=== PATIENT | female | born 1955 | race Caucasian/White ===

== ENCOUNTER → 2016-09-26 | Outpatient (CLI) | payer OTHER ==
[2016-09-26 13:11] LABS: BASO ABS # 0.04 K/uL (0-0.2); COMPLETE YES; EOS % 2.9 %; HEMATOCRIT 39.1 % (37-47); LYMPH ABS # 1.53 K/uL (1.2-3.4); MEAN CELL VOLUME 94.4 fL (80-100); MEAN CORPUSCULAR HEMOGLOBIN 31.2 pg (25-34); MEAN PLATELET VOLUME 10.1 fL (7.4-10.4); MONO % 9.4 %; NEUT % 49.7 %; PLATELET COUNT 278 K/uL (130-400); RED BLOOD COUNT 4.14 M/uL (4.2-5.4); WHITE BLOOD COUNT 4.13 K/uL (4.8-10.8)
[2016-09-26 13:35] LABS: ALT/SGPT 29 U/L (12-78); AST/SGOT 25 U/L (15-37); BLOOD UREA NITROGEN 19 mg/dl (7-18); BUN/CREATININE RATIO 22.7 (10-20); CALCIUM 8.7 mg/dl (8.5-10.1); CARBON DIOXIDE 28 mmol/L (21-32); CHLORIDE 106 mmol/L (98-107); CREATININE 0.85 mg/dl (0.60-1.20); GLUCOSE 82 mg/dl (70-99); POTASSIUM 4.1 mmol/L (3.5-5.1); SODIUM 139 mmol/L (136-145)
[2016-09-26 13:38] LABS: ALB/GLOB RATIO 1.1 (0.9-2); ALKALINE PHOSPHATASE 59 U/L (45-117); CHOLESTEROL 220 mg/dl (0-200); CHOLESTEROL/HDL RATIO 2.4; HDL CHOLESTEROL 90 mg/dl; LDL CHOLESTEROL CALCULATED 112 mg/dl; TRIGLYCERIDES 88 mg/dl (0-150); VERY LOW DENSITY LIPOPROT CALC 18 mg/dl
[2016-09-26 14:04] LABS: LYME DISEASE AB IGG NEG (NEG); LYME DISEASE AB IGM NEG (NEG)
== END | disposition home or self-care (01) ==
LOC: C.LABPBG 07:52
PROVIDERS: ATTEND Physician Assistant
DX: Z00.00 Encounter for general adult medical examination without abnormal findings (principal); R59.1 Generalized enlarged lymph nodes

== ENCOUNTER → 2017-09-05 | Outpatient (CLI) | payer OTHER ==
[2017-09-05 16:46] LABS: BASO % 0.6 %; BASO ABS # 0.03 K/uL (0-0.2); EOS % 3.3 %; EOS ABS # 0.18 K/uL (0-0.5); HEMATOCRIT 38.8 % (37-47); HEMOGLOBIN 13.1 g/dL (12.0-16.0); LYMPH % 35.8 %; LYMPH ABS # 1.94 K/uL (1.2-3.4); MEAN CELL VOLUME 92.2 fL (80-100); MEAN CORPUSCULAR HEMOGLOBIN 31.1 pg (25-34); MEAN CORPUSCULAR HGB CONC 33.8 g/dl (32-36); MEAN PLATELET VOLUME 10.6 fL (7.4-10.4); MONO % 8.3 %; MONO ABS # 0.45 K/uL (0.11-0.59); NEUT ABS # 2.82 K/uL (1.4-6.5); PLATELET COUNT 278 K/uL (130-400); RED CELL DISTRIBUTION WIDTH CV 12.7 % (11.5-14.5); WHITE BLOOD COUNT 5.42 K/uL (4.8-10.8)
[2017-09-05 17:17] LABS: ALBUMIN 4.1 gm/dl (3.4-5.0); ALKALINE PHOSPHATASE 60 U/L (45-117); ALT/SGPT 29 U/L (12-78); AST/SGOT 23 U/L (15-37); BLOOD UREA NITROGEN 21 mg/dl (7-18); CALCIUM 9.1 mg/dl (8.5-10.1); CARBON DIOXIDE 28 mmol/L (21-32); GLUCOSE 92 mg/dl (70-99); POTASSIUM 4.1 mmol/L (3.5-5.1); SODIUM 137 mmol/L (136-145); TOTAL PROTEIN 7.3 gm/dl (6.4-8.2)
== END | disposition home or self-care (01) ==
LOC: C.LABPBG 11:38
PROVIDERS: ATTEND Family Medicine
DX: R53.83 Other fatigue (principal); M25.50 Pain in unspecified joint; W57.XXXA Bitten or stung by nonvenomous insect and other nonvenomous arthropods, initial encounter

== ENCOUNTER 2024-01-17 08:47 | Observation (INO) ==
--- NOTE | 2024-01-17 09:03 | Emergency Department Note ---
Impression & Plan Weakness of both legs, Aphasia, Tongue biting ED Provider Note NAME: HAMILTON ELIZABETH AGE: 68 SEX: F : 1955 ARRIVES VIA: Ambulance INFORMANT: Patient, EMS report ED PROVIDER(S): Ritesh Cancino MD CHIEF COMPLAINT: Possible seizure, word finding difficulty MEDICAL DECISION MAKING: Patient presents to concern for possible seizures the patient reportedly woke up incontinent around 4 AM and had associated difficulty with speech for EMS. Patient was a trauma alert and also initiated as a stroke alert given these symptoms. IV was established and blood work was obtained. The patient does have bilateral lower extremity weakness may be more prominent on the right side. Word finding difficulty noted so code stroke was initiated. Patient not likely TNK candidate as last known well would been sometime prior to 4 AM and the patient reportedly fell and hit her head. Patient did have CT head CT angiography of the head and neck CT cervical spine noncontrast as well as CT lumbar spine given the patient's fall and leg weakness. Patient also loaded with 2 g of Keppra. Patient's blood work shows a normal white count H&H and platelet count kidney function is unremarkable. BSG 102. The patient's imaging studies are unremarkable. The patient has a negative shoulder x-ray CT angiography of the head and neck and Noncon CT. CT lumbar spine negative. Chest x-ray also negative. Patient does feel as though she knows when to use the bathroom currently has no sensory deficits in her lower extremities. I did discuss the patient's case with telestroke neurology Dr. Perry who did evaluate the patient. He was concerned about possible cord compression. Cord compression alone likely would not explain the patient's symptoms of word finding difficulty and possible seizure given the tongue biting incontinence but given that the patient does have lower extremity weakness and incontinence over the evening not unreasonable to obtain. However, the patient does feel the need to use the bathroom and does not have any saddle anesthesia. The patient was ordered an MRI with and without contrast of the brain as well as an MR lumbar spine without as stat. For reassessment clinically the patient seems less confused does not seem to have as much word finding difficulty. The patient did have her MRIs completed of the brain thoracic spine and lumbar spine. These were negative. I did reach out to Dr. Perry who recommended that the patient still obtain the cervical spine MRI but if negative could consider baby aspirin treatment. Critical Care: I have personally spent 35 minutes of critical care time in direct management of this patient. This includes bedside care, interpretation of diagnostic studies, and testing, discussion with consultants, patient, and family members, and other require inpatient management activities. This 35 minutes is in excess of all separately billable procedures. Discussion w/ other healthcare providers: Dr. Perry telestroke neurology Fariba Hannah PA-C and Dr. Martinez inpatient medicine service Prior /Outside records reviewed: None Differential diagnosis: Seizure, ICH, brain mass, stroke, infection, dehydration, metabolic abnormality, hypo/hyperglycemia, electrolyte imbalance, anemia, UTI, pneumonia, thyroid dysfunction among others were considered. Diagnostics, as interpreted by me: ECG: Normal sinus rhythm, rate of 75, normal intervals, normal axis no ST elevations. Cardiac monitoring: An order was placed for continuous cardiac monitoring. The monitor shows a rate of 75 with sinus rhythm. Patient was placed on pulse oximetry Medical decision rules: None Imaging studies: I informally interpreted the patient's CT head does not show obvious ICH with formal report to follow. HPI: Patient presents due to concern for waking up incontinent and then had weakness in her legs fell out of bed striking the right side of her shoulder as well as possibly her head. EMS reportedly presented and described that the patient had difficulty with speaking. At the time that they were at the home where prescription Freddie was negative. Patient reportedly only complained of right shoulder pain at the initial time of assessment. The patient's BSG was normal and had normal vital signs. Afebrile upon presentation. Patient does describe that she fell and hit her head and that she is never had any incontinence before. The patient does believe that she bit her tongue. No prior history of seizure. No prior history of stroke or mini stroke. The patient does not take any blood thinning medications. The patient does feel as though her legs are weak. Additional history was obtained from family. They have noticed that the patient has had some memory issues over the last months. She did have a remote history of anaplasmosis in the past. No reported recent tick bites. No prior history of stroke or mini stroke. No concerns for alcohol tobacco or drug use. PAST MEDICAL HISTORY: See Below PAST SURGICAL HISTORY: See Below SOCIAL HISTORY: See Below HOME MEDICATIONS: See Below ALLERGIES: See Below VITALS: See Below PHYSICAL EXAMINATION: GENERAL: NAD, non-toxic. EYE EXAM: Normal conjunctiva. PERRL, no anisocoria and EOM's grossly intact w/o pain. OROPHARYNX: Moist mucus membranes, grossly normal dentition. NECK: Trachea midline, no stridor. Supple, no nuchal rigidity, no adenopathy, non-tender. No signs of meningismus. FROM of the neck with good chin to chest and neck extension. LUNGS: Clear to auscultation. Normal chest wall mechanics. HEART: NSR, no MRG. ABDOMEN: Abdomen soft, non-tender, no masses, no rebound or guarding. BACK: No CVA TTP. SKIN: No rashes and no bruising. UPPER EXTREMITIES: Upper extremities are grossly normal. Right shoulder pain no obvious deformity. LOWER EXTREMITIES: Grossly normal, no edema. No sensory deficits and no saddle anesthesia. NEURO EXAM: Awake and alert does follow commands intermittently confused, cranial nerves II-XII grossly intact, word finding difficulty/expressive aphasia/inappropriate speech, moves all 4 extremities but weakly in the bilateral lower extremities may be more prominent on the right side compared to the left. Past Med/Surg History Problem List (Updated 01/17/24 @ 16:54 by Ritesh Cancino MD) Tongue biting (Acute) Aphasia (Acute) Weakness of both legs (Acute) Insomnia OAB (overactive bladder) Sensorineural hearing loss (SNHL) of left ear Tinnitus of left ear Dyslipidemia Seborrheic keratoses Vitamin D deficiency Medical History Hx of one miscarriage Surgical History H/O tooth extraction History of oral surgery H/O kidney donation S/P dilatation and curettage x 2 Family History Mother Bipolar disorder Cardiac disorder Depression Diabetes Gallbladder disease Myocardial infarction Hypertension Heart disease Father Cardiac disorder Diabetes Hypertension Myocardial infarction Heart disease Sister Cardiac disorder Myocardial infarction Brother Diabetes Hypertension Stroke Denies family history of Ovarian cancer Prostate cancer Breast cancer Colorectal cancer Social History Smoking Status: Never smoker Age Started Using Tobacco: 15; Age Quit Using Tobacco: 22; packs per day: 0.5; Second Hand Exposure: No; Do You Dip or Chew Tobacco: No; Hx Alcohol Use: No Hx Substance Use: No Preferred Language: Bengali Communication Ability: Effective Visual Impairment: No Limitations Hearing Ability: Normal Lead Athlete Required: No Beliefs That Will Affect Care: None marital status: / Current Living Situation: Alone current occupational status: 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 Occasionally eats chicken caffeine: Yes (two cups coffee/day ) during the past year weight has: remained stable Dental Care, Regularly: Yes Physical Activity Frequency: Daily Seatbelt Use: always Sunscreen Use: Yes Assistive Devices: None Allergies Allergies Allergy/AdvReac Type Severity Reaction Status Date / Time No Known Allergies Allergy Verified 01/17/24 10:25 Home Meds Home Medications Medication Instructions Recorded Confirmed coenzyme Q10 100 mg capsule 100 mg PO DAILY 01/17/24 01/17/24 (CoQ-10) ezetimibe 10 mg tablet (Zetia) 10 mg PO HS 01/17/24 01/17/24 pravastatin 20 mg tablet 20 mg PO QAM 01/17/24 01/17/24 Previous Rx's Medication Instructions Recorded hydroxyzine pamoate 25 mg capsule 25 mg PO HS PRN Insomnia #90 caps 01/17/24 (Vistaril) Results & Data (ED) Vital Signs Vital Signs - 24 hr 01/17/24 08:58 01/17/24 09:46 01/17/24 10:16 Temperature 36.6 C Temperature Source Oral Pulse Rate 73 Pulse Rate [Apical] 76 Pulse Rhythm Regular Pulse Rhythm [Apical] Regular Pulse Strength Normal Pulse Strength [Apical] Normal Respiratory Rate 20 18 Respiratory Effort / Characteristics Non-Labored Spontaneous Non-Labored Spontaneous Respiratory Depth Normal Normal Respiratory Pattern Regular Regular Blood Pressure 168/101 H Blood Pressure [Right Arm] 160/95 H Blood Pressure Mean 123 Blood Pressure Mean [Right Arm] 116 Blood Pressure Position Sitting Blood Pressure Position [Right Arm] Pulse Oximetry 96 99 99 Oxygen Delivery Method Room Air Room Air Room Air Sepsis Recent Fever Within 48 Hours No Sepsis New/Unexplained Change in Mental Status No Sepsis Action Taken by Nursing No Action Required 01/17/24 11:08 01/17/24 12:55 Temperature 36.6 C 36.8 C Temperature Source Oral Oral Pulse Rate Pulse Rate [Apical] 64 66 Pulse Rhythm Pulse Rhythm [Apical] Regular Regular Pulse Strength Pulse Strength [Apical] Normal Normal Respiratory Rate 18 18 Respiratory Effort / Characteristics Non-Labored Spontaneous Non-Labored Spontaneous Respiratory Depth Normal Normal Respiratory Pattern Regular Regular Blood Pressure Blood Pressure [Right Arm] 175/128 H 139/81 Blood Pressure Mean Blood Pressure Mean [Right Arm] 143 100 Blood Pressure Position Blood Pressure Position [Right Arm] Semi-fowlers Pulse Oximetry 99 98 Oxygen Delivery Method Room Air Room Air Sepsis Recent Fever Within 48 Hours Sepsis New/Unexplained Change in Mental Status Sepsis Action Taken by [facility] Medications Current Medication List: was personally reviewed by me Laboratory Data Attestation: I reviewed the patient's lab results. 01/17/24 08:55 01/17/24 08:55 Lab Results 01/17/24 01/17/24 Range/Units 08:55 11:05 WBC 8.90 (4.8-10.8) K/ul RBC 4.46 (4.20-5.40) M/uL Hgb 13.7 (12.0-16.0) g/dl Hct 39.6 (37.0-47.0) % MCV 88.8 (80.0-100.0) fL MCH 30.7 (25.0-34.0) pg MCHC 34.6 (32.0-36.0) g/dL RDW Std Deviation 39.1 (36.4-46.3) fL RDW Coeff of Nam 12.0 (11.5-14.5) % Plt Count 258 (130-400) K/uL MPV 9.8 (9.4-12.4) fL Immature Gran % (Auto) 0.2 % Neut % (Auto) 70.6 % Lymph % (Auto) 19.7 % [place] % (Auto) 8.2 % Eos % (Auto) 0.7 % Baso % (Auto) 0.6 % Neut # (Auto) 6.29 (1.40-6.50) K/uL Lymph # (Auto) 1.75 (1.20-3.40) K/uL [place] # (Auto) 0.73 H (0.11-0.59) K/uL Eos # (Auto) 0.06 (0.00-0.50) K/uL Baso # (Auto) 0.05 (0.00-0.20) K/uL Immature Gran # (Auto) 0.02 (0.01-0.20) K/uL PT 10.3 (9.0-12.0) Seconds INR 0.9 (0.9-1.1) APTT 26 (21-31) Seconds PTT Ratio 1.0 Sodium 137 (136-145) mmol/L Potassium 3.9 (3.5-5.1) mmol/L Chloride 103 (98-107) mmol/L Carbon Dioxide 26 (21-32) mmol/L Anion Gap 8 (3-11) BUN 18 (6-23) mg/dl Creatinine 0.80 (0.6-1.2) mg/dl Est Cr Clr Drug Dosing 68.3 ml/min eGFR 80.21 BUN/Creatinine Ratio 22.5 H (10-20) Glucose 102 H (70-99(Fasting)) mg/dl POC Glucose 110 H (70-99) mg/dl Calcium 9.6 (8.6-10.3) mg/dl Magnesium 2.1 (1.7-2.4) mg/dl Total Bilirubin 0.8 (0.2-1.0) mg/dl AST 29 (13-39) U/L ALT 21 (7-52) U/L Alkaline Phosphatase 55 (34-104) U/L Troponin I High Sens 12.2 (0-14) pg/ml Total Protein 7.3 (6.0-8.3) gm/dl Albumin 4.3 (3.4-5.0) gm/dl Globulin 3.0 (2.5-4.0) gm/dl Albumin/Globulin Ratio 1.4 (0.9-2) Urine Color Yellow Urine Appearance Clear (Clear) Urine pH 8.0 H (4.5-7.5) Ur Specific [place] 1.034 H (1.000-1.030) Urine Protein Negative (Negative) Urine Glucose (UA) Negative (Negative) Urine Ketones Trace H (Negative) Urine Blood Negative (Negative) Urine Nitrite Negative (Negative) Urine Bilirubin Negative (Negative) Urine Urobilinogen Negative (Negative) Ur Leukocyte Esterase Negative (Negative) Administered Medications Discontinued Medications Gadobutrol (Gadobutrol 65ml Vial) 7 ml IV ONCE ONE Stop: 01/17/24 12:32 Last Admin: 01/17/24 12:31 Dose: 7 ml Documented By: BRANT Ioversol (Optiray 320 125ml) 112 ml IV ONCE ONE Stop: 01/17/24 09:19 Last Admin: 01/17/24 09:18 Dose: 112 ml Documented By: MALU Levetiracetam (Levetiracetam 500 Mg/5 Ml Vial) 2,000 mg IV NOW STA Stop: 01/17/24 08:59 Last Admin: 01/17/24 09:22 Dose: 2,000 mg Documented By: BECCA Imaging Data Radiologist's Impression: Cervical Spine CT 01/17/24 08:58 CT cervical spine wo con CLINICAL HISTORY: 68 years-old Female with fall. Acute neck pain status post fall COMPARISON: CTA neck of same day TECHNIQUE: Multiple axial CT images of the cervical spine were obtained without contrast. A dose lowering technique was utilized adhering to the principles of ALARA. FINDINGS: There is straightening of the normal cervical lordosis. Moderate to severe disc space narrowing at C5-C6 with circumferential disc osteophyte complex. Multilevel facet arthrosis is moderate to severe at several levels on the left and also on the right at C3-C4. 3 mm anterolisthesis C3 on C4 is likely secondary to the aforementioned chronic facet arthrosis. C1-C2 articulation is preserved. The cervical soft tissues appear unremarkable. The visualized lung apices appear clear. IMPRESSION: No acute cervical spine fracture or subluxation. ACT 112: Negative or not required by law. The above report was generated using voice recognition software. It may contain grammatical, syntax or spelling errors. Electronically signed by: Howard Alexander M.D. 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 Coarsened interstitium is likely chronic. No pneumothorax, pleural effusion or airspace consolidation. Mild upper thoracic levoscoliosis. The bones appear grossly intact. IMPRESSION: No acute process. ACT 112: Negative or not required by law. The above report was generated using voice recognition software. It may contain grammatical, syntax or spelling errors. Electronically signed by: Howard Alexander M.D. 01/17/2024 10:[address] 01/17/24 08:58 CT angio neck with con, CT head/brain wo con CLINICAL HISTORY: neuro deficit, acute stroke suspected TECHNIQUE: Contiguous axial CT images of the head were acquired from the base of the skull to the vertex without intravenous contrast administration. CT angiography of the neck was performed following intravenous administration of iodinated contrast. Coronal and sagittal MIPS were obtained from the axial data set and were submitted for review. Automated dose lowering techniques and/or adjustment according to patient size were utilized for this examination. All measurements were calculated based on NASCET criteria. CT DOSE: 2992.66 mGy.cm Comparison: None available at the time of this dictation. FINDINGS: CT head: There is no acute intracranial hemorrhage or evidence of acute territorial infarction. No shift of the midline structures, mass effect, or extra-axial abnormalities are shown. Lungs and soft tissues are unremarkable. CTA Neck: A 3 vessel aortic arch is shown. There is no significant atherosclerotic plaque in the aortic arch or the origins of the innominate, left common carotid, and left subclavian arteries. The common carotid, external carotid, cervical segments of the internal carotid arteries, and the cervical segments of the vertebral arteries are patent without hemodynamically significant stenosis. The left vertebral artery is dominant. IMPRESSION: 1. No acute intracranial hemorrhage, evidence of acute territorial infarction, or other acute intracranial disease process. 2. No occlusion, hemodynamically significant stenosis, or dissection in the major cervical arteries. Assessment of stenosis of the internal carotid arteries is based on NASCET criteria. ACT 112: Negative or not required by law. Electronically signed by: Sami Tejada M.D. 01/17/2024 9:46 AM Head CTA 01/17/24 08:58 CT angio head w con CLINICAL HISTORY: 68 years-old Female with neuro deficit, acute stroke suspected. Acute stroke like symptoms COMPARISON STUDY: Head CT same day, brain MRI 05/01/2023 TECHNIQUE: Unenhanced axial CT scan of the brain is performed. Subsequently, following the IV administration of 112 cc of Optiray, CT angiogram of the brain was performed from the skull base to the vertex. Images are reviewed in the axial, sagittal, and coronal planes. 3-D MIPS images are created and assessed. IV contrast was administered without complication. All measurements were obtained according to NASCET criteria. A dose lowering technique was utilized adhering to the principles of ALARA. FINDINGS: CT BRAIN: Dictated separately. CT ANGIOGRAM OF THE BRAIN: The imaged bilateral internal carotid arteries are patent. The bilateral anterior and middle cerebral arteries are also patent. The vertebrobasilar system and posterior cerebral arteries are widely patent. origin of the right posterior cerebral artery. There is no aneurysm, high-grade stenosis, or proximal branch occlusion identified. Dural sinuses appear patent. IMPRESSION: Unremarkable CTA of the head. ACT 112: Negative or not required by law. The above report was generated using voice recognition software. It may contain grammatical, syntax or spelling errors. Electronically signed by: Howard Alexander M.D. 01/17/2024 9:[address] 01/17/24 08:58 CT lumbar spine wo con CLINICAL HISTORY: fall, leg weakness TECHNIQUE: Multidetector row helical CT of the lumbar spine was performed without administration of intravenous contrast. Coronal and sagittal reformations were obtained. Automated dose lowering techniques and/or adjustment according to patient size were utilized for this exam. Comparison: None available at the time of this dictation. FINDINGS: For counting purposes, the last complete intervertebral disc space is considered L5-S1. No acute fractures are identified. Vertebral body heights and disk spaces are well maintained. Vertebral body alignment is within normal limits. A hiatal hernia is seen. IMPRESSION: No evidence of acute bony injury. ACT 112: Negative or not required by law. Electronically signed by: Sami Tejada M.D. 01/17/2024 9:47 AM Neck CTA 01/17/24 08:58 CT angio neck with con, CT head/brain wo con CLINICAL HISTORY: neuro deficit, acute stroke suspected TECHNIQUE: Contiguous axial CT images of the head were acquired from the base of the skull to the vertex without intravenous contrast administration. CT angiography of the neck was performed following intravenous administration of iodinated contrast. Coronal and sagittal MIPS were obtained from the axial data set and were submitted for review. Automated dose lowering techniques and/or adjustment according to patient size were utilized for this examination. All measurements were calculated based on NASCET criteria. CT DOSE: 2992.66 mGy.cm Comparison: None available at the time of this dictation. FINDINGS: CT head: There is no acute intracranial hemorrhage or evidence of acute territorial infarction. No shift of the midline structures, mass effect, or extra-axial abnormalities are shown. Lungs and soft tissues are unremarkable. CTA Neck: A 3 vessel aortic arch is shown. There is no significant atherosclerotic plaque in the aortic arch or the origins of the innominate, left common carotid, and left subclavian arteries. The common carotid, external carotid, cervical segments of the internal carotid arteries, and the cervical segments of the vertebral arteries are patent without hemodynamically significant stenosis. The left vertebral artery is dominant. IMPRESSION: 1. No acute intracranial hemorrhage, evidence of acute territorial infarction, or other acute intracranial disease process. 2. No occlusion, hemodynamically significant stenosis, or dissection in the major cervical arteries. Assessment of stenosis of the internal carotid arteries is based on NASCET criteria. ACT 112: Negative or not required by law. Electronically signed by: Sami Tejada M.D. 01/17/2024 9:46 AM Shoulder X-Ray 01/17/24 08:58 XR shoulder RT min 2V routine CLINICAL HISTORY: fall TECHNIQUE: 3 views of the right shoulder were obtained. Comparison: None available at the time of this dictation. FINDINGS: There is no evidence of an acute fracture. Joint spaces are well-preserved. The overlying soft tissues are unremarkable. The visualized portions of the lungs are clear. IMPRESSION: No evidence of acute osseous injury. ACT 112: Negative or not required by law. Electronically signed by: Sami Tejada M.D. 01/17/2024 10:05 AM Lumbar Spine MRI 01/17/24 09:38 MR lumbar spine wo con CLINICAL HISTORY: 68 years-old Female with leg weakness, incontinence. Acute low back pain COMPARISON: Prior lumbar spine of same day TECHNIQUE: Multiplanar, multi sequence MRI of the lumbar spine was performed without intravenous contrast. FINDINGS: Motion degraded exam. Conus medullaris terminates at L1. Unremarkable appearance of the imaged thoracic spinal cord. Minimal marrow edema in the right L5, likely degenerative. No definite acute fracture, subluxation or endplate erosion. No paraspinal or epidural fluid collections. Normal bone marrow signal within the imaged sacrum. Mild multilevel intervertebral disc space narrowing, spondylitic spurring and facet arthrosis. T12-L1: No central canal or neural foraminal stenosis. L1-L2: No central canal or neural foraminal stenosis. L2-L3: Mild to moderate intervertebral disc space narrowing and spondylotic spurring with small circumferential annular disc bulge. Ligamentum flavum thickening with mild to moderate facet arthrosis. Central canal is patent. Minimal inferior bilateral foraminal narrowing. L3-L4: Mild to moderate intervertebral disc space narrowing and spondylotic spurring with small circumferential annular disc bulge. Ligamentum flavum thickening with mild to moderate facet arthrosis. Central canal is patent. Mild bilateral foraminal narrowing. L4-L5: Mild intervertebral disc space narrowing with tiny posterior annular disc bulge. Ligamentum flavum thickening with moderate facet arthrosis. Minimal right foraminal narrowing. The central canal and left neural foramen are patent. L5-S1: Tiny posterior annular disc bulge. Ligamentum thickening with moderate facet arthrosis. No central canal or foraminal narrowing. IMPRESSION: 1. Motion degraded exam with discogenic degeneration as above. 2. No high-grade central canal or foraminal narrowing. 3. No acute fracture. ACT 112: Negative or not required by law. The above report was generated using voice recognition software. It may contain grammatical, syntax or spelling errors. Electronically signed by: Howard Alexander M.D. 01/17/2024 12:24 PM Brain MRI 01/17/24 10:09 MR brain wo/w con HISTORY: 68 years-old Female ?seizure, leg weakness, expressive aphasia acute seizure-like activity COMPARISON: Brain MRI 05/01/2023, head CT 01/17/2024 TECHNIQUE: Multiplanar multisequence MRI of the brain was obtained with and without IV contrast FINDINGS: No restricted diffusion to suggest acute or subacute infarct. Midline structures appear unremarkable. No acute intracranial hemorrhage, midline shift, abnormal extra axial collection, hydrocephalus or intra-axial mass. Cerebral venous sinuses and major arterial flow voids appear patent. Skull, orbits and soft tissues are unremarkable. The mesial temporal lobes appear normal. No evidence of mesial temporal sclerosis. No evidence of cortical dysplasia or calderon matter heterotopia. Involutional changes with mild scattered subcentimeter T2/FLAIR hyperintense foci throughout the white matter, likely chronic microvascular ischemic disease. Findings are unchanged from prior. No abnormal enhancement. IMPRESSION: 1. No acute intracranial abnormality. 2. No abnormal enhancement. 3. Involutional changes with suggestion of mild chronic microvascular ischemic disease. ACT 112: Negative or not required by law. The above report was generated using voice recognition software. It may contain grammatical, syntax or spelling errors. Electronically signed by: Howard Alexander M.D. 01/17/2024 12:59 PM Thoracic Spine MRI 01/17/24 11:30 MR thoracic spine wo con CLINICAL HISTORY: leg weakness TECHNIQUE: Multiplanar sequences through the thoracic spine were obtained, without intravenous contrast. Comparison: None available at the time of this dictation. FINDINGS: Exam is limited by patient motion. The alignment is anatomical. Minimal disc disease is seen without significant canal or neuroforaminal stenosis. The spinal canal and neural foramina are patent. The spinal ligaments are intact, without evidence of disruption or abnormal signal intensity. The spinal cord is normal in signal intensity and there is no evidence of cord contusion. There is no evidence of an extradural, intradural, extramedullary or intramedullary lesion. Visualized soft tissues are normal. IMPRESSION: Limited exam without evidence of cord compression, significant neuroforaminal narrowing or ligamentous injury. ACT 112: Negative or not required by law. Electronically signed by: Sami Tejada M.D. 01/17/2024 1:11 PM Discharge Plan Visit Data Chief Complaint: Neuro Symptoms/Deficit ED Provider: Ritesh Cancino Discharge Problem: Weakness of both legs, Aphasia, Tongue biting Patient Disposition: Admitted As Inpatient Discharge Instructions Interventions: ED Discharge Assessment Last Done: 01/17/24 15:47
[2024-01-17 09:11] LABS: Basophils # (auto) 0.05 K/uL (0.00-0.20); Basophils % (auto) 0.6 %; Eosinophils # (auto) 0.06 K/uL (0.00-0.50); Eosinophils % (auto) 0.7 %; Hematocrit (blood only) 39.6 % (37.0-47.0); Hemoglobin 13.7 g/dl (12.0-16.0); Immature Granulocytes # (auto) 0.02 K/uL (0.01-0.20); Immature Granulocytes % (auto) 0.2 %; Lymphocytes # (auto) 1.75 K/uL (1.20-3.40); Lymphocytes % (auto) 19.7 %; Mean Corpuscular Hemoglobin 30.7 pg (25.0-34.0); Mean Corpuscular Hgb Conc 34.6 g/dL (32.0-36.0); Mean Corpuscular Volume 88.8 fL (80.0-100.0); Mean Platelet Volume 9.8 fL (9.4-12.4); Monocytes # (auto) 0.73 K/uL (0.11-0.59); Monocytes % (auto) 8.2 %; Neutrophils # (auto) 6.29 K/uL (1.40-6.50); Neutrophils % (auto) 70.6 %; Platelet Count 258 K/uL (130-400); RDW Standard Deviation 39.1 fL (36.4-46.3); Red Blood Count 4.46 M/uL (4.20-5.40)
[2024-01-17] MEDS: OPTIRAY 320 125ml IV ONE (09:18)
[2024-01-17] MEDS: levETIRAcetam 500 MG/5 ML VIAL IV STA (09:22)
[2024-01-17 09:35] LABS: Albumin Globulin Ratio 1.4 (0.9-2); Albumin Level 4.3 gm/dl (3.4-5.0); BUN Creatinine Ratio 22.5 (10-20); Bilirubin,Total 0.8 mg/dl (0.2-1.0); Calcium 9.6 mg/dl (8.6-10.3); Creatinine Clr Calc Pharmacy 68.3 ml/min; Magnesium 2.1 mg/dl (1.7-2.4); Potassium 3.9 mmol/L (3.5-5.1); Total Protein 7.3 gm/dl (6.0-8.3)
[2024-01-17 09:42] LABS: Troponin I High Sensitivity 12.2 pg/ml (0-14)
--- NOTE | 2024-01-17 09:48 | CT Scan Report ---
CT angio neck with con, CT head/brain wo con CLINICAL HISTORY: neuro deficit, acute stroke suspected TECHNIQUE: Contiguous axial CT images of the head were acquired from the base of the skull to the gabbi sophia without intravenous contrast administration. CT angiography of the neck was performed following intravenous administration of iodinated contrast. Coronal and sagittal MIPS were obtained from the ax ial data set and were submitted for review. Automated dose lowering techniques and/or adjustment acc ording to patient size were utilized for this examination. All measurements were calculated based on NASCET criteria. CT DOSE: 2992.66 mGy.cm Comparison: None available at the time of this dictation. FINDINGS: CT head: There is no acute intracranial hemorrhage or evidence of acute territorial infarction. No sh ift of the midline structures, mass effect, or extra-axial abnormalities are shown. Lungs and soft tissues are unremarkable. CTA Neck: A 3 vessel aortic arch is shown. There is no significant atherosclerotic plaque in the aor tic arch or the origins of the innominate, left common carotid, and left subclavian arteries. The co mmon carotid, external carotid, cervical segments of the internal carotid arteries, and the cervical segments of the vertebral arteries are patent without hemodynamically significant stenosis. The left vertebral artery is dominant. IMPRESSION: 1. No acute intracranial hemorrhage, evidence of acute territorial infarction, or other acute intrac ranial disease process. 2. No occlusion, hemodynamically significant stenosis, or dissection in the major cervical arteries. Assessment of stenosis of the internal carotid arteries is based on NASCET criteria. ACT 112: Negative or not required by law. Electronically signed by: Sami Tejada M.D. 01/17/2024 9:46 AM
--- NOTE | 2024-01-17 09:48 | CT Scan Report ---
CT lumbar spine wo con CLINICAL HISTORY: fall, leg weakness TECHNIQUE: Multidetector row helical CT of the lumbar spine was performed without administration of i ntravenous contrast. Coronal and sagittal reformations were obtained. Automated dose lowering techniq ues and/or adjustment according to patient size were utilized for this exam. Comparison: None available at the time of this dictation. FINDINGS: For counting purposes, the last complete intervertebral disc space is considered L5-S1. No acute fractures are identified. Vertebral body heights and disk spaces are well maintained. Verteb ral body alignment is within normal limits. A hiatal hernia is seen. IMPRESSION: No evidence of acute bony injury. ACT 112: Negative or not required by law. Electronically signed by: Sami Tejada M.D. 01/17/2024 9:47 AM
--- NOTE | 2024-01-17 09:49 | CT Scan Report ---
CT cervical spine wo con CLINICAL HISTORY: 68 years-old Female with fall. Acute neck pain status post fall COMPARISON: CTA neck of same day TECHNIQUE: Multiple axial CT images of the cervical spine were obtained without contrast. A dose low ering technique was utilized adhering to the principles of ALARA. FINDINGS: There is straightening of the normal cervical lordosis. Moderate to severe disc space narro wing at C5-C6 with circumferential disc osteophyte complex. Multilevel facet arthrosis is moderate to severe at several levels on the left and also on the right at C3-C4. 3 mm anterolisthesis C3 on C4 i s likely secondary to the aforementioned chronic facet arthrosis. C1-C2 articulation is preserved. The cervical soft tissues appear unremarkable. The visualized lung apices appear clear. IMPRESSION: No acute cervical spine fracture or subluxation. ACT 112: Negative or not required by law. The above report was generated using voice recognition software. It may contain grammatical, syntax o r spelling errors. Electronically signed by: Howard Alexander M.D. 01/17/2024 9:47 AM
--- NOTE | 2024-01-17 09:53 | CT Scan Report ---
CT angio head w con CLINICAL HISTORY: 68 years-old Female with neuro deficit, acute stroke suspected. Acute stroke lik e symptoms COMPARISON STUDY: Head CT same day, brain MRI 05/01/2023 TECHNIQUE: Unenhanced axial CT scan of the brain is performed. Subsequently, following the IV adminis tration of 112 cc of Optiray, CT angiogram of the brain was performed from the skull base to the vert ex. Images are reviewed in the axial, sagittal, and coronal planes. 3-D MIPS images are created and a ssessed. IV contrast was administered without complication. All measurements were obtained according to NASCET criteria. A dose lowering technique was utilized adhering to the principles of ALARA. FINDINGS: CT BRAIN: Dictated separately. CT ANGIOGRAM OF THE BRAIN: The imaged bilateral internal carotid arteries are patent. The bilateral anterior and middle cerebral arteries are also patent. The vertebrobasilar system and posterior cerebral arteries are widely fuentes nt. origin of the right posterior cerebral artery. There is no aneurysm, high-grade stenosis, o r proximal branch occlusion identified. Dural sinuses appear patent. IMPRESSION: Unremarkable CTA of the head. ACT 112: Negative or not required by law. The above report was generated using voice recognition software. It may contain grammatical, syntax o r spelling errors. Electronically signed by: Howard Alexander M.D. 01/17/2024 9:52 AM
--- NOTE | 2024-01-17 10:06 | XRay Report ---
XR shoulder RT min 2V routine CLINICAL HISTORY: fall TECHNIQUE: 3 views of the right shoulder were obtained. Comparison: None available at the time of this dictation. FINDINGS: There is no evidence of an acute fracture. Joint spaces are well-preserved. The overlying soft tissue s are unremarkable. The visualized portions of the lungs are clear. IMPRESSION: No evidence of acute osseous injury. ACT 112: Negative or not required by law. Electronically signed by: Sami Tejada M.D. 01/17/2024 10:05 AM
[2024-01-17 10:10] LABS: INR 0.9 (0.9-1.1); Partial Thromboplastin Time 26 Seconds (21-31); Prothrombin Time 10.3 Seconds (9.0-12.0)
--- NOTE | 2024-01-17 10:23 | XRay Report ---
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 Coarsened interstitium is likely chronic. No pneumothorax, pleural ef fusion or airspace consolidation. Mild upper thoracic levoscoliosis. The bones appear grossly intact. IMPRESSION: No acute process. ACT 112: Negative or not required by law. The above report was generated using voice recognition software. It may contain grammatical, syntax o r spelling errors. Electronically signed by: Howard Alexander M.D. 01/17/2024 10:22 AM
[2024-01-17 11:23] LABS: Appearance Urine Clear (Clear); Bilirubin Urine Negative (Negative); Blood Urine Negative (Negative); Color Urine Yellow; Glucose Urine UA Negative (Negative); Ketones Urine Trace (Negative); Leukocyte Esterase Urine Negative (Negative); Nitrite Urine Negative (Negative); Protein Urine Negative (Negative); Specific Gravity Urine 1.034 (1.000-1.030); Urobilinogen Urine Negative (Negative)
--- NOTE | 2024-01-17 12:26 | Magnetic Resonance Report ---
MR lumbar spine wo con CLINICAL HISTORY: 68 years-old Female with leg weakness, incontinence. Acute low back pain COMPARISON: Prior lumbar spine of same day TECHNIQUE: Multiplanar, multi sequence MRI of the lumbar spine was performed without intravenous cont rast. FINDINGS: Motion degraded exam. Conus medullaris terminates at L1. Unremarkable appearance of the helen ged thoracic spinal cord. Minimal marrow edema in the right L5, likely degenerative. No definite acut e fracture, subluxation or endplate erosion. No paraspinal or epidural fluid collections. Normal bone marrow signal within the imaged sacrum. Mild multilevel intervertebral disc space narrowing, spondyl itic spurring and facet arthrosis. T12-L1: No central canal or neural foraminal stenosis. L1-L2: No central canal or neural foraminal stenosis. L2-L3: Mild to moderate intervertebral disc space narrowing and spondylotic spurring with small circ umferential annular disc bulge. Ligamentum flavum thickening with mild to moderate facet arthrosis. C entral canal is patent. Minimal inferior bilateral foraminal narrowing. L3-L4: Mild to moderate intervertebral disc space narrowing and spondylotic spurring with small circ umferential annular disc bulge. Ligamentum flavum thickening with mild to moderate facet arthrosis. C entral canal is patent. Mild bilateral foraminal narrowing. L4-L5: Mild intervertebral disc space narrowing with tiny posterior annular disc bulge. Ligamentum f lavum thickening with moderate facet arthrosis. Minimal right foraminal narrowing. The central canal and left neural foramen are patent. L5-S1: Tiny posterior annular disc bulge. Ligamentum thickening with moderate facet arthrosis. No ce ntral canal or foraminal narrowing. IMPRESSION: 1. Motion degraded exam with discogenic degeneration as above. 2. No high-grade central canal or foraminal narrowing. 3. No acute fracture. ACT 112: Negative or not required by law. The above report was generated using voice recognition software. It may contain grammatical, syntax o r spelling errors. Electronically signed by: Howard Alexander M.D. 01/17/2024 12:24 PM
[2024-01-17] MEDS: GADOBUTROL 65ML VIAL IV ONE (12:31)
--- NOTE | 2024-01-17 12:42 | Electrocardiogram Report ---
Test Reason : Blood Pressure : */* mmHG Vent. Rate : 75 BPM Atrial Rate : 75 BPM P-R Int : 182 ms QRS Dur : 64 ms QT Int : 370 ms P-R-T Axes : 76 63 90 degrees QTcB Int : 413 ms Normal sinus rhythm with sinus arrhythmia Low voltage QRS Poor R wave progression, consider anterior AK vs. lead placement vs. LVH Abnormal ECG No previous ECGs available Confirmed by Hieu Lee ([id number]) on 01/17/2024 12:41:40 PM Referred By: REFERRED SELF Confirmed By: Hieu Lee
--- NOTE | 2024-01-17 13:01 | Magnetic Resonance Report ---
MR brain wo/w con HISTORY: 68 years-old Female ?seizure, leg weakness, expressive aphasia acute seizure-like activity COMPARISON: Brain MRI 05/01/2023, head CT 01/17/2024 TECHNIQUE: Multiplanar multisequence MRI of the brain was obtained with and without IV contrast FINDINGS: No restricted diffusion to suggest acute or subacute infarct. Midline structures appear unremarkable. No acute intracranial hemorrhage, midline shift, abnormal extra axial collection, hydrocephalus or i ntra-axial mass. Cerebral venous sinuses and major arterial flow voids appear patent. Skull, orbits and soft tissues a re unremarkable. The mesial temporal lobes appear normal. No evidence of mesial temporal sclerosis. N o evidence of cortical dysplasia or calderon matter heterotopia. Involutional changes with mild scattered subcentimeter T2/FLAIR hyperintense foci throughout the white matter, likely chronic microvascular i schemic disease. Findings are unchanged from prior. No abnormal enhancement. IMPRESSION: 1. No acute intracranial abnormality. 2. No abnormal enhancement. 3. Involutional changes with suggestion of mild chronic microvascular ischemic disease. ACT 112: Negative or not required by law. The above report was generated using voice recognition software. It may contain grammatical, syntax o r spelling errors. Electronically signed by: Howard Alexander M.D. 01/17/2024 12:59 PM
--- NOTE | 2024-01-17 13:12 | Magnetic Resonance Report ---
MR thoracic spine wo con CLINICAL HISTORY: leg weakness TECHNIQUE: Multiplanar sequences through the thoracic spine were obtained, without intravenous contra st. Comparison: None available at the time of this dictation. FINDINGS: Exam is limited by patient motion. The alignment is anatomical. Minimal disc disease is seen without significant canal or neuroforamina l stenosis. The spinal canal and neural foramina are patent. The spinal ligaments are intact, without evidence of disruption or abnormal signal intensity. The spi nal cord is normal in signal intensity and there is no evidence of cord contusion. There is no eviden ce of an extradural, intradural, extramedullary or intramedullary lesion. Visualized soft tissues are normal. IMPRESSION: Limited exam without evidence of cord compression, significant neuroforaminal narrowing or ligamentou s injury. ACT 112: Negative or not required by law. Electronically signed by: Sami Tejada M.D. 01/17/2024 1:11 PM
--- NOTE | 2024-01-17 15:08 | History & Physical Report ---
Date of Service January 17, 2024 Assessment & Plan (1) Weakness of both legs: Plan: Fall, incontinence of urine x 1, and tounge biting in am; ? Seizure-like activity No reported history of seizure; No illicit drug use, ETOH use, or indications of infection - Admit - Recent fall/injury this morning where she fell into bookcase, striking right shoulder; on ground x 20 minutes, no LOC per patient - Stroke alert was initially called- Telestroke recommended ASA 81mg daily + cervical spine MRI (pending) - CBC grossly WNL, CMP grossly WNL - Avid hiker + h/o anaplasmosis which went undetected for weeks- pending tick panel - Pending B12 levels - Pending TSH - CXR no acute process; Shoulder x-ray (R) no evidence acute osseous injury; Head CT no acute findings; Cervical spine CT no acute cervical spine fracture or subluxation; Lumbar spine CT no evidence of acute bony injury; Head CTA unremarkable CTA head; Neck CTA no acute findings; Brain MRI no acute findings, involutional changes suggestive of mild chronic microvascular ischemic disease; Thoracic spine MRI without evidence of cord compression, significant neuroforaminal narrowing, or ligamentous injury; Lumbar spine MRI no high-grade central canal or foraminal narrowing, no acute fracture - Pending cervical spine MRI- recommended per telestroke - ASA 81mg daily - Neuro consulted Appreciate neurology input + recs Plan Dyslipidemia- ezetimibe, pravastatin; 09/2023 last lipid panel; pending repeat since starting new medication Insomnia- Last visit with PCP 09/20/2023, issue was addressed- not currently taking any medications for management of such; added melatonin for now Dispo: Admit Diet: Heart healthy VTE Prophylaxis: Lovenox Code: Full Admission and Anticipated Discharge Date Admission Date: 01/17/2024 History of Present Illness Chief Complaint: BLE weakness Primary Care Provider: Julissa Carr DO 68-year-old female presenting via EMS for sudden onset of incontinence, tongue biting, and fall at home. And route to ED, patient having aphasia. ED course: CBC grossly WNL with exception of monocytes 0.73; PT/INR WNL; CMP BUN/creatinine ratio 22.5, glucose 102; troponin 12.2; UA pH 8, SG 1.034, ketones present; CXR no acute process; shoulder x-ray (right) no evidence of acute osseous injury; head CT no acute intracranial hemorrhage, evidence of acute territorial infarct, or acute intracranial disease process, no occlusion, hemodynamically significant stenosis, or dissection of the major cervical arteries; cervical spine CT no acute cervical spine fracture or subluxation; lumbar spine CT no evidence of acute bony injury; head CTA unremarkable CTA of the head; neck CTA no acute intracranial hemorrhage, evidence of acute territorial infarct, or acute intracranial disease process, no occlusion hemodynamically significant stenosis, or dissection of major cervical arteries (assessment of stenosis based on NASCET criteria); brain MRI no acute intracranial abnormality, no abnormal enhancement, involutional changes with suggestion of mild chronic microvascular ischemic disease; thoracic spine MRI limited exam without evidence of cord compression, significant neuroforaminal narrowing or ligamentous injury; lumbar spine MRI motion degraded exam with discogenic degeneration, no high-grade central canal or foraminal narrowing, no acute fracture; pending cervical spine MRI; EKG NSR with sinus arrhythmia, low voltage QRS, poor R wave progression, rate 75 bpm, QTc 413.; Provided with Hi in ED. Patient 68-year-old female PMHx of having 1 kidney (donated second), dyslipidemia, and insomnia who presents for neurological deficits. Multiple family members in room at time of visit, helped provide a history. Patient awoke at 0400 the day of arrival noted to be incontinent of urine, and possibly bit her tongue. Got out of bed, weakness in bilateral legs and fell into a bookcase, striking her right shoulder. Pt states that she does not believe that she lost consciousness, however she remained on the ground for probably 20 minutes before she was able to get back up. Since then she has had ongoing worsening weakness bilateral lower extremities. States that it did not progress in any specific direction but that she just had worsening weakness that is not improving. Additional pain that it is in her right eyeball rather than behind the eye, reporting no headaches or pain with moving her eyes. Having mild blurring of vision right eye only, resolved slightly when putting glasses on. In terms of additional symptoms, patient denies chest pain, shortness of breath, palpitations, headache, fever/chills, abdominal pain, N/V/D/C, dysuria, numbness and tingling of upper extremities, known syncopal episodes, or abnormalities in mood. Patient states that this is not happened before. Did not take a.m. medications. Of note, patient is an avid hiker, and is outdoors at least weekly if not more. 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 No known tick bites, but states that it is possible she had been bit by a tick as she did not know the last time. No history of seizures. No recent sexual activity or concerns for STDs. No illicit drug use, or alcohol use. Daughter was able to discuss with me separately that she has noted decreases and the patient's memory from her baseline. States that the patient will be told a story that does not involve her, days later she will retell the story as if she had had it happen to her. Additionally notes that the patient does not recall things that are told to her within the same day, and often times lead to be told on multiple events the same information. History of psychiatric disorders and the patient's mother, per daughter. Please see Dr. Martinez's attestation for adjustments/additions to treatment plan. Allergies Allergy/AdvReac Type Severity Reaction Status Date / Time No Known Allergies Allergy Verified 01/17/24 10:25 Home Medications Medication Instructions Recorded Confirmed Type coenzyme Q10 100 mg capsule 100 mg PO DAILY 01/17/24 01/17/24 History (CoQ-10) ezetimibe 10 mg tablet (Zetia) 10 mg PO HS 01/17/24 01/17/24 History hydroxyzine pamoate 25 mg capsule 25 mg PO HS PRN Insomnia #90 caps 01/17/24 Rx (Vistaril) pravastatin 20 mg tablet 20 mg PO QAM 01/17/24 01/17/24 History Past Med/Surg History Problem List (Updated 01/17/24 @ 16:54 by Ritesh Cancino MD) Tongue biting (Acute) Aphasia (Acute) Weakness of both legs (Acute) Insomnia OAB (overactive bladder) Sensorineural hearing loss (SNHL) of left ear Tinnitus of left ear Dyslipidemia Seborrheic keratoses Vitamin D deficiency Medical History Hx of one miscarriage Surgical History H/O tooth extraction History of oral surgery H/O kidney donation S/P dilatation and curettage x 2 Family History Mother Bipolar disorder Cardiac disorder Depression Diabetes Gallbladder disease Myocardial infarction Hypertension Heart disease Father Cardiac disorder Diabetes Hypertension Myocardial infarction Heart disease Sister Cardiac disorder Myocardial infarction Brother Diabetes Hypertension Stroke Denies family history of Ovarian cancer Prostate cancer Breast cancer Colorectal cancer Social History Smoking Status: Never smoker Age Started Using Tobacco: 15; Age Quit Using Tobacco: 22; packs per day: 0.5; Second Hand Exposure: No; Do You Dip or Chew Tobacco: No; Hx Alcohol Use: No Hx Substance Use: No Preferred Language: Slovenian Communication Ability: Effective Visual Impairment: No Limitations Hearing Ability: Normal Customer Management Specialist Required: No Beliefs That Will Affect Care: None marital status: / Current Living Situation: Alone current occupational status: retired 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 Occasionally eats chicken caffeine: Yes (two cups coffee/day ) during the past year weight has: remained stable Dental Care, Regularly: Yes Physical Activity Frequency: Daily Seatbelt Use: always Sunscreen Use: Yes Assistive Devices: None Review of Systems Review of Systems: All systems reviewed & are unremarkable except as noted in Subjective Physical Exam Physical Exam: General: No acute distress Skin: Warm and dry, without rashes or lesions Head: Normocephalic, atraumatic Eyes: PERRL, conjunctivae clear w/ exception R eye having prominent vessel lateral aspect, sclera non-icteric; EOM intact; wears glasses ENT: External ear and ear canal without swelling; nose atraumatic; good dentition, tongue normal appearance Neck: Supple, no LAD; no meningeal signs Cardio: RRR, no M/G/R, S1 and S2 normal Resp: No respiratory distress, Lungs CTA in all lobes bilaterally, no wheezes, rales, or rhonchi Abdomen: Soft, symmetric, nontender; No masses or hepatosplenomegaly; Bowel sounds normoactive MSK: No deformities, full ROM throughout; pulses palpable and equal; no edema. Neuro: Awake, alert II- PERRL, no VF deficits III, IV, - EOMs intact, no deviation, no nystagmus V- Normal sensation in all locations VII- No asymmetry, no nasolabial fold flattening VIII- Normal hearing to speech IX, X- Normal palatal elevation, no ulnar deviation XI- 4/5 head turn + shoulder shrug bilaterally XII- Midline tongue protrusion Motor: 5/5 strength throughout BUE; 3/5 strength BLE, ? contralateral heel pressing downward w/ testing Sensory: Normal sensation throughout, Romberg absent Coordination: No tremor, no dysmetria Reflexes: Slightly diminished BLE, symmetric Gait: Unable to asses; "legs are weak" Psych: Appropriate mood and affect; good judgement and insight. Multiple family members present in room at time of visit. Results & Data Results & Data Vital Signs (Past 12 Hours) Vital Signs Temp Pulse Pulse Resp BP BP Pulse Ox 01/17/24 12:55 36.8 C 66 18 139/81 98 01/17/24 11:08 36.6 C 64 18 175/128 H 99 01/17/24 10:16 99 01/17/24 09:46 76 18 160/95 H 99 01/17/24 08:58 36.6 C 73 20 168/101 H 96 O2 Del Method 01/17/24 12:55 Room Air 01/17/24 11:08 Room Air 01/17/24 10:16 Room Air 01/17/24 09:46 Room Air 01/17/24 08:58 Room Air Laboratory Results 01/17/24 01/17/24 11:05 08:55 WBC 8.90 RBC 4.46 Hgb 13.7 Hct 39.6 MCV 88.8 MCH 30.7 MCHC 34.6 RDW Std Deviation 39.1 RDW Coeff of Nam 12.0 Plt Count 258 MPV 9.8 Immature Gran % (Auto) 0.2 Neut % (Auto) 70.6 Lymph % (Auto) 19.7 [place] % (Auto) 8.2 Eos % (Auto) 0.7 Baso % (Auto) 0.6 Neut # (Auto) 6.29 Lymph # (Auto) 1.75 [place] # (Auto) 0.73 H Eos # (Auto) 0.06 Baso # (Auto) 0.05 Immature Gran # (Auto) 0.02 PT 10.3 INR 0.9 APTT 26 PTT Ratio 1.0 Sodium 137 Potassium 3.9 Chloride 103 Carbon Dioxide 26 Anion Gap 8 BUN 18 Creatinine 0.80 Est Cr Clr Drug Dosing 68.3 eGFR 80.21 BUN/Creatinine Ratio 22.5 H Glucose 102 H POC Glucose 110 H Calcium 9.6 Magnesium 2.1 Total Bilirubin 0.8 AST 29 ALT 21 Alkaline Phosphatase 55 Troponin I High Sens 12.2 Total Protein 7.3 Albumin 4.3 Globulin 3.0 Albumin/Globulin Ratio 1.4 Urine Color Yellow Urine Appearance Clear Urine pH 8.0 H Ur Specific Brandon 1.034 H Urine Protein Negative Urine Glucose (UA) Negative Urine Ketones Trace H Urine Blood Negative Urine Nitrite Negative Urine Bilirubin Negative Urine Urobilinogen Negative Ur Leukocyte Esterase Negative Diagnostic Findings Cervical Spine CT 01/17/24 08:58 CT cervical spine wo con CLINICAL HISTORY: 68 years-old Female with fall. Acute neck pain status post fall COMPARISON: CTA neck of same day TECHNIQUE: Multiple axial CT images of the cervical spine were obtained without contrast. A dose lowering technique was utilized adhering to the principles of ALARA. FINDINGS: There is straightening of the normal cervical lordosis. Moderate to severe disc space narrowing at C5-C6 with circumferential disc osteophyte complex. Multilevel facet arthrosis is moderate to severe at several levels on the left and also on the right at C3-C4. 3 mm anterolisthesis C3 on C4 is likely secondary to the aforementioned chronic facet arthrosis. C1-C2 articulation is preserved. The cervical soft tissues appear unremarkable. The visualized lung apices appear clear. IMPRESSION: No acute cervical spine fracture or subluxation. ACT 112: Negative or not required by law. The above report was generated using voice recognition software. It may contain grammatical, syntax or spelling errors. Electronically signed by: Howard Alexander M.D. 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 Coarsened interstitium is likely chronic. No pneumothorax, pleural effusion or airspace consolidation. Mild upper thoracic levoscoliosis. The bones appear grossly intact. IMPRESSION: No acute process. ACT 112: Negative or not required by law. The above report was generated using voice recognition software. It may contain grammatical, syntax or spelling errors. Electronically signed by: Howard Alexander M.D. 01/17/2024 10:[address] 01/17/24 08:58 CT angio neck with con, CT head/brain wo con CLINICAL HISTORY: neuro deficit, acute stroke suspected TECHNIQUE: Contiguous axial CT images of the head were acquired from the base of the skull to the vertex without intravenous contrast administration. CT angiography of the neck was performed following intravenous administration of iodinated contrast. Coronal and sagittal MIPS were obtained from the axial data set and were submitted for review. Automated dose lowering techniques and/or adjustment according to patient size were utilized for this examination. All measurements were calculated based on NASCET criteria. CT DOSE: 2992.66 mGy.cm Comparison: None available at the time of this dictation. FINDINGS: CT head: There is no acute intracranial hemorrhage or evidence of acute territorial infarction. No shift of the midline structures, mass effect, or extra-axial abnormalities are shown. Lungs and soft tissues are unremarkable. CTA Neck: A 3 vessel aortic arch is shown. There is no significant atherosclerotic plaque in the aortic arch or the origins of the innominate, left common carotid, and left subclavian arteries. The common carotid, external carotid, cervical segments of the internal carotid arteries, and the cervical segments of the vertebral arteries are patent without hemodynamically significant stenosis. The left vertebral artery is dominant. IMPRESSION: 1. No acute intracranial hemorrhage, evidence of acute territorial infarction, or other acute intracranial disease process. 2. No occlusion, hemodynamically significant stenosis, or dissection in the major cervical arteries. Assessment of stenosis of the internal carotid arteries is based on NASCET criteria. ACT 112: Negative or not required by law. Electronically signed by: Sami Tejada M.D. 01/17/2024 9:46 AM Head CTA 01/17/24 08:58 CT angio head w con CLINICAL HISTORY: 68 years-old Female with neuro deficit, acute stroke suspected. Acute stroke like symptoms COMPARISON STUDY: Head CT same day, brain MRI 05/01/2023 TECHNIQUE: Unenhanced axial CT scan of the brain is performed. Subsequently, following the IV administration of 112 cc of Optiray, CT angiogram of the brain was performed from the skull base to the vertex. Images are reviewed in the axial, sagittal, and coronal planes. 3-D MIPS images are created and assessed. IV contrast was administered without complication. All measurements were obtained according to NASCET criteria. A dose lowering technique was utilized adhering to the principles of ALARA. FINDINGS: CT BRAIN: Dictated separately. CT ANGIOGRAM OF THE BRAIN: The imaged bilateral internal carotid arteries are patent. The bilateral anterior and middle cerebral arteries are also patent. The vertebrobasilar system and posterior cerebral arteries are widely patent. origin of the right posterior cerebral artery. There is no aneurysm, high-grade stenosis, or proximal branch occlusion identified. Dural sinuses appear patent. IMPRESSION: Unremarkable CTA of the head. ACT 112: Negative or not required by law. The above report was generated using voice recognition software. It may contain grammatical, syntax or spelling errors. Electronically signed by: Howard Alexander M.D. 01/17/2024 9:[address] 01/17/24 08:58 CT lumbar spine wo con CLINICAL HISTORY: fall, leg weakness TECHNIQUE: Multidetector row helical CT of the lumbar spine was performed without administration of intravenous contrast. Coronal and sagittal reformations were obtained. Automated dose lowering techniques and/or adjustment according to patient size were utilized for this exam. Comparison: None available at the time of this dictation. FINDINGS: For counting purposes, the last complete intervertebral disc space is considered L5-S1. No acute fractures are identified. Vertebral body heights and disk spaces are well maintained. Vertebral body alignment is within normal limits. A hiatal hernia is seen. IMPRESSION: No evidence of acute bony injury. ACT 112: Negative or not required by law. Electronically signed by: Sami Tejada M.D. 01/17/2024 9:47 AM Neck CTA 01/17/24 08:58 CT angio neck with con, CT head/brain wo con CLINICAL HISTORY: neuro deficit, acute stroke suspected TECHNIQUE: Contiguous axial CT images of the head were acquired from the base of the skull to the vertex without intravenous contrast administration. CT angiography of the neck was performed following intravenous administration of iodinated contrast. Coronal and sagittal MIPS were obtained from the axial data set and were submitted for review. Automated dose lowering techniques and/or adjustment according to patient size were utilized for this examination. All measurements were calculated based on NASCET criteria. CT DOSE: 2992.66 mGy.cm Comparison: None available at the time of this dictation. FINDINGS: CT head: There is no acute intracranial hemorrhage or evidence of acute territorial infarction. No shift of the midline structures, mass effect, or extra-axial abnormalities are shown. Lungs and soft tissues are unremarkable. CTA Neck: A 3 vessel aortic arch is shown. There is no significant atherosclerotic plaque in the aortic arch or the origins of the innominate, left common carotid, and left subclavian arteries. The common carotid, external carotid, cervical segments of the internal carotid arteries, and the cervical segments of the vertebral arteries are patent without hemodynamically significant stenosis. The left vertebral artery is dominant. IMPRESSION: 1. No acute intracranial hemorrhage, evidence of acute territorial infarction, or other acute intracranial disease process. 2. No occlusion, hemodynamically significant stenosis, or dissection in the major cervical arteries. Assessment of stenosis of the internal carotid arteries is based on NASCET criteria. ACT 112: Negative or not required by law. Electronically signed by: Sami Tejada M.D. 01/17/2024 9:46 AM Shoulder X-Ray 01/17/24 08:58 XR shoulder RT min 2V routine CLINICAL HISTORY: fall TECHNIQUE: 3 views of the right shoulder were obtained. Comparison: None available at the time of this dictation. FINDINGS: There is no evidence of an acute fracture. Joint spaces are well-preserved. The overlying soft tissues are unremarkable. The visualized portions of the lungs are clear. IMPRESSION: No evidence of acute osseous injury. ACT 112: Negative or not required by law. Electronically signed by: Sami Tejada M.D. 01/17/2024 10:05 AM Lumbar Spine MRI 01/17/24 09:38 MR lumbar spine wo con CLINICAL HISTORY: 68 years-old Female with leg weakness, incontinence. Acute low back pain COMPARISON: Prior lumbar spine of same day TECHNIQUE: Multiplanar, multi sequence MRI of the lumbar spine was performed without intravenous contrast. FINDINGS: Motion degraded exam. Conus medullaris terminates at L1. Unremarkable appearance of the imaged thoracic spinal cord. Minimal marrow edema in the right L5, likely degenerative. No definite acute fracture, subluxation or endplate erosion. No paraspinal or epidural fluid collections. Normal bone marrow signal within the imaged sacrum. Mild multilevel intervertebral disc space narrowing, spondylitic spurring and facet arthrosis. T12-L1: No central canal or neural foraminal stenosis. L1-L2: No central canal or neural foraminal stenosis. L2-L3: Mild to moderate intervertebral disc space narrowing and spondylotic spurring with small circumferential annular disc bulge. Ligamentum flavum thickening with mild to moderate facet arthrosis. Central canal is patent. Minimal inferior bilateral foraminal narrowing. L3-L4: Mild to moderate intervertebral disc space narrowing and spondylotic spurring with small circumferential annular disc bulge. Ligamentum flavum thickening with mild to moderate facet arthrosis. Central canal is patent. Mild bilateral foraminal narrowing. L4-L5: Mild intervertebral disc space narrowing with tiny posterior annular disc bulge. Ligamentum flavum thickening with moderate facet arthrosis. Minimal right foraminal narrowing. The central canal and left neural foramen are patent. L5-S1: Tiny posterior annular disc bulge. Ligamentum thickening with moderate facet arthrosis. No central canal or foraminal narrowing. IMPRESSION: 1. Motion degraded exam with discogenic degeneration as above. 2. No high-grade central canal or foraminal narrowing. 3. No acute fracture. ACT 112: Negative or not required by law. The above report was generated using voice recognition software. It may contain grammatical, syntax or spelling errors. Electronically signed by: Howard Alexander M.D. 01/17/2024 12:24 PM Brain MRI 01/17/24 10:09 MR brain wo/w con HISTORY: 68 years-old Female ?seizure, leg weakness, expressive aphasia acute seizure-like activity COMPARISON: Brain MRI 05/01/2023, head CT 01/17/2024 TECHNIQUE: Multiplanar multisequence MRI of the brain was obtained with and without IV contrast FINDINGS: No restricted diffusion to suggest acute or subacute infarct. Midline structures appear unremarkable. No acute intracranial hemorrhage, midline shift, abnormal extra axial collection, hydrocephalus or intra-axial mass. Cerebral venous sinuses and major arterial flow voids appear patent. Skull, orbits and soft tissues are unremarkable. The mesial temporal lobes appear normal. No evidence of mesial temporal sclerosis. No evidence of cortical dysplasia or calderon matter heterotopia. Involutional changes with mild scattered subcentimeter T2/FLAIR hyperintense foci throughout the white matter, likely chronic microvascular ischemic disease. Findings are unchanged from prior. No abnormal enhancement. IMPRESSION: 1. No acute intracranial abnormality. 2. No abnormal enhancement. 3. Involutional changes with suggestion of mild chronic microvascular ischemic disease. ACT 112: Negative or not required by law. The above report was generated using voice recognition software. It may contain grammatical, syntax or spelling errors. Electronically signed by: Howard Alexander M.D. 01/17/2024 12:59 PM Thoracic Spine MRI 01/17/24 11:30 MR thoracic spine wo con CLINICAL HISTORY: leg weakness TECHNIQUE: Multiplanar sequences through the thoracic spine were obtained, without intravenous contrast. Comparison: None available at the time of this dictation. FINDINGS: Exam is limited by patient motion. The alignment is anatomical. Minimal disc disease is seen without significant canal or neuroforaminal stenosis. The spinal canal and neural foramina are patent. The spinal ligaments are intact, without evidence of disruption or abnormal signal intensity. The spinal cord is normal in signal intensity and there is no evidence of cord contusion. There is no evidence of an extradural, intradural, extramedullary or intramedullary lesion. Visualized soft tissues are normal. IMPRESSION: Limited exam without evidence of cord compression, significant neuroforaminal narrowing or ligamentous injury. ACT 112: Negative or not required by law. Electronically signed by: Sami Tejada M.D. 01/17/2024 1:11 PM Medications Administered Keppra 2,000mg IV x 1 Code Status & VTE Plan Code Status Full VTE Prophylaxis Plan VTE Prophylaxis will be ordered: Yes Supervising Physician Co-Signing Physician Notes I personally saw and examined the patient. I independently reviewed the labs, EKG, imaging, problem list, medication list, past medical history and family history. I verified all escobar points and agree with Kait Hannah PA-C with the following exceptions and/or additions: 68 year old female presents to the ER with bilateral lower extremity weakness after waking up this morning having urinated in her bed and bitten her tongue. Sudden onset of symptoms. Not present yesterday O/E HS RRR, no murmurs, Chest CTAB, Abdo SNT, b/l hip, knee, ankle dorsi/plantarflex 3/5 without pain, associated numbness, b/l knee and ankle reflexes 3+ A/P Bilateral lower extremity weakness - ?secondary to seizure like activity although given persistence will get MRI cervical spine to complete workup to make sure no anatomical compression. Intact/hyper-reflexes suggest upper [place] et iology therefore not GBS - LP deferred. Consult neurology PG Care Time/CCT Total # of Minutes Spent Total Time Spent with Patient: Total time spent is greater than 50% in coordination of care (as documented) at patient's floor/unit and/or counseling patient: Coding Level of Care Code 73964 INT INP/OBS CARE 3/75MIN Diagnoses Weakness of both legs R29.898 Time Spent (min) 80
[2024-01-17] MEDS ORDERED: MELATONIN 3 MG TAB PO PRN (16:15)
[2024-01-17] MEDS: ENOXAPARIN INJ 30 MG/0.3 ML SYR SQ SCH (17:50)
[2024-01-17] MEDS ORDERED: ACETAMINOPHEN 325 MG TAB PO PRN (19:23)
[2024-01-17] MEDS: ENOXAPARIN INJ 40 MG/0.4 ML SYR SQ SCH (21:01)
[2024-01-17] MEDS: hydrOXYzine HCl 25 MG TAB PO PRN (21:01)
[2024-01-17] MEDS: EZETIMIBE 10 MG TAB PO SCH (21:01)
--- NOTE | 2024-01-18 02:46 | Magnetic Resonance Report ---
EXAM: MR cervical spine wo con CLINICAL HISTORY: Possible seizures the patient reportedly woke up incontinent around 4 AM and had associated difficulty with speech for EMS Bilateral lower extremity weakness may be more prominent on the right side CT''s all negative. patient answered questions appropriately. walked into MRI scan room w/o difficulty. repeated scans due to patient motion. MRI brain, thoracic and lumbar done on 01/16. CT cervical spine 01/16. CT head 01/16. room 229-2 225 images TECHNIQUE: Multisequential and multiplanar images of the cervical spine were submitted for review without contrast. COMPARISON: None. FINDINGS: Straightening of the cervical lordosis. Alignment of the spine is maintained. Mild marrow edema is noted involving the inferior endplate of C5 and superior endplate of C6 vertebra. Most of the discs show degenerative changes. Reduction of the C5-C6 disc height is noted. The cord is normal in caliber and signal. There is no cerebellar ectopia. The visualized paraspinal soft tissues are grossly unremarkable. C2-C3: No disc herniation. No central canal stenosis or neuroforaminal narrowing. C3-C4: No disc herniation. No central canal stenosis or neuroforaminal narrowing. C4-C5: No disc herniation. No central canal stenosis or neuroforaminal narrowing. C5-C6: Mild disc bulge is noted causing mild spinal canal and bilateral neural foraminal stenosis. C6-C7: No disc herniation. No central canal stenosis or neuroforaminal narrowing. C7-T1: No disc herniation. No central canal stenosis or neuroforaminal narrowing. IMPRESSION: 1. Degenerative changes. 2. Mild marrow edema is noted involving the inferior endplate of C5 and superior endplate of C6 vertebra, likely degenerative. 3. Reduction of the C5-C6 disc height is noted. Mild posterior disc bulge is noted at this level causing mild spinal canal and bilateral neural foraminal stenosis. Electronically signed by Eliseo Biggs 01-18-2024 02:46 AM
[2024-01-18 06:25] LABS: Hematocrit (blood only) 38.3 % (37.0-47.0); Mean Corpuscular Hemoglobin 30.7 pg (25.0-34.0); Mean Corpuscular Hgb Conc 33.9 g/dL (32.0-36.0); Mean Corpuscular Volume 90.3 fL (80.0-100.0); Mean Platelet Volume 9.7 fL (9.4-12.4); Platelet Count 258 K/uL (130-400); RDW Coefficient of Variation 12.3 % (11.5-14.5); RDW Standard Deviation 40.5 fL (36.4-46.3); Red Blood Count 4.24 M/uL (4.20-5.40); White Blood Count 4.85 K/ul (4.8-10.8)
[2024-01-18 06:52] LABS: BUN Creatinine Ratio 16.3 (10-20); Chol HDL Ratio 3.5 (0-5); Creatinine Clr Calc Pharmacy 65.5 ml/min; Potassium 4.1 mmol/L (3.5-5.1)
[2024-01-18] MEDS: ASPIRIN 81 MG ECTAB PO SCH (07:43)
[2024-01-18] MEDS: PRAVASTATIN SOD 20 MG TAB PO SCH (07:44)
--- NOTE | 2024-01-18 09:20 | Neurology Consultation ---
Date of Consultation January 18, 2024 Assessment & Plan (1) Weakness of both legs: History of Present Illness Attending Physician: Elier Martinez MD History of Present Illness S: pt this morning feeling improved and leg strength improved also. pt not sure what happened but woke up with tongue biting and bladder incontinence. mri brain negative. CTA negative. chart reviewed. mri C spine negative. admission HPI: 68-year-old female presenting via EMS for sudden onset of incontinence, tongue biting, and fall at home. And route to ED, patient having aphasia. ED course: CBC grossly WNL with exception of monocytes 0.73; PT/INR WNL; CMP BUN/creatinine ratio 22.5, glucose 102; troponin 12.2; UA pH 8, SG 1.034, ketones present; CXR no acute process; shoulder x-ray (right) no evidence of acute osseous injury; head CT no acute intracranial hemorrhage, evidence of acute territorial infarct, or acute intracranial disease process, no occlusion, hemodynamically significant stenosis, or dissection of the major cervical arteries; cervical spine CT no acute cervical spine fracture or subluxation; lumbar spine CT no evidence of acute bony injury; head CTA unremarkable CTA of the head; neck CTA no acute intracranial hemorrhage, evidence of acute territorial infarct, or acute intracranial disease process, no occlusion hemodynamically significant stenosis, or dissection of major cervical arteries (assessment of stenosis based on NASCET criteria); brain MRI no acute intracranial abnormality, no abnormal enhancement, involutional changes with suggestion of mild chronic microvascular ischemic disease; thoracic spine MRI limited exam without evidence of cord compression, significant neuroforaminal narrowing or ligamentous injury; lumbar spine MRI motion degraded exam with discogenic degeneration, no high-grade central canal or foraminal narrowing, no acute fracture; pending cervical spine MRI; EKG NSR with sinus arrhythmia, low voltage QRS, poor R wave progression, rate 75 bpm, QTc 413.; Provided with Hi in ED. Patient 68-year-old female PMHx of having 1 kidney (donated second), dyslipidemia, and insomnia who presents for neurological deficits. Multiple family members in room at time of visit, helped provide a history. Patient awoke at 0400 the day of arrival noted to be incontinent of urine, and possibly bit her tongue. Got out of bed, weakness in bilateral legs and fell into a bookcase, striking her right shoulder. Pt states that she does not believe that she lost consciousness, however she remained on the ground for probably 20 minutes before she was able to get back up. Since then she has had ongoing worsening weakness bilateral lower extremities. States that it did not progress in any specific direction but that she just had worsening weakness that is not improving. Additional pain that it is in her right eyeball rather than behind the eye, reporting no headaches or pain with moving her eyes. Having mild blurring of vision right eye only, resolved slightly when putting glasses on. In terms of additional symptoms, patient denies chest pain, shortness of breath, palpitations, headache, fever/chills, abdominal pain, N/V/D/C, dysuria, numbness and tingling of upper extremities, known syncopal episodes, or abnormalities in mood. Patient states that this is not happened before. Did not take a.m. medications. Of note, patient is an avid hiker, and is outdoors at least weekly if not more. 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 No known tick bites, but states that it is possible she had been bit by a tick as she did not know the last time. No history of seizures. No recent sexual activity or concerns for STDs. No illicit drug use, or alcohol use. Daughter was able to discuss with me separately that she has noted decreases and the patient's memory from her baseline. States that the patient will be told a story that does not involve her, days later she will retell the story as if she had had it happen to her. Additionally notes that the patient does not recall things that are told to her within the same day, and often times lead to be told on multiple events the same information. History of psychiatric disorders and the patient's mother, per daughter. Allergies Allergy/AdvReac Type Severity Reaction Status Date / Time No Known Allergies Allergy Verified 01/17/24 10:25 Home Medications Medication Instructions Recorded Confirmed Type coenzyme Q10 100 mg capsule 100 mg PO DAILY 01/17/24 01/17/24 History (CoQ-10) ezetimibe 10 mg tablet (Zetia) 10 mg PO HS 01/17/24 01/17/24 History hydroxyzine pamoate 25 mg capsule 25 mg PO HS PRN Insomnia #90 caps 01/17/24 Rx (Vistaril) pravastatin 20 mg tablet 20 mg PO QAM 01/17/24 01/17/24 History Patient History Medical History Hx of one miscarriage Surgical History H/O tooth extraction History of oral surgery H/O kidney donation S/P dilatation and curettage x 2 Family History Mother Bipolar disorder Cardiac disorder Depression Diabetes Gallbladder disease Myocardial infarction Hypertension Heart disease Father Cardiac disorder Diabetes Hypertension Myocardial infarction Heart disease Sister Cardiac disorder Myocardial infarction Brother Diabetes Hypertension Stroke Denies family history of Ovarian cancer Prostate cancer Breast cancer Colorectal cancer Social History Smoking Status: Never smoker Age Started Using Tobacco: 15; Age Quit Using Tobacco: 22; packs per day: 0.5; Second Hand Exposure: No; Do You Dip or Chew Tobacco: No; Hx Alcohol Use: No Hx Substance Use: No Preferred Language: Palestinian Communication Ability: Effective Visual Impairment: No Limitations Hearing Ability: Normal Peanut Picker Required: No Beliefs That Will Affect Care: None marital status: / Current Living Situation: Alone current occupational status: retired 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 Occasionally eats chicken caffeine: Yes (two cups coffee/day ) during the past year weight has: remained stable Dental Care, Regularly: Yes Physical Activity Frequency: Daily Seatbelt Use: always Sunscreen Use: Yes Assistive Devices: None Exam (Neuro) Physical Exam: HEENT: normocephalic grossly Neuro: Mental: AOx4, fluent speech, normal comprehension, no apraxia, no L/R confusion, no neglect CN: PERRL, Full EOM, symmetric face, midline T/U/P, grossly full ROM neck Motor: No abnormal movements, normal tone, 5/5 t/o bilaterally upper limbs. 4+/5 b/l lower ext t/o. Sens: intact to touch b/l grossly Coord: intact FNT b/l DTR: 1+ sym b/l Gait: pt states she was able to walk without assistance this morning to bathroom. Impression:68 yo female marlod lauren, with unclear seizure like event with improving leg weakness. mri brain and spine normal. pt could had nocturnal seizure event and having prolonged Allen's paralysis, this can last up to 36 hrs sometimes. All her imaging is reassuring and clinically improving. Recommendations: physical therapy consult to assist with walking and leg strength. would benefit from outpt physical therapy also. no need for AED at this point as it was one time event. routine outpt EEG and neurology follow up evaluation seizure precaution. call again if new question. Chart reviewed I have spent more than 50% educating patient about potential diagnosis and neurological evaluation and coordinating care with patient's treatment team. Total time spent (including chart review and coordination of care): 60 min (this includes chart review). Results & Data Vital Signs (Past 12 Hours) Vital Signs Temp Pulse Pulse Resp BP Pulse Ox O2 Del Method 01/18/24 07:36 37.2 C 58 L 20 131/69 95 Room Air 01/18/24 03:44 36.5 C 52 L 18 109/66 97 Room Air 01/17/24 23:05 36.8 C 60 16 122/73 94 Room Air 01/17/24 21:44 60 PG Care Time/CCT Total # of Minutes Spent Total Time Spent with Patient: Total time spent is greater than 50% in coordination of care (as documented) at patient's floor/unit and/or counseling patient: Coding Level of Care Code 94053 IN/OBS CONSULT LVL 4,60M Diagnoses Weakness of both legs R29.898
[2024-01-18 09:39] LABS: Estimated Average Glucose 111 mg/dl; Hemoglobin A1C 5.5 % (4.5-5.6)
--- NOTE | 2024-01-18 12:12 | Hospitalist Progress Note ---
Date of Service January 18, 2024 Assessment & Plan (1) Allen's paralysis: (2) Dyslipidemia: (3) Weakness of both legs: (4) Acquired solitary kidney: Plan 68-year-old female with past medical history of single kidney (donated second kidney to now ), dyslipidemia and insomnia who presents via EMS for sudden onset of incontinence, tongue biting and fall at home resulting in injury to her right shoulder with weakness in bilateral lower legs. 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 CT head, CTA of the head and neck were unremarkable CT cervical and lumbar spine without any acute bony injury MRI of the brain without any acute intracranial abnormality MRI of the lumbar spine without high-grade central canal or foraminal narrowing, no acute fracture MRI of the thoracic spine without evidence of cord compression or significant neuroforaminal narrowing or ligamentous injury MRI of the cervical spine showed degenerative changes, reduction of the C5-C6 disc height, mild posterior disc bulging causing mild spinal canal and bilateral neural foraminal stenosis Patient was seen by neurology who reviewed all her images Neurology has recommended physical therapy to assist with walking and explaining and would benefit from outpatient physical therapy as well. As per neurology no need for AED at this point as it was a one-time event. Neurology has recommended routine outpatient EEG and neurology follow-up evaluation and seizure precaution A1c is 5.5 B12 is 897 TSH is 2.715 Tickborne panel sent on admission: Results pending Discussed with neurologist Dr. Baxter via secure chat: No driving and patient will need follow-up with neurology on discharge Patient advised that she cannot drive PT/OT consult #Dyslipidemia Triglycerides are 83 LDL is 140 HDL is 62 Total cholesterol is 219 Continue pravastatin and Zetia Outpatient follow-up with PCP #Insomnia Continue melatonin PRN CODE STATUS: Full code DVT prophylaxis: Lovenox 40 mg subcutaneous daily Discharge planning based on PT/OT recommendations likely in the next 24 to 48 hours Care plan discussed with patient, nursing staff Admission and Anticipated Discharge Date Admission Date: January 17, 2024 Subjective Patient seen and examined H&P reviewed Labs reviewed Telemetry reviewed Radiology reviewed Currently denies any headache, dizziness, lightheadedness, chest pain, shortness of breath, nausea, vomiting, diarrhea, abdominal pain. Weakness in her legs is slowly improving. She denies any urinary symptoms, fever, chills, cough Social history: Lives by herself. Independent of ADLs. Denies tobacco use or alcohol use. is : She donated her kidney to her who then 2 years later after kidney donation Physical Exam Physical Exam: General: No acute distress Psych: Awake and alert, oriented x 3 HEENT: Anicteric sclera, moist oral mucosa CVS: Regular rate and rhythm Lungs: Bilateral air entry, no wheezing noted Abdomen: Soft, nontender, no rebound, no guarding Ext: No lower extremity edema, no calf tenderness Neuro: No dysarthria, no facial droop, strength is 5 out of 5 in upper extremities and 3 out of 5 in bilateral lower extremities Results & Data Results & Data Vital Signs (Past 12 Hours) Vital Signs Temp Pulse Resp BP Pulse Ox O2 Del Method 01/18/24 10:43 36.6 C 74 18 115/65 97 Room Air 01/18/24 07:36 37.2 C 58 L 20 131/69 95 Room Air 01/18/24 03:44 36.5 C 52 L 18 109/66 97 Room Air Laboratory Results Laboratory Results - last 24 hr 01/17/24 01/17/24 01/18/24 08:55 15:46 06:06 WBC 4.85 RBC 4.24 Hgb 13.0 Hct 38.3 MCV 90.3 MCH 30.7 MCHC 33.9 RDW Std Deviation 40.5 RDW Coeff of Nam 12.3 Plt Count 258 MPV 9.7 Sodium 139 Potassium 4.1 Chloride 106 Carbon Dioxide 27 Anion Gap 6 BUN 13 Creatinine 0.80 Est Cr Clr Drug Dosing 65.5 eGFR 80.21 BUN/Creatinine Ratio 16.3 Glucose 101 H Estimat Average Glucose 111 Hemoglobin A1c 5.5 Calcium 9.0 Triglycerides 83 Cholesterol 219 H LDL Cholesterol, Calc 140 VLDL Cholesterol, Calc 17 HDL Cholesterol 62 Cholesterol/HDL Ratio 3.5 Vitamin B12 897 TSH 2.715 Anaplasma Smear See Comment A. phagocytophilum DNA Pending Babesia Smear See Comment Babesia microti DNA PCR Pending Lyme Disease Screen Negative Ehrlichia DNA (PCR) Pending Q Fever Phase I IgG Ab Pending Q Fever Phase I IgM Ab Pending Q Fever Phase II IgG Ab Pending Q Fever Phase II IgM Ab Pending Rickettsia IgG Ab Pending Rickettsia IgM Ab Pending Typhus Fever IgG Ab Pending Typhus Fever IgM Ab Pending Diagnostic Findings Cervical Spine CT 01/17/24 08:58 CT cervical spine wo con CLINICAL HISTORY: 68 years-old Female with fall. Acute neck pain status post fall COMPARISON: CTA neck of same day TECHNIQUE: Multiple axial CT images of the cervical spine were obtained without contrast. A dose lowering technique was utilized adhering to the principles of ALARA. FINDINGS: There is straightening of the normal cervical lordosis. Moderate to severe disc space narrowing at C5-C6 with circumferential disc osteophyte complex. Multilevel facet arthrosis is moderate to severe at several levels on the left and also on the right at C3-C4. 3 mm anterolisthesis C3 on C4 is likely secondary to the aforementioned chronic facet arthrosis. C1-C2 articulation is preserved. The cervical soft tissues appear unremarkable. The visualized lung apices appear clear. IMPRESSION: No acute cervical spine fracture or subluxation. ACT 112: Negative or not required by law. The above report was generated using voice recognition software. It may contain grammatical, syntax or spelling errors. Electronically signed by: Howard Alexander M.D. 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 Coarsened interstitium is likely chronic. No pneumothorax, pleural effusion or airspace consolidation. Mild upper thoracic levoscoliosis. The bones appear grossly intact. IMPRESSION: No acute process. ACT 112: Negative or not required by law. The above report was generated using voice recognition software. It may contain grammatical, syntax or spelling errors. Electronically signed by: Howard Alexander M.D. 01/17/2024 10:[address] 01/17/24 08:58 CT angio neck with con, CT head/brain wo con CLINICAL HISTORY: neuro deficit, acute stroke suspected TECHNIQUE: Contiguous axial CT images of the head were acquired from the base of the skull to the vertex without intravenous contrast administration. CT angiography of the neck was performed following intravenous administration of iodinated contrast. Coronal and sagittal MIPS were obtained from the axial data set and were submitted for review. Automated dose lowering techniques and/or adjustment according to patient size were utilized for this examination. All measurements were calculated based on NASCET criteria. CT DOSE: 2992.66 mGy.cm Comparison: None available at the time of this dictation. FINDINGS: CT head: There is no acute intracranial hemorrhage or evidence of acute territ orial infarction. No shift of the midline structures, mass effect, or extra- axial abnormalities are shown. Lungs and soft tissues are unremarkable. CTA Neck: A 3 vessel aortic arch is shown. There is no significant atherosclerotic plaque in the aortic arch or the origins of the innominate, left common carotid, and left subclavian arteries. The common carotid, external carotid, cervical segments of the internal carotid arteries, and the cervical segments of the vertebral arteries are patent without hemodynamically significant stenosis. The left vertebral artery is dominant. IMPRESSION: 1. No acute intracranial hemorrhage, evidence of acute territorial infarction, or other acute intracranial disease process. 2. No occlusion, hemodynamically significant stenosis, or dissection in the major cervical arteries. Assessment of stenosis of the internal carotid arteries is based on NASCET criteria. ACT 112: Negative or not required by law. Electronically signed by: Sami Tejada M.D. 01/17/2024 9:46 AM Head CTA 01/17/24 08:58 CT angio head w con CLINICAL HISTORY: 68 years-old Female with neuro deficit, acute stroke suspected. Acute stroke like symptoms COMPARISON STUDY: Head CT same day, brain MRI 05/01/2023 TECHNIQUE: Unenhanced axial CT scan of the brain is performed. Subsequently, following the IV administration of 112 cc of Optiray, CT angiogram of the brain was performed from the skull base to the vertex. Images are reviewed in the axial, sagittal, and coronal planes. 3-D MIPS images are created and assessed. IV contrast was administered without complication. All measurements were obtained according to NASCET criteria. A dose lowering technique was utilized adhering to the principles of ALARA. FINDINGS: CT BRAIN: Dictated separately. CT ANGIOGRAM OF THE BRAIN: The imaged bilateral internal carotid arteries are patent. The bilateral anterior and middle cerebral arteries are also patent. The vertebrobasilar system and posterior cerebral arteries are widely patent. origin of the right posterior cerebral artery. There is no aneurysm, high-grade stenosis, or proximal branch occlusion identified. Dural sinuses appear patent. IMPRESSION: Unremarkable CTA of the head. ACT 112: Negative or not required by law. The above report was generated using voice recognition software. It may contain grammatical, syntax or spelling errors. Electronically signed by: Howard Alexander M.D. 01/17/2024 9:[address] 01/17/24 08:58 CT lumbar spine wo con CLINICAL HISTORY: fall, leg weakness TECHNIQUE: Multidetector row helical CT of the lumbar spine was performed without administration of intravenous contrast. Coronal and sagittal reformatio ns were obtained. Automated dose lowering techniques and/or adjustment according to patient size were utilized for this exam. Comparison: None available at the time of this dictation. FINDINGS: For counting purposes, the last complete intervertebral disc space is considered L5-S1. No acute fractures are identified. Vertebral body heights and disk spaces are well maintained. Vertebral body alignment is within normal limits. A hiatal hernia is seen. IMPRESSION: No evidence of acute bony injury. ACT 112: Negative or not required by law. Electronically signed by: Sami Tejada M.D. 01/17/2024 9:47 AM Neck CTA 01/17/24 08:58 CT angio neck with con, CT head/brain wo con CLINICAL HISTORY: neuro deficit, acute stroke suspected TECHNIQUE: Contiguous axial CT images of the head were acquired from the base of the skull to the vertex without intravenous contrast administration. CT angiography of the neck was performed following intravenous administration of iodinated contrast. Coronal and sagittal MIPS were obtained from the axial data set and were submitted for review. Automated dose lowering techniques and/or adjustment according to patient size were utilized for this examination. All measurements were calculated based on NASCET criteria. CT DOSE: 2992.66 mGy.cm Comparison: None available at the time of this dictation. FINDINGS: CT head: There is no acute intracranial hemorrhage or evidence of acute territorial infarction. No shift of the midline structures, mass effect, or extra-axial abnormalities are shown. Lungs and soft tissues are unremarkable. CTA Neck: A 3 vessel aortic arch is shown. There is no significant atherosclerotic plaque in the aortic arch or the origins of the innominate, left common carotid, and left subclavian arteries. The common carotid, external carotid, cervical segments of the internal carotid arteries, and the cervical segments of the vertebral arteries are patent without hemodynamically significant stenosis. The left vertebral artery is dominant. IMPRESSION: 1. No acute intracranial hemorrhage, evidence of acute territorial infarction, or other acute intracranial disease process. 2. No occlusion, hemodynamically significant stenosis, or dissection in the major cervical arteries. Assessment of stenosis of the internal carotid arteries is based on NASCET criteria. ACT 112: Negative or not required by law. Electronically signed by: Sami Tejada M.D. 01/17/2024 9:46 AM Shoulder X-Ray 01/17/24 08:58 XR shoulder RT min 2V routine CLINICAL HISTORY: fall TECHNIQUE: 3 views of the right shoulder were obtained. Comparison: None available at the time of this dictation. FINDINGS: There is no evidence of an acute fracture. Joint spaces are well-preserved. The overlying soft tissues are unremarkable. The visualized portions of the lungs are clear. IMPRESSION: No evidence of acute osseous injury. ACT 112: Negative or not required by law. Electronically signed by: Sami Tejada M.D. 01/17/2024 10:05 AM Lumbar Spine MRI 01/17/24 09:38 MR lumbar spine wo con CLINICAL HISTORY: 68 years-old Female with leg weakness, incontinence. Acute low back pain COMPARISON: Prior lumbar spine of same day TECHNIQUE: Multiplanar, multi sequence MRI of the lumbar spine was performed without intravenous contrast. FINDINGS: Motion degraded exam. Conus medullaris terminates at L1. Unremarkable appearance of the imaged thoracic spinal cord. Minimal marrow edema in the right L5, likely degenerative. No definite acute fracture, subluxation or endplate erosion. No paraspinal or epidural fluid collections. Normal bone marrow signal within the imaged sacrum. Mild multilevel intervertebral disc space narrowing, spondylitic spurring and facet arthrosis. T12-L1: No central canal or neural foraminal stenosis. L1-L2: No central canal or neural foraminal stenosis. L2-L3: Mild to moderate intervertebral disc space narrowing and spondylotic spurring with small circumferential annular disc bulge. Ligamentum flavum thickening with mild to moderate facet arthrosis. Central canal is patent. Minimal inferior bilateral foraminal narrowing. L3-L4: Mild to moderate intervertebral disc space narrowing and spondylotic spurring with small circumferential annular disc bulge. Ligamentum flavum thickening with mild to moderate facet arthrosis. Central canal is patent. Mild bilateral foraminal narrowing. L4-L5: Mild intervertebral disc space narrowing with tiny posterior annular disc bulge. Ligamentum flavum thickening with moderate facet arthrosis. Minimal right foraminal narrowing. The central canal and left neural foramen are patent. L5-S1: Tiny posterior annular disc bulge. Ligamentum thickening with moderate facet arthrosis. No central canal or foraminal narrowing. IMPRESSION: 1. Motion degraded exam with discogenic degeneration as above. 2. No high-grade central canal or foraminal narrowing. 3. No acute fracture. ACT 112: Negative or not required by law. The above report was generated using voice recognition software. It may contain grammatical, syntax or spelling errors. Electronically signed by: Howard Alexander M.D. 01/17/2024 12:24 PM Brain MRI 01/17/24 10:09 MR brain wo/w con HISTORY: 68 years-old Female ?seizure, leg weakness, expressive aphasia acute seizure-like activity COMPARISON: Brain MRI 05/01/2023, head CT 01/17/2024 TECHNIQUE: Multiplanar multisequence MRI of the brain was obtained with and without IV contrast FINDINGS: No restricted diffusion to suggest acute or subacute infarct. Midline structures appear unremarkable. No acute intracranial hemorrhage, midline shift, abnormal extra axial collection, hydrocephalus or intra-axial mass. Cerebral venous sinuses and major arterial flow voids appear patent. Skull, orbits and soft tissues are unremarkable. The mesial temporal lobes appear normal. No evidence of mesial temporal sclerosis. No evidence of cortical dysplasia or calderon matter heterotopia. Involutional changes with mild scattered subcentimeter T2/FLAIR hyperintense foci throughout the white matter, likely chronic microvascular ischemic disease. Findings are unchanged from prior. No abnormal enhancement. IMPRESSION: 1. No acute intracranial abnormality. 2. No abnormal enhancement. 3. Involutional changes with suggestion of mild chronic microvascular ischemic disease. ACT 112: Negative or not required by law. The above report was generated using voice recognition software. It may contain grammatical, syntax or spelling errors. Electronically signed by: Howard Alexander M.D. 01/17/2024 12:59 PM Thoracic Spine MRI 01/17/24 11:30 MR thoracic spine wo con CLINICAL HISTORY: leg weakness TECHNIQUE: Multiplanar sequences through the thoracic spine were obtained, without intravenous contrast. Comparison: None available at the time of this dictation. FINDINGS: Exam is limited by patient motion. The alignment is anatomical. Minimal disc disease is seen without significant canal or neuroforaminal stenosis. The spinal canal and neural foramina are patent. The spinal ligaments are intact, without evidence of disruption or abnormal signal intensity. The spinal cord is normal in signal intensity and there is no evidence of cord contusion. There is no evidence of an extradural, intradural, extramedullary or intramedullary lesion. Visualized soft tissues are normal. IMPRESSION: Limited exam without evidence of cord compression, significant neuroforaminal narrowing or ligamentous injury. ACT 112: Negative or not required by law. Electronically signed by: Sami Tejada M.D. 01/17/2024 1:11 PM Cervical Spine MRI 01/18/24 00:01 EXAM: MR cervical spine wo con CLINICAL HISTORY: Possible seizures the patient reportedly woke up incontinent around 4 AM and had associated difficulty with speech for EMS Bilateral lower extremity weakness may be more prominent on the right side CT''s all negative. patient answered questions appropriately. walked into MRI scan room w/o difficulty. repeated scans due to patient motion. MRI brain, thoracic and lumbar done on 01/16. CT cervical spine 01/16. CT head 01/16. room 229-2 225 images TECHNIQUE: Multisequential and multiplanar images of the cervical spine were submitted for review without contrast. COMPARISON: None. FINDINGS: Straightening of the cervical lordosis. Alignment of the spine is maintained. Mild marrow edema is noted involving the inferior endplate of C5 and superior endplate of C6 vertebra. Most of the discs show degenerative changes. Reduction of the C5-C6 disc height is noted. The cord is normal in caliber and signal. There is no cerebellar ectopia. The visualized paraspinal soft tissues are grossly unremarkable. C2-C3: No disc herniation. No central canal stenosis or neuroforaminal narrowing. C3-C4: No disc herniation. No central canal stenosis or neuroforaminal narrowing. C4-C5: No disc herniation. No central canal stenosis or neuroforaminal narrowing. C5-C6: Mild disc bulge is noted causing mild spinal canal and bilateral neural foraminal stenosis. C6-C7: No disc herniation. No central canal stenosis or neuroforaminal narrowing. C7-T1: No disc herniation. No central canal stenosis or neuroforaminal narrowing. IMPRESSION: 1. Degenerative changes. 2. Mild marrow edema is noted involving the inferior endplate of C5 and superior endplate of C6 vertebra, likely degenerative. 3. Reduction of the C5-C6 disc height is noted. Mild posterior disc bulge is noted at this level causing mild spinal canal and bilateral neural foraminal stenosis. Electronically signed by Eliseo Biggs 01-18-2024 02:46 AM PG Care Time/CCT Total # of Minutes Spent Total Time Spent with Patient: Total time spent is greater than 50% in coordination of care (as documented) at patient's floor/unit and/or counseling patient: Coding Level of Care Code 00502 SUB INP/OBS CARE 3/50MIN Diagnoses Allen's paralysis G83.84 Dyslipidemia E78.5 Weakness of both legs R29.898 Acquired solitary kidney Z90.5
[2024-01-19 06:42] LABS: Hematocrit (blood only) 39.7 % (37.0-47.0); Hemoglobin 13.2 g/dl (12.0-16.0); Mean Corpuscular Hemoglobin 30.2 pg (25.0-34.0); Mean Corpuscular Hgb Conc 33.2 g/dL (32.0-36.0); Mean Corpuscular Volume 90.8 fL (80.0-100.0); Mean Platelet Volume 10.1 fL (9.4-12.4); Platelet Count 249 K/uL (130-400); RDW Standard Deviation 40.1 fL (36.4-46.3); Red Blood Count 4.37 M/uL (4.20-5.40); White Blood Count 4.74 K/ul (4.8-10.8)
[2024-01-19 07:06] LABS: BUN Creatinine Ratio 23.4 (10-20); Calcium 9.1 mg/dl (8.6-10.3); Magnesium 2.2 mg/dl (1.7-2.4); Potassium 4.1 mmol/L (3.5-5.1)
--- NOTE | 2024-01-19 10:16 | Neurology Progress Note ---
Date of Service January 19, 2024 Assessment & Plan (1) Allen's paralysis: Admission and Anticipated Discharge Date Admission Date: January 17, 2024 Subjective pt doing well. no weakness. Results & Data Vital Signs (Past 12 Hours) Vital Signs Temp Pulse Pulse Resp BP Pulse Ox O2 Del Method 01/19/24 07:25 36.5 C 63 18 158/92 H 96 Room Air 01/19/24 07:00 50 L 01/19/24 02:40 36.8 C 56 L 18 150/75 H 98 Room Air 01/19/24 00:15 Room Air 01/18/24 23:00 59 L 01/18/24 23:00 36.6 C 55 L 18 117/57 L 95 Room Air Exam (Neuro) Physical Exam: Neuro: Mental: AOx4, fluent speech, normal comprehension, no apraxia, no neglect CN: PERRL, Full EOM, symmetric face, Motor: No abnormal movements, 5/5 t/o bilaterally Coord: intact grossly Gait: intact grossly Impression:68 yo female with now resolved symptoms. Likely had Allen's paralysis, now resolved. Recommendations: no new recommendations. ok for discharge. outpt work up and follow up Chart reviewed I have spent more than 50% educating patient about potential diagnosis and neurological evaluation and coordinating care with patient's treatment team. Total time spent (including chart review and coordination of care): 35 min (this includes chart review). PG Care Time/CCT Total # of Minutes Spent Total Time Spent with Patient: Total time spent is greater than 50% in coordination of care (as documented) at patient's floor/unit and/or counseling patient: Coding Level of Care Code 65729 SUB INP/OBS CARE 2/35MIN Diagnoses Allen's paralysis G83.84
[2024-01-19 12:03] VITALS: BP 149/83; PULSE 74; RESP 20; TEMP 97.5; O2SAT 98
--- NOTE | 2024-01-19 14:35 | Discharge Summary ---
Discharge Summary Date of Service January 19, 2024 Principal Dx & Hospital Course #1 = Principal Diagnosis (1) Nocturnal seizure: (2) Allen's paralysis: (3) Dyslipidemia: (4) Weakness of both legs: (5) Acquired solitary kidney: Plan 68-year-old female with past medical history of single kidney (donated second kidney to now ), dyslipidemia and insomnia who presents via EMS for sudden onset of incontinence, tongue biting and fall at home resulting in injury to her right shoulder with weakness in bilateral lower legs. 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 CT head, CTA of the head and neck were unremarkable CT cervical and lumbar spine without any acute bony injury MRI of the brain without any acute intracranial abnormality MRI of the lumbar spine without high-grade central canal or foraminal narrowing, no acute fracture MRI of the thoracic spine without evidence of cord compression or significant neuroforaminal narrowing or ligamentous injury MRI of the cervical spine showed degenerative changes, reduction of the C5-C6 disc height, mild posterior disc bulging causing mild spinal canal and bilateral neural foraminal stenosis Patient was seen by neurology who reviewed all her images Neurology has recommended physical therapy to assist with walking and explaining and would benefit from outpatient physical therapy as well. As per neurology no need for AED at this point as it was a one-time event. Neurology has recommended routine outpatient EEG and neurology follow-up evaluation A1c is 5.5 B12 is 897 TSH is 2.715 Tickborne panel sent on admission: Results pending Discussed with neurologist Dr. Baxter via secure chat on 01/18/2024: No driving and patient will need follow-up with neurology on discharge Patient advised that she cannot drive: She verbalized understanding instructions PT OT saw the patient and have cleared her for discharge She was seen by neurology today and cleared for discharge #Dyslipidemia Triglycerides are 83 LDL is 140 HDL is 62 Total cholesterol is 219 Continue pravastatin and Zetia Outpatient follow-up with PCP #Insomnia Continue hydroxyzine as needed at bedtime Outpatient follow-up with PCP Patient seen and examined today. She is ambulating without any issues. I have gone over the discharge care plan, medications, follow-up and no driving instructions with the patient in great detail and answered all her questions. Patient verbalized understanding of my instructions and also written instructions provided to patient. This discharge to greater than 30 minutes to coordinate Notes For Next Care Provider Following blood test results are still pending:Tickborne illness panel: Anaplasma, Babesia, Ehrlichia and Rickettsia PCR. Please follow-up with your PCP within 1 week to get results of these pending tests Admission HPI Per Admitting Provider 68-year-old female presenting via EMS for sudden onset of incontinence, tongue biting, and fall at home. And route to ED, patient having aphasia. ED course: CBC grossly WNL with exception of monocytes 0.73; PT/INR WNL; CMP BUN/creatinine ratio 22.5, glucose 102; troponin 12.2; UA pH 8, SG 1.034, ketones present; CXR no acute process; shoulder x-ray (right) no evidence of acute osseous injury; head CT no acute intracranial hemorrhage, evidence of acute territorial infarct, or acute intracranial disease process, no occlusion, hemodynamically significant stenosis, or dissection of the major cervical arteries; cervical spine CT no acute cervical spine fracture or subluxation; lumbar spine CT no evidence of acute bony injury; head CTA unremarkable CTA of the head; neck CTA no acute intracranial hemorrhage, evidence of acute territorial infarct, or acute intracranial disease process, no occlusion hemodynamically significant stenosis, or dissection of major cervical arteries (assessment of stenosis based on NASCET criteria); brain MRI no acute intracranial abnormality, no abnormal enhancement, involutional changes with suggestion of mild chronic microvascular ischemic disease; thoracic spine MRI limited exam without evidence of cord compression, significant neuroforaminal narrowing or ligamentous injury; lumbar spine MRI motion degraded exam with discogenic degeneration, no high-grade central canal or foraminal narrowing, no acute fracture; pending cervical spine MRI; EKG NSR with sinus arrhythmia, low voltage QRS, poor R wave progression, rate 75 bpm, QTc 413.; Provided with Hi in ED. Patient 68-year-old female PMHx of having 1 kidney (donated second), dyslipidemia, and insomnia who presents for neurological deficits. Multiple family members in room at time of visit, helped provide a history. Patient awoke at 0400 the day of arrival noted to be incontinent of urine, and possibly bit her tongue. Got out of bed, weakness in bilateral legs and fell into a bookcase, striking her right shoulder. Pt states that she does not believe that she lost consciousness, however she remained on the ground for probably 20 mi nutes before she was able to get back up. Since then she has had ongoing worsening weakness bilateral lower extremities. States that it did not progress in any specific direction but that she just had worsening weakness that is not improving. Additional pain that it is in her right eyeball rather than behind the eye, reporting no headaches or pain with moving her eyes. Having mild blurring of vision right eye only, resolved slightly when putting glasses on. In terms of additional symptoms, patient denies chest pain, shortness of breath, palpitations, headache, fever/chills, abdominal pain, N/V/D/C, dysuria, numbness and tingling of upper extremities, known syncopal episodes, or abnormalities in mood. Patient states that this is not happened before. Did not take a.m. medications. Of note, patient is an avid hiker, and is outdoors at least weekly if not more. 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 No known tick bites, but states that it is possible she had been bit by a tick as she did not know the last time. No history of seizures. No recent sexual activity or concerns for STDs. No illicit drug use, or alcohol use. Daughter was able to discuss with me separately that she has noted decreases and the patient's memory from her baseline. States that the patient will be told a story that does not involve her, days later she will retell the story as if she had had it happen to her. Additionally notes that the patient does not recall things that are told to her within the same day, and often times lead to be told on multiple events the same information. History of psychiatric disorders and the patient's mother, per daughter. Discharge Exam General: No acute distress Psych: Awake and alert, oriented x 3 HEENT: Anicteric sclera, moist oral mucosa CVS: Regular rate and rhythm Lungs: Bilateral air entry, no wheezing noted Abdomen: Soft, nontender, no rebound, no guarding Ext: No lower extremity edema, no calf tenderness Neuro: No dysarthria, no facial droop, strength is 5 out of 5 in all 4 extremities. Gait normal Discharge Plan Discharge Items Patient Disposition: Home - Self-Care Reason For Visit: BILATERAL LEG WEAKNESS Discharge Diagnosis: #Nocturnal seizure with Allen's paralysis #Dyslipidemia #Insomnia Activity: As commented below Activity Comment: As tolerated, no driving until cleared by neurology on follow- up Bathing Comment: Please do not take a bath in the bathtub or use swimming pool Driving/Machine Use: No driving until cleared by neurology on follow-up Non-emergency contact: Primary Care Provider Call non-emergency contact if: you have any medication questions, your symptoms worsen and you have a fever Follow-up/Referrals: Pee Haines MD [Physician] - Julissa Carr DO [Primary Care Provider] - 01/28/24 9:20 am (Hospital follow up scheduled January 27 at 9:[address] Carr) Diet: Heart Healthy Addtl Attending Provider Instructions: DISCHARGE INSTRUCTION TO PATIENT/FAMILY: Follow-up with your primary care provider within 1 week regarding: Posthospital discharge, medication review, medication refills and follow-up on all your medical problems, pending test results Please take all your discharge medications, discharge information and discharge instructions to all your doctors appointments. Avoid all NSAIDs including ibuprofen, Motrin, Advil, Aleve, naproxen, meloxicam, Toradol, diclofenac Following blood test results are still pending:Tickborne illness panel: Anaplasma, Babesia, Ehrlichia and Rickettsia PCR. Please follow-up with your PCP within 1 week to get results of these pending tests Neurologist saw you during hospital stay and you were diagnosed with a single episode of nocturnal seizure with Allen's paralysis: Please do not drive until you are cleared by neurology as outpatient to drive. Please follow-up with neurologist as outpatient in 1 to 2 weeks time for outpatient EEG and any further investigations Do not take baths, go swimming, use heavy machinery or drive until you are cleared by neurology. You may shower. Labs through PCP in 1 to 2 weeks: CBC, CMP, MG, VITAMIN D Pending Studies at Discharge: Yes (Tickborne illness panel: Anaplasma, Babesia, Ehrlichia and Rickettsia PCR) Studies:: Tickborne illness panel: Anaplasma, Babesia, Ehrlichia and Rickettsia PCR Stand-Alone Forms: My [employer], Smoking Cessation Medications and DC Order Prescriptions: Continued hydroxyzine pamoate [Vistaril] 25 mg capsule 25 mg PO HS PRN (Reason: Insomnia) Qty: 90 2RF pravastatin 20 mg tablet 20 mg PO QAM ezetimibe [Zetia] 10 mg tablet 10 mg PO HS coenzyme Q10 [CoQ-10] 100 mg Capsule 100 mg PO DAILY Discharge Orders: Discharge Order (Routine); Ordered 01/19/24 Ordered By: Jamarcus Sosa Admission Data Admit Date/Time: 01/17/24 14:43 Attending Provider: Jamarcus Sosa Admit Provider: Elier Martinez Primary Care Provider: Julissa Carr Other Providers: Pee Haines; Santiago Mayen; Aura Carreno; Sarah Parker; Caryl Peacock; Jose Baxter; Elier Martinez Other Interventions: Discharge Summary Assessment (RN) Last Done: 01/19/24 14:36 Hospital Stay Data Consultations 01/17/24 14:08 ED Decision to Admit Stat 01/17/24 14:45 Consult Neurology Routine Diagnostic Imagining Performed 01/17/24 08:58 CT angio head w con Stat CT angio neck with con Stat CT cervical spine wo con Stat CT head/brain wo con Stat CT lumbar spine wo con Stat 01/17/24 09:38 MR lumbar spine wo con Stat 01/17/24 10:09 MR brain wo/w con Stat 01/17/24 11:30 MR thoracic spine wo con Stat 01/18/24 00:01 MRI Cervical [MR cervical spine wo con] Urgent Cervical Spine CT 01/17/24 08:58 CT cervical spine wo con CLINICAL HISTORY: 68 years-old Female with fall. Acute neck pain status post fall COMPARISON: CTA neck of same day TECHNIQUE: Multiple axial CT images of the cervical spine were obtained without contrast. A dose lowering technique was utilized adhering to the principles of ALARA. FINDINGS: There is straightening of the normal cervical lordosis. Moderate to severe disc space narrowing at C5-C6 with circumferential disc osteophyte complex. Multilevel facet arthrosis is moderate to severe at several levels on the left and also on the right at C3-C4. 3 mm anterolisthesis C3 on C4 is likely secondary to the aforementioned chronic facet arthrosis. C1-C2 articulation is preserved. The cervical soft tissues appear unremarkable. The visualized lung apices appear clear. IMPRESSION: No acute cervical spine fracture or subluxation. ACT 112: Negative or not required by law. The above report was generated using voice recognition software. It may contain grammatical, syntax or spelling errors. Electronically signed by: Howard Alexander M.D. 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 Coarsened interstitium is likely chronic. No pneumothorax, pleural effusion or airspace consolidation. Mild upper thoracic levoscoliosis. The bones appear grossly intact. IMPRESSION: No acute process. ACT 112: Negative or not required by law. The above report was generated using voice recognition software. It may contain grammatical, syntax or spelling errors. Electronically signed by: Howard Alexander M.D. 01/17/2024 10:[address] 01/17/24 08:58 CT angio neck with con, CT head/brain wo con CLINICAL HISTORY: neuro deficit, acute stroke suspected TECHNIQUE: Contiguous axial CT images of the head were acquired from the base of the skull to the vertex without intravenous contrast administration. CT angiography of the neck was performed following intravenous administration of iodinated contrast. Coronal and sagittal MIPS were obtained from the axial data set and were submitted for review. Automated dose lowering techniques and/or adjustment according to patient size were utilized for this examination. All measurements were calculated based on NASCET criteria. CT DOSE: 2992.66 mGy.cm Comparison: None available at the time of this dictation. FINDINGS: CT head: There is no acute intracranial hemorrhage or evidence of acute territorial infarction. No shift of the midline structures, mass effect, or extra-axial abnormalities are shown. Lungs and soft tissues are unremarkable. CTA Neck: A 3 vessel aortic arch is shown. There is no significant atherosclerotic plaque in the aortic arch or the origins of the innominate, left common carotid, and left subclavian arteries. The common carotid, external carotid, cervical segments of the internal carotid arteries, and the cervical segments of the vertebral arteries are patent without hemodynamically signifi cant stenosis. The left vertebral artery is dominant. IMPRESSION: 1. No acute intracranial hemorrhage, evidence of acute territorial infarction, or other acute intracranial disease process. 2. No occlusion, hemodynamically significant stenosis, or dissection in the major cervical arteries. Assessment of stenosis of the internal carotid arteries is based on NASCET criteria. ACT 112: Negative or not required by law. Electronically signed by: Sami Tejada M.D. 01/17/2024 9:46 AM Head CTA 01/17/24 08:58 CT angio head w con CLINICAL HISTORY: 68 years-old Female with neuro deficit, acute stroke suspected. Acute stroke like symptoms COMPARISON STUDY: Head CT same day, brain MRI 05/01/2023 TECHNIQUE: Unenhanced axial CT scan of the brain is performed. Subsequently, following the IV administration of 112 cc of Optiray, CT angiogram of the brain was performed from the skull base to the vertex. Images are reviewed in the axial, sagittal, and coronal planes. 3-D MIPS images are created and assessed. IV contrast was administered without complication. All measurements were obtained according to NASCET criteria. A dose lowering technique was utilized adhering to the principles of ALARA. FINDINGS: CT BRAIN: Dictated separately. CT ANGIOGRAM OF THE BRAIN: The imaged bilateral internal carotid arteries are patent. The bilateral ante rior and middle cerebral arteries are also patent. The vertebrobasilar system and posterior cerebral arteries are widely patent. origin of the right posterior cerebral artery. There is no aneurysm, high-grade stenosis, or proximal branch occlusion identified. Dural sinuses appear patent. IMPRESSION: Unremarkable CTA of the head. ACT 112: Negative or not required by law. The above report was generated using voice recognition software. It may contain grammatical, syntax or spelling errors. Electronically signed by: Howard Alexander M.D. 01/17/2024 9:[address] 01/17/24 08:58 CT lumbar spine wo con CLINICAL HISTORY: fall, leg weakness TECHNIQUE: Multidetector row helical CT of the lumbar spine was performed without administration of intravenous contrast. Coronal and sagittal reformations were obtained. Automated dose lowering techniques and/or adjustment according to patient size were utilized for this exam. Comparison: None available at the time of this dictation. FINDINGS: For counting purposes, the last complete intervertebral disc space is considered L5-S1. No acute fractures are identified. Vertebral body heights and disk spaces are well maintained. Vertebral body alignment is within normal limits. A hiatal hernia is seen. IMPRESSION: No evidence of acute bony injury. ACT 112: Negative or not required by law. Electronically signed by: Sami Tejada M.D. 01/17/2024 9:47 AM Neck CTA 01/17/24 08:58 CT angio neck with con, CT head/brain wo con CLINICAL HISTORY: neuro deficit, acute stroke suspected TECHNIQUE: Contiguous axial CT images of the head were acquired from the base of the skull to the vertex without intravenous contrast administration. CT angiography of the neck was performed following intravenous administration of iodinated contrast. Coronal and sagittal MIPS were obtained from the axial data set and were submitted for review. Automated dose lowering techniques and/or adjustment according to patient size were utilized for this examination. All measurements were calculated based on NASCET criteria. CT DOSE: 2992.66 mGy.cm Comparison: None available at the time of this dictation. FINDINGS: CT head: There is no acute intracranial hemorrhage or evidence of acute territorial infarction. No shift of the midline structures, mass effect, or extra-axial abnormalities are shown. Lungs and soft tissues are unremarkable. CTA Neck: A 3 vessel aortic arch is shown. There is no significant atherosclerotic plaque in the aortic arch or the origins of the innominate, left common carotid, and left subclavian arteries. The common carotid, external carotid, cervical segments of the internal carotid arteries, and the cervical segments of the vertebral arteries are patent without hemodynamically significant stenosis. The left vertebral artery is dominant. IMPRESSION: 1. No acute intracranial hemorrhage, evidence of acute territorial infarction, or other acute intracranial disease process. 2. No occlusion, hemodynamically significant stenosis, or dissection in the major cervical arteries. Assessment of stenosis of the internal carotid arteries is based on NASCET criteria. ACT 112: Negative or not required by law. Electronically signed by: Sami Tejada M.D. 01/17/2024 9:46 AM Shoulder X-Ray 01/17/24 08:58 XR shoulder RT min 2V routine CLINICAL HISTORY: fall TECHNIQUE: 3 views of the right shoulder were obtained. Comparison: None available at the time of this dictation. FINDINGS: There is no evidence of an acute fracture. Joint spaces are well-preserved. The overlying soft tissues are unremarkable. The visualized portions of the lungs are clear. IMPRESSION: No evidence of acute osseous injury. ACT 112: Negative or not required by law. Electronically signed by: Sami Tejada M.D. 01/17/2024 10:05 AM Lumbar Spine MRI 01/17/24 09:38 MR lumbar spine wo con CLINICAL HISTORY: 68 years-old Female with leg weakness, incontinence. Acute low back pain COMPARISON: Prior lumbar spine of same day TECHNIQUE: Multiplanar, multi sequence MRI of the lumbar spine was performed without intravenous contrast. FINDINGS: Motion degraded exam. Conus medullaris terminates at L1. Unremarkable appearance of the imaged thoracic spinal cord. Minimal marrow edema in the right L5, likely degenerative. No definite acute fracture, subluxation or endplate erosion. No paraspinal or epidural fluid collections. Normal bone marrow signal within the imaged sacrum. Mild multilevel intervertebral disc space narrowing, spondylitic spurring and facet arthrosis. T12-L1: No central canal or neural foraminal stenosis. L1-L2: No central canal or neural foraminal stenosis. L2-L3: Mild to moderate intervertebral disc space narrowing and spondylotic spurring with small circumferential annular disc bulge. Ligamentum flavum thickening with mild to moderate facet arthrosis. Central canal is patent. Minimal inferior bilateral foraminal narrowing. L3-L4: Mild to moderate intervertebral disc space narrowing and spondylotic spurring with small circumferential annular disc bulge. Ligamentum flavum thickening with mild to moderate facet arthrosis. Central canal is patent. Mild bilateral foraminal narrowing. L4-L5: Mild intervertebral disc space narrowing with tiny posterior annular disc bulge. Ligamentum flavum thickening with moderate facet arthrosis. Minimal right foraminal narrowing. The central canal and left neural foramen are patent. L5-S1: Tiny posterior annular disc bulge. Ligamentum thickening with moderate facet arthrosis. No central canal or foraminal narrowing. IMPRESSION: 1. Motion degraded exam with discogenic degeneration as above. 2. No high-grade central canal or foraminal narrowing. 3. No acute fracture. ACT 112: Negative or not required by law. The above report was generated using voice recognition software. It may contain grammatical, syntax or spelling errors. Electronically signed by: Howard Alexander M.D. 01/17/2024 12:24 PM Brain MRI 01/17/24 10:09 MR brain wo/w con HISTORY: 68 years-old Female ?seizure, leg weakness, expressive aphasia acute seizure-like activity COMPARISON: Brain MRI 05/01/2023, head CT 01/17/2024 TECHNIQUE: Multiplanar multisequence MRI of the brain was obtained with and without IV contrast FINDINGS: No restricted diffusion to suggest acute or subacute infarct. Midline structures appear unremarkable. No acute intracranial hemorrhage, midline shift, abnormal extra axial collection, hydrocephalus or intra-axial mass. Cerebral venous sinuses and major arterial flow voids appear patent. Skull, orbits and soft tissues are unremarkable. The mesial temporal lobes appear normal. No evidence of mesial temporal sclerosis. No evidence of cortical dysplasia or calderon matter heterotopia. Involutional changes with mild scattered subcentimeter T2/FLAIR hyperintense foci throughout the white matter, likely chronic microvascular ischemic disease. Findings are unchanged from prior. No a bnormal enhancement. IMPRESSION: 1. No acute intracranial abnormality. 2. No abnormal enhancement. 3. Involutional changes with suggestion of mild chronic microvascular ischemic disease. ACT 112: Negative or not required by law. The above report was generated using voice recognition software. It may contain grammatical, syntax or spelling errors. Electronically signed by: Howard Alexander M.D. 01/17/2024 12:59 PM Thoracic Spine MRI 01/17/24 11:30 MR thoracic spine wo con CLINICAL HISTORY: leg weakness TECHNIQUE: Multiplanar sequences through the thoracic spine were obtained, without intravenous contrast. Comparison: None available at the time of this dictation. FINDINGS: Exam is limited by patient motion. The alignment is anatomical. Minimal disc disease is seen without significant canal or neuroforaminal stenosis. The spinal canal and neural foramina are patent. The spinal ligaments are intact, without evidence of disruption or abnormal signal intensity. The spinal cord is normal in signal intensity and there is no evidence of cord contusion. There is no evidence of an extradural, intradural, extramedullary or intramedullary lesion. Visualized soft tissues are normal. IMPRESSION: Limited exam without evidence of cord compression, significant neuroforaminal narrowing or ligamentous injury. ACT 112: Negative or not required by law. Electronically signed by: Sami Tejada M.D. 01/17/2024 1:11 PM Cervical Spine MRI 01/18/24 00:01 EXAM: MR cervical spine wo con CLINICAL HISTORY: Possible seizures the patient reportedly woke up incontinent around 4 AM and had associated difficulty with speech for EMS Bilateral lower extremity weakness may be more prominent on the right side CT''s all negative. patient answered questions appropriately. walked into MRI scan room w/o difficulty. repeated scans due to patient motion. MRI brain, thoracic and lumbar done on 01/16. CT cervical spine 01/16. CT head 01/16. room 229-2 225 images TECHNIQUE: Multisequential and multiplanar images of the cervical spine were submitted for review without contrast. COMPARISON: None. FINDINGS: Straightening of the cervical lordosis. Alignment of the spine is maintained. Mild marrow edema is noted involving the inferior endplate of C5 and superior endplate of C6 vertebra. Most of the discs show degenerative changes. Reduction of the C5-C6 disc height is noted. The cord is normal in caliber and signal. There is no cerebellar ectopia. The visualized paraspinal soft tissues are grossly unremarkable. C2-C3: No disc herniation. No central canal stenosis or neuroforaminal narrowing. C3-C4: No disc herniation. No central canal stenosis or neuroforaminal narrowing. C4-C5: No disc herniation. No central canal stenosis or neuroforaminal narrowing. C5-C6: Mild disc bulge is noted causing mild spinal canal and bilateral neural foraminal stenosis. C6-C7: No disc herniation. No central canal stenosis or neuroforaminal narrowing. C7-T1: No disc herniation. No central canal stenosis or neuroforaminal narrowing. IMPRESSION: 1. Degenerative changes. 2. Mild marrow edema is noted involving the inferior endplate of C5 and superior endplate of C6 vertebra, likely degenerative. 3. Reduction of the C5-C6 disc height is noted. Mild posterior disc bulge is noted at this level causing mild spinal canal and bilateral neural foraminal stenosis. Electronically signed by Eliseo Biggs 01-18-2024 02:46 AM Laboratory Results - last 48 hr 01/17/24 01/17/24 01/18/24 08:55 15:46 06:06 WBC 4.85 RBC 4.24 Hgb 13.0 Hct 38.3 MCV 90.3 MCH 30.7 MCHC 33.9 RDW Std Deviation 40.5 RDW Coeff of Nam 12.3 Plt Count 258 MPV 9.7 Sodium 139 Potassium 4.1 Chloride 106 Carbon Dioxide 27 Anion Gap 6 BUN 13 Creatinine 0.80 Est Cr Clr Drug Dosing 65.5 eGFR 80.21 BUN/Creatinine Ratio 16.3 Glucose 101 H Estimat Average Glucose 111 Hemoglobin A1c 5.5 Calcium 9.0 Magnesium Triglycerides 83 Cholesterol 219 H LDL Cholesterol, Calc 140 VLDL Cholesterol, Calc 17 HDL Cholesterol 62 Cholesterol/HDL Ratio 3.5 Vitamin B12 897 TSH 2.715 Anaplasma Smear See Comment Babesia Smear See Comment Lyme Disease Screen Negative 01/19/24 05:51 WBC 4.74 L RBC 4.37 Hgb 13.2 Hct 39.7 MCV 90.8 MCH 30.2 MCHC 33.2 RDW Std Deviation 40.1 RDW Coeff of Nam 12.0 Plt Count 249 MPV 10.1 Sodium 139 Potassium 4.1 Chloride 107 Carbon Dioxide 27 Anion Gap 5 BUN 18 Creatinine 0.77 Est Cr Clr Drug Dosing 68.0 eGFR 83.97 BUN/Creatinine Ratio 23.4 H Glucose 86 Estimat Average Glucose Hemoglobin A1c Calcium 9.1 Magnesium 2.2 Triglycerides Cholesterol LDL Cholesterol, Calc VLDL Cholesterol, Calc HDL Cholesterol Cholesterol/HDL Ratio Vitamin B12 TSH Anaplasma Smear Babesia Smear Lyme Disease Screen Pending Results Patient Have Any Pending Studies at Discharge: Yes (Tickborne illness panel: Anaplasma, Babesia, Ehrlichia and Rickettsia PCR) Discharge Instructions Given to Patient (Per Discharging Provider) DISCHARGE INSTRUCTION TO PATIENT/FAMILY: Follow-up with your primary care provider within 1 week regarding: Posthospital discharge, medication review, medication refills and follow-up on all your medical problems, pending test results Please take all your discharge medications, discharge information and discharge instructions to all your doctors appointments. Avoid all NSAIDs including ibuprofen, Motrin, Advil, Aleve, naproxen, meloxicam, Toradol, diclofenac Following blood test results are still pending:Tickborne illness panel: Anaplasma, Babesia, Ehrlichia and Rickettsia PCR. 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 Please follow-up with neurologist as outpatient in 1 to 2 weeks time for outpatient EEG and any further investigations Do not take baths, go swimming, use heavy machinery or drive until you are cleared by neurology. You may shower. 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
[2024-01-23 00:38] LABS: Babesia microti DNA Not Detected (Not Detected); Q Fever IgG, Phase I NEGATIVE; Q Fever Phase I IgM Antibody NEGATIVE; Q Fever Phase II IgG Antibody NEGATIVE; Q Fever Phase II IgM Antibody NEGATIVE; R. typhi IgG Ab NOT DETECTED; R. typhi IgM Ab NOT DETECTED; RMSF IgG Ab NOT DETECTED; RMSF IgM Ab NOT DETECTED
== END 2024-01-19 15:57 | disposition home or self-care (01) ==
LOC: ED 08:47 → SUATTDRO 14:43 → 2S 14:43 → INTOOBSV 14:43 → 2S 15:47

== ENCOUNTER 2024-05-23 07:55 | Inpatient (IN) ==
[2024-05-23] MEDS: SODIUM CHLORIDE 0.9% 1,000 ML IV SCH (08:17)
[2024-05-23] MEDS: HYDROmorphone INJ 0.5 MG/0.5 ML SYR IV PRN (08:25)
[2024-05-23] MEDS: ONDANSETRON INJ 2 MG/ML 2 ML VIAL IV STA (08:25)
[2024-05-23 08:32] LABS: Basophils # (auto) 0.04 K/uL (0.00-0.20); Basophils % (auto) 0.3 %; Eosinophils # (auto) 0.03 K/uL (0.00-0.50); Eosinophils % (auto) 0.2 %; Hematocrit (blood only) 38.4 % (37.0-47.0); Hemoglobin 13.4 g/dl (12.0-16.0); Immature Granulocytes # (auto) 0.03 K/uL (0.01-0.20); Immature Granulocytes % (auto) 0.2 %; Lymphocytes # (auto) 1.14 K/uL (1.20-3.40); Lymphocytes % (auto) 8.3 %; Mean Corpuscular Hemoglobin 31.5 pg (25.0-34.0); Mean Corpuscular Hgb Conc 34.9 g/dL (32.0-36.0); Mean Corpuscular Volume 90.4 fL (80.0-100.0); Mean Platelet Volume 9.9 fL (9.4-12.4); Monocytes # (auto) 0.68 K/uL (0.11-0.59); Neutrophils # (auto) 11.78 K/uL (1.40-6.50); Platelet Count 255 K/uL (130-400); RDW Coefficient of Variation 12.2 % (11.5-14.5); RDW Standard Deviation 40.4 fL (36.4-46.3); Red Blood Count 4.25 M/uL (4.20-5.40)
[2024-05-23 08:49] LABS: Albumin Globulin Ratio 1.6 (0.9-2); Albumin Level 4.5 gm/dl (3.4-5.0); BUN Creatinine Ratio 23.3 (10-20); Bilirubin,Total 0.6 mg/dl (0.2-1.0); Calcium 9.5 mg/dl (8.6-10.3); Globulin 2.9 gm/dl (2.5-4.0); Magnesium 2.1 mg/dl (1.7-2.4); Potassium 4.1 mmol/L (3.5-5.1); Total Protein 7.4 gm/dl (6.0-8.3)
[2024-05-23 08:56] LABS: Troponin I High Sensitivity 8.3 pg/ml (0-14)
--- NOTE | 2024-05-23 08:57 | XRay Report ---
XR shoulder RT min 2V routine CLINICAL HISTORY: seizure and right shoulder pain COMPARISON: 01/17/2024 FINDINGS: is a fracture of the proximal humerus involving the humeral head and surgical neck. There i s lateral rotation of the humeral head fragment with mild medial displacement. No dislocation. IMPRESSION: Acute fracture proximal right humerus. ACT 112: Negative or not required by law. Electronically signed by: Marlon Reid M.D. 05/23/2024 8:55 AM
--- NOTE | 2024-05-23 08:57 | XRay Report ---
XR chest 1V portable CLINICAL HISTORY: weakness COMPARISON STUDY: 01/17/2024. FINDINGS: There is stable mild cardiomegaly without pulmonary vascular congestion. No effusion, conso lidation, or pneumothorax. There is a fracture at the proximal right humerus, better seen on the shou lder views today. IMPRESSION: Fracture proximal right humerus. No other acute findings. ACT 112: Negative or not required by law. Electronically signed by: Marlon Reid M.D. 05/23/2024 8:56 AM
--- NOTE | 2024-05-23 09:01 | CT Scan Report ---
CT head/brain wo con CLINICAL HISTORY: seizure. TECHNIQUE: Multiple axial CT images of the head were obtained without contrast. A dose lowering tech nique was utilized adhering to the principles of ALARA. CT DOSE: 703.85 mGy.cm COMPARISON: 01/17/2024 FINDINGS: No intracranial hemorrhage seen. No mass effect, midline shift, or hydrocephalus. No skull fracture seen. Visualized paranasal sinuses are clear. No mastoid effusion. IMPRESSION: No acute findings. ACT 112: Negative or not required by law. The above report was generated using voice recognition software. It may contain grammatical, syntax o r spelling errors. Electronically signed by: Marlon Reid M.D. 05/23/2024 9:00 AM
[2024-05-23 09:05] LABS: Thyroid Stimulating Hormone 3.713 uIu/ml (0.300-4.500)
--- NOTE | 2024-05-23 09:18 | CT Scan Report ---
CT shoulder RT wo con HISTORY: 68 years-old Female seizure, abn xray acute right shoulder pain status post trauma COMPARISON: Shoulder radiographs of same day and also 01/17/2024. TECHNIQUE: Multiple axial CT images of the right shoulder were obtained without IV contrast. A dose l owering technique was used consistent with the principals of VAIBHAV. FINDINGS: Mildly demineralized appearance of the bones. Postoperative changes of the humeral head. Mild glenohu meral with moderate AC joint osteoarthritis. The imaged ribs appear intact. Acute comminuted multi pa rt displaced proximal humeral fracture involves the greater and lesser tuberosities, humeral head and surgical neck. The humeral head component is displaced posteriorly approximately 2.7 cm with disloca tion of the glenohumeral articulation. The glenoid appears intact. There are several small intra-sheri cular fracture fragments. The imaged lung carroll appear clear. Hemarthrosis of the shoulder with deep tissue edema. IMPRESSION: 1. Acute, comminuted and displaced multi part proximal humeral fracture with glenohumeral dislocation . 2. Posttraumatic hemarthrosis. ACT 112: Negative or not required by law. The above report was generated using voice recognition software. It may contain grammatical, syntax o r spelling errors. Electronically signed by: Howard Alexander M.D. 05/23/2024 9:15 AM
[2024-05-23] MEDS: levETIRAcetam 500 MG/5 ML VIAL IV STA (09:53)
--- NOTE | 2024-05-23 11:04 | Emergency Department Note ---
Impression & Plan Seizure, Closed fracture dislocation of right shoulder, Generalized weakness ED Provider Note NAME: HAMILTON ELIZABETH AGE: 68 SEX: Female INFORMANT: Patient and family ED PROVIDER(S): Jose Navarro MD CHIEF COMPLAINT: Seizure PLAN: Disposition: Admitted Outpatient prescription management: none Referral: None MEDICAL DECISION MAKING: Patient presented because of seizure. Clinical history and physical findings consistent with the same. X-ray imaging was performed and the patient appears to have a fracture dislocation of the right shoulder. This was confirmed on CT imaging. Head CT was unremarkable. Patient has slight leukocytosis which I suspect is related to the seizure episode. Patient was treated with IV Dilaudid. I did place a consult with neurology, Dr. Baxter. He knows the patient well. He did recommend a Keppra load and 500 mg twice daily. This was done. Discussed with ED pharmacist. I did place consult with on-call orthopedics, Dr. Barriga. Discussed the case. He noted he will present to the ER and help with attempt at reduction. His ROCÍO did evaluate the patient in the emergency department. He did present and I did perform sedation and he did perform an attempted reduction. He noted this was unsuccessful and the patient would need surgical intervention. He is going to discuss this with his orthopedic colleagues for intervention. He did discuss this with the patient and family. Patient will require further evaluation and management in the hospital. Consultation was made with Dr. Calixto, of the [facility] hospitalist service. Case discussed and diagnostics were reviewed. Patient was evaluated in the ER and admitted for further management. Care/management discussed with: senior portfolio manager, ED pharmacist, hospitalist, orthopedics, neurology Level of care consideration(s): After review of the information above and other included data, I feel the patient requires escalation of care to admission Triage Nursing notes: reviewed and agree them. Vital Signs: reviewed and remarkable for no significant abnormalities Additional History obtained from: Family Chronic Medical/Social Conditions affecting care: Seizure Prior/ Outside/ External records reviewed: none Differential Diagnosis: Epilepsy, trauma, infection, hypoglycemia, electrolyte abnormalities, cardiac sources, intracerebral event, trauma, toxicologic, neurologic, syncope, as well as other pathologies. Diagnostics, independently interpreted by me: ECG: Twelve-lead ECG was a sinus rhythm at 67 bpm. Septal Q wave. PAC. No ST elevation. Cardiac Monitoring: Cardiac monitoring ordered by me: The patient was placed on continuous cardiac monitoring and observed. It revealed a sinus rhythm at 79 bpm. Medical decision rules: none Imaging studies: Head CT: A noncontrast CT scan of the head was performed and was negative for tumor, fracture, intracranial hemorrhage, or other acute pathology. Chest x-ray. Findings: A chest x-ray was performed and revealed no pneumothorax, effusion, infiltrate, pulmonary edema, free air under the diaphragm, or wide mediastinum. Right humerus fracture noted. X-ray imaging of the right shoulder is concerning for fracture dislocation. CT imaging of the right shoulder is concerning for posterior dislocation of the glenohumeral joint with fracture of the proximal humerus. HPI: 68 year old Female arrives for evaluation of possible seizure. Patient states that she was in bed this morning and then woke up with discomfort in the right shoulder described as severe. Patient also noted having bit her tongue and was incontinent. Patient did have a seizure recently. She is followed by [facility] neurology. The patient states she is not on any specific medications for seizure. Patient rated the pain as a 10 in the right shoulder and she cannot move the arm. Patient denies any other injury. No recent illness. Patient last saw neurology 2 weeks ago. Pt denies headache, fevers, chills, diaphoresis, visual changes, neck pain, chest pain, breathing difficulties, nausea, vomiting, abdominal pain, back pain, melena, hematochezia, urinary symptoms, numbness, weakness, lymphadenopathy, rash, or other complaints. PAST MEDICAL HISTORY: See Below, seizure PAST SURGICAL HISTORY: See Below, SOCIAL HISTORY: See Below, former smoker HOME MEDICATIONS: See Below ALLERGIES: See Below VITALS: See Below PHYSICAL EXAMINATION: GENERAL: Awake, alert, uncomfortable -appearing, in no distress HENT: Normocephalic, atraumatic. Oropharynx unremarkable except for a bite eddie to the left side of the tongue anteriorly without lacerations. EYES: Normal conjunctiva. Sclera non-icteric. PERRLA. EOMI. NECK: Inspection normal. Non-tender. Supple. No nuchal rigidity. FROM. No masses. RESPIRATORY: Clear to auscultation. No wheezes. No rales. Normal respiratory effort. CARDIAC: Normal rate. Normal rhythm. No murmurs. No rubs. Extremities warm and well perfused. Pulses equal. No JVD. GI: Soft, non-distended. No tenderness to palpation. No rebound or guarding. No masses. RECTAL: Deferred. MUSCULOSKELETAL: Examination of the right upper extremity reveals swelling and tenderness around the right deltoid. Range of motion at the right shoulder is significantly limited secondary to pain. The distal humerus, elbow, forearm, wrist and hand examined normally and are neurovascularly intact. Left upper and both lower extremities are atraumatic. Chest examination reveals no tenderness. The back is symmetrical on inspection without obvious abnormality. There is no CVA tenderness to palpation. No joint edema. LOWER EXTREMITIES: Calves are equal size bilaterally and non-tender. No edema. No discoloration. NEURO: Normal sensorium. No sensory or motor deficits note except for mild generalized weakness in the lower extremities which patient states has been going on. SKIN: No rash or jaundice noted. PROCEDURES: Procedural Sedation Indication fracture dislocation Total time: 16 minutes. Written consent was obtained after the risks and benefits were explained to the patient and family, including, but not limited to aspiration, allergic reaction, breathing difficulties, cardiac complications, vomiting, pain, event recall, bleeding, and/or infection. Pre-sedation examination and paperwork completed. The patient was on 100% oxygen via NRB prior to the procedure. Continous end tidal CO2 monitoring, pulse oximetry, and cardiac monitoring were utilized. Suction, airway equipment, medications, respiratory equipment, and appropriate personnel were prepared prior to the initiation of the procedure. A time out was taken. Sedation was achieved utilizing 85 mg of propofol in incremental doses, I refer you to the EMR for further details.. After I observed the patient had reached the appropriate level of sedation the main procedure was performed without complication. Sedation was discontinued and the monitoring continued. The patient recovered quickly from the effects of the medication without complication or adverse event. CRITICAL CARE: none OBSERVATION NOTE: none Past Med/Surg History Problem List (Updated 05/23/24 @ 12:07 by ISMAEL Armstrong) Closed fracture dislocation of right shoulder (Acute ~05/23/24) Acute, comminuted and displaced multi part right proximal humeral fracture with glenohumeral dislocation. Generalized weakness (Acute) Closed fracture dislocation of right shoulder (Acute 05/23/24) Acute, comminuted and displaced multi part right proximal humeral fracture with glenohumeral dislocation after potential seizure per orthopedic note. Seizure (Acute) Leg weakness Hypertension Nocturnal seizure (01/2024) Acquired solitary kidney Allen's paralysis Insomnia OAB (overactive bladder) Sensorineural hearing loss (SNHL) of left ear Tinnitus of left ear Dyslipidemia Seborrheic keratoses Vitamin D deficiency Medical History Hx of one miscarriage Surgical History H/O tooth extraction History of oral surgery H/O kidney donation S/P dilatation and curettage x 2 Family History Mother Bipolar disorder Cardiac disorder Depression Diabetes Gallbladder disease Myocardial infarction Hypertension Heart disease Father Cardiac disorder Diabetes Hypertension Myocardial infarction Heart disease Sister Cardiac disorder Myocardial infarction Brother Diabetes Hypertension Stroke Denies family history of Ovarian cancer Prostate cancer Breast cancer Colorectal cancer Social History Smoking Status: Former smoker Tobacco Type: Cigarettes Age Started Using Tobacco: 15; Age Quit Using Tobacco: 22; packs per day: 0.5; Second Hand Exposure: No; Do You Dip or Chew Tobacco: No; Hx Alcohol Use: No Hx Substance Use: No Preferred Language: Dutch Communication Ability: Effective Visual Impairment: No Limitations Hearing Ability: Normal Painter Required: No Beliefs That Will Affect Care: None marital status: / Current Living Situation: Alone current occupational status: retired 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 Occasionally eats chicken caffeine: Yes (two cups coffee/day ) during the past year weight has: remained stable Dental Care, Regularly: Yes Physical Activity Frequency: Daily Seatbelt Use: always Sunscreen Use: Yes Assistive Devices: None Allergies Allergies Allergy/AdvReac Type Severity Reaction Status Date / Time No Known Allergies Allergy Verified 05/23/24 09:35 Home Meds Home Medications Medication Instructions Recorded Confirmed coenzyme Q10 100 mg capsule 100 mg PO DAILY 01/17/24 05/23/24 (CoQ-10) ezetimibe 10 mg tablet (Zetia) 10 mg PO HS 01/17/24 05/23/24 pravastatin 20 mg tablet 20 mg PO QAM 01/17/24 05/23/24 hydroxyzine HCl 25 mg tablet 25 mg PO HS PRN Insomnia 04/11/24 05/23/24 multivitamin 1 tab PO DAILY 05/23/24 05/23/24 Results & Data (ED) Vital Signs Vital Signs - 24 hr 05/23/24 07:55 05/23/24 07:55 05/23/24 07:55 Temperature 36.6 C Temperature Source Temporal Artery Scan Pulse Rate 63 Pulse Rate [Apical] Pulse Rate from SpO2 Sensor Pulse Rhythm [Apical] Respiratory Rate 18 18 Blood Pressure 154/95 H Blood Pressure [Left Arm] Blood Pressure Mean 114 Blood Pressure Mean [Left Arm] Pulse Oximetry 99 Oxygen Delivery Method Room Air Oxygen Flow Rate Sepsis Recent Fever Within 48 Hours No Sepsis New/Unexplained Change in Mental Status N/A Sepsis Action Taken by Nursing No Action Required End-Tidal CO2 End Tidal CO2 (18-54mmHg) 05/23/24 08:07 05/23/24 08:58 05/23/24 09:09 Temperature Temperature Source Pulse Rate 68 70 Pulse Rate [Apical] Pulse Rate from SpO2 Sensor 71 Pulse Rhythm [Apical] Respiratory Rate 17 Blood Pressure Blood Pressure [Left Arm] Blood Pressure Mean Blood Pressure Mean [Left Arm] Pulse Oximetry 95 99 Oxygen Delivery Method Oxygen Flow Rate Sepsis Recent Fever Within 48 Hours Sepsis New/Unexplained Change in Mental Status Sepsis Action Taken by Nursing End-Tidal CO2 End Tidal CO2 (18-54mmHg) 05/23/24 09:18 05/23/24 09:30 05/23/24 09:33 Temperature Temperature Source Pulse Rate 80 72 Pulse Rate [Apical] Pulse Rate from SpO2 Sensor 78 72 Pulse Rhythm [Apical] Respiratory Rate 14 13 Blood Pressure 152/70 H Blood Pressure [Left Arm] Blood Pressure Mean 89 Blood Pressure Mean [Left Arm] Pulse Oximetry 99 98 Oxygen Delivery Method Oxygen Flow Rate Sepsis Recent Fever Within 48 Hours Sepsis New/Unexplained Change in Mental Status Sepsis Action Taken by Nursing End-Tidal CO2 End Tidal CO2 (18-54mmHg) 05/23/24 09:54 05/23/24 09:55 05/23/24 10:00 Temperature Temperature Source Pulse Rate 79 Pulse Rate [Apical] 58 L Pulse Rate from SpO2 Sensor 80 Pulse Rhythm [Apical] Respiratory Rate 20 18 Blood Pressure 152/81 H Blood Pressure [Left Arm] 152/70 H Blood Pressure Mean 121 Blood Pressure Mean [Left Arm] 97 Pulse Oximetry 99 100 Oxygen Delivery Method Nasal Cannula Oxygen Flow Rate 2 Sepsis Recent Fever Within 48 Hours Sepsis New/Unexplained Change in Mental Status Sepsis Action Taken by Nursing End-Tidal CO2 End Tidal CO2 (18-54mmHg) 05/23/24 10:00 05/23/24 10:00 05/23/24 10:00 Temperature Temperature Source Pulse Rate 77 Pulse Rate [Apical] Pulse Rate from SpO2 Sensor 74 Pulse Rhythm [Apical] Respiratory Rate 23 Blood Pressure 152/81 H 152/81 H Blood Pressure [Left Arm] Blood Pressure Mean 121 121 Blood Pressure Mean [Left Arm] Pulse Oximetry 99 Oxygen Delivery Method Oxygen Flow Rate Sepsis Recent Fever Within 48 Hours Sepsis New/Unexplained Change in Mental Status Sepsis Action Taken by Nursing End-Tidal CO2 End Tidal CO2 (18-54mmHg) 05/23/24 10:18 05/23/24 10:45 05/23/24 11:00 Temperature Temperature Source Pulse Rate 68 80 Pulse Rate [Apical] 77 Pulse Rate from SpO2 Sensor 72 76 Pulse Rhythm [Apical] Regular Respiratory Rate 18 Blood Pressure Blood Pressure [Left Arm] 146/87 H Blood Pressure Mean Blood Pressure Mean [Left Arm] 106 Pulse Oximetry 97 98 97 Oxygen Delivery Method Room Air Oxygen Flow Rate Sepsis Recent Fever Within 48 Hours Sepsis New/Unexplained Change in Mental Status Sepsis Action Taken by Nursing End-Tidal CO2 End Tidal CO2 (18-54mmHg) 05/23/24 11:00 05/23/24 11:03 05/23/24 11:12 Temperature Temperature Source Pulse Rate 79 78 Pulse Rate [Apical] Pulse Rate from SpO2 Sensor 80 78 Pulse Rhythm [Apical] Respiratory Rate Blood Pressure 146/87 H Blood Pressure [Left Arm] Blood Pressure Mean 106 Blood Pressure Mean [Left Arm] Pulse Oximetry 97 97 Oxygen Delivery Method Oxygen Flow Rate Sepsis Recent Fever Within 48 Hours Sepsis New/Unexplained Change in Mental Status Sepsis Action Taken by Nursing End-Tidal CO2 End Tidal CO2 (18-54mmHg) 05/23/24 11:30 05/23/24 11:30 05/23/24 11:30 Temperature Temperature Source Pulse Rate Pulse Rate [Apical] Pulse Rate from SpO2 Sensor Pulse Rhythm [Apical] Respiratory Rate Blood Pressure 151/85 H 151/85 H 151/85 H Blood Pressure [Left Arm] Blood Pressure Mean 105 105 105 Blood Pressure Mean [Left Arm] Pulse Oximetry Oxygen Delivery Method Oxygen Flow Rate Sepsis Recent Fever Within 48 Hours Sepsis New/Unexplained Change in Mental Status Sepsis Action Taken by Nursing End-Tidal CO2 End Tidal CO2 (18-54mmHg) 05/23/24 11:30 05/23/24 11:51 05/23/24 12:00 Temperature Temperature Source Pulse Rate 80 73 77 Pulse Rate [Apical] Pulse Rate from SpO2 Sensor 79 74 79 Pulse Rhythm [Apical] Respiratory Rate Blood Pressure Blood Pressure [Left Arm] Blood Pressure Mean Blood Pressure Mean [Left Arm] Pulse Oximetry 97 98 99 Oxygen Delivery Method Oxygen Flow Rate Sepsis Recent Fever Within 48 Hours Sepsis New/Unexplained Change in Mental Status Sepsis Action Taken by Nursing End-Tidal CO2 End Tidal CO2 (18-54mmHg) 05/23/24 12:52 05/23/24 12:57 05/23/24 13:00 Temperature Temperature Source Pulse Rate 79 77 Pulse Rate [Apical] 76 Pulse Rate from SpO2 Sensor Pulse Rhythm [Apical] Respiratory Rate 20 16 18 Blood Pressure Blood Pressure [Left Arm] 166/78 H 170/136 H 140/93 Blood Pressure Mean Blood Pressure Mean [Left Arm] 108 Pulse Oximetry 100 100 95 Oxygen Delivery Method Non-rebreather Non-rebreather Nasal Cannula Oxygen Flow Rate 15 15 2 Sepsis Recent Fever Within 48 Hours Sepsis New/Unexplained Change in Mental Status Sepsis Action Taken by Nursing End-Tidal CO2 End Tidal CO2 (18-54mmHg) 34 36 05/23/24 13:02 05/23/24 13:05 05/23/24 13:07 Temperature Temperature Source Pulse Rate 80 78 79 Pulse Rate [Apical] Pulse Rate from SpO2 Sensor Pulse Rhythm [Apical] Respiratory Rate 16 16 Blood Pressure Blood Pressure [Left Arm] 172/90 H 163/77 H Blood Pressure Mean Blood Pressure Mean [Left Arm] Pulse Oximetry 100 100 Oxygen Delivery Method Non-rebreather Non-rebreather Oxygen Flow Rate 15 15 Sepsis Recent Fever Within 48 Hours Sepsis New/Unexplained Change in Mental Status Sepsis Action Taken by Nursing End-Tidal CO2 End Tidal CO2 (18-54mmHg) 44 44 05/23/24 13:12 05/23/24 13:15 05/23/24 13:20 Temperature Temperature Source Pulse Rate 87 75 79 Pulse Rate [Apical] Pulse Rate from SpO2 Sensor Pulse Rhythm [Apical] Respiratory Rate 16 16 16 Blood Pressure Blood Pressure [Left Arm] 148/87 H 128/82 134/90 Blood Pressure Mean Blood Pressure Mean [Left Arm] Pulse Oximetry 100 98 98 Oxygen Delivery Method Nasal Cannula Nasal Cannula Nasal Cannula Oxygen Flow Rate 4 2 2 Sepsis Recent Fever Within 48 Hours Sepsis New/Unexplained Change in Mental Status Sepsis Action Taken by Nursing End-Tidal CO2 End Tidal CO2 (18-54mmHg) 32 37 40 05/23/24 13:25 05/23/24 13:30 05/23/24 13:30 Temperature Temperature Source Pulse Rate 78 77 Pulse Rate [Apical] Pulse Rate from SpO2 Sensor Pulse Rhythm [Apical] Respiratory Rate 16 16 Blood Pressure 162/93 H Blood Pressure [Left Arm] 126/90 162/93 H Blood Pressure Mean 103 Blood Pressure Mean [Left Arm] Pulse Oximetry 100 100 Oxygen Delivery Method Nasal Cannula Nasal Cannula Oxygen Flow Rate 2 2 Sepsis Recent Fever Within 48 Hours Sepsis New/Unexplained Change in Mental Status Sepsis Action Taken by Nursing End-Tidal CO2 End Tidal CO2 (18-54mmHg) 38 37 05/23/24 13:30 05/23/24 13:33 05/23/24 13:36 Temperature Temperature Source Pulse Rate 75 Pulse Rate [Apical] Pulse Rate from SpO2 Sensor 78 Pulse Rhythm [Apical] Respiratory Rate 28 H Blood Pressure 162/93 H 167/82 H Blood Pressure [Left Arm] Blood Pressure Mean 103 93 Blood Pressure Mean [Left Arm] Pulse Oximetry 99 Oxygen Delivery Method Oxygen Flow Rate Sepsis Recent Fever Within 48 Hours Sepsis New/Unexplained Change in Mental Status Sepsis Action Taken by Nursing End-Tidal CO2 38 End Tidal CO2 (18-54mmHg) 05/23/24 13:39 05/23/24 13:42 05/23/24 13:42 Temperature Temperature Source Pulse Rate 79 Pulse Rate [Apical] Pulse Rate from SpO2 Sensor 80 Pulse Rhythm [Apical] Respiratory Rate 23 Blood Pressure 171/94 H 171/94 H Blood Pressure [Left Arm] Blood Pressure Mean 118 118 Blood Pressure Mean [Left Arm] Pulse Oximetry 98 Oxygen Delivery Method Oxygen Flow Rate Sepsis Recent Fever Within 48 Hours Sepsis New/Unexplained Change in Mental Status Sepsis Action Taken by Nursing End-Tidal CO2 36 End Tidal CO2 (18-54mmHg) 05/23/24 13:46 05/23/24 13:48 05/23/24 13:50 Temperature Temperature Source Pulse Rate 82 Pulse Rate [Apical] Pulse Rate from SpO2 Sensor 82 Pulse Rhythm [Apical] Respiratory Rate 21 Blood Pressure 147/91 H 160/88 H Blood Pressure [Left Arm] Blood Pressure Mean 137 127 Blood Pressure Mean [Left Arm] Pulse Oximetry 99 Oxygen Delivery Method Oxygen Flow Rate Sepsis Recent Fever Within 48 Hours Sepsis New/Unexplained Change in Mental Status Sepsis Action Taken by Nursing End-Tidal CO2 35 End Tidal CO2 (18-54mmHg) 05/23/24 13:50 05/23/24 13:50 05/23/24 13:51 Temperature Temperature Source Pulse Rate 77 Pulse Rate [Apical] Pulse Rate from SpO2 Sensor 80 Pulse Rhythm [Apical] Respiratory Rate 10 L Blood Pressure 160/88 H 160/88 H Blood Pressure [Left Arm] Blood Pressure Mean 127 127 Blood Pressure Mean [Left Arm] Pulse Oximetry 98 Oxygen Delivery Method Oxygen Flow Rate Sepsis Recent Fever Within 48 Hours Sepsis New/Unexplained Change in Mental Status Sepsis Action Taken by Nursing End-Tidal CO2 26 End Tidal CO2 (18-54mmHg) 05/23/24 13:54 05/23/24 13:55 05/23/24 14:10 Temperature Temperature Source Pulse Rate 83 Pulse Rate [Apical] Pulse Rate from SpO2 Sensor 82 Pulse Rhythm [Apical] Respiratory Rate 21 Blood Pressure 121/92 146/79 H Blood Pressure [Left Arm] Blood Pressure Mean 97 124 Blood Pressure Mean [Left Arm] Pulse Oximetry 97 Oxygen Delivery Method Oxygen Flow Rate Sepsis Recent Fever Within 48 Hours Sepsis New/Unexplained Change in Mental Status Sepsis Action Taken by Nursing End-Tidal CO2 37 End Tidal CO2 (18-54mmHg) 05/23/24 14:10 05/23/24 14:10 05/23/24 14:12 Temperature Temperature Source Pulse Rate 82 Pulse Rate [Apical] Pulse Rate from SpO2 Sensor 82 Pulse Rhythm [Apical] Respiratory Rate Blood Pressure 146/79 H 146/79 H Blood Pressure [Left Arm] Blood Pressure Mean 124 124 Blood Pressure Mean [Left Arm] Pulse Oximetry 96 Oxygen Delivery Method Oxygen Flow Rate Sepsis Recent Fever Within 48 Hours Sepsis New/Unexplained Change in Mental Status Sepsis Action Taken by Nursing End-Tidal CO2 End Tidal CO2 (18-54mmHg) 05/23/24 14:15 05/23/24 14:15 05/23/24 14:15 Temperature Temperature Source Pulse Rate Pulse Rate [Apical] Pulse Rate from SpO2 Sensor Pulse Rhythm [Apical] Respiratory Rate Blood Pressure 141/80 H 141/80 H 141/80 H Blood Pressure [Left Arm] Blood Pressure Mean 100 100 100 Blood Pressure Mean [Left Arm] Pulse Oximetry Oxygen Delivery Method Oxygen Flow Rate Sepsis Recent Fever Within 48 Hours Sepsis New/Unexplained Change in Mental Status Sepsis Action Taken by Nursing End-Tidal CO2 End Tidal CO2 (18-54mmHg) 05/23/24 14:15 05/23/24 14:18 05/23/24 14:20 Temperature Temperature Source Pulse Rate 83 Pulse Rate [Apical] Pulse Rate from SpO2 Sensor 85 Pulse Rhythm [Apical] Respiratory Rate Blood Pressure 141/80 H 152/84 H Blood Pressure [Left Arm] Blood Pressure Mean 100 115 Blood Pressure Mean [Left Arm] Pulse Oximetry 96 Oxygen Delivery Method Oxygen Flow Rate Sepsis Recent Fever Within 48 Hours Sepsis New/Unexplained Change in Mental Status Sepsis Action Taken by Nursing End-Tidal CO2 End Tidal CO2 (18-54mmHg) 05/23/24 14:20 05/23/24 14:20 05/23/24 14:21 Temperature Temperature Source Pulse Rate 79 Pulse Rate [Apical] Pulse Rate from SpO2 Sensor 79 Pulse Rhythm [Apical] Respiratory Rate Blood Pressure 152/84 H 152/84 H Blood Pressure [Left Arm] Blood Pressure Mean 115 115 Blood Pressure Mean [Left Arm] Pulse Oximetry 97 Oxygen Delivery Method Oxygen Flow Rate Sepsis Recent Fever Within 48 Hours Sepsis New/Unexplained Change in Mental Status Sepsis Action Taken by Nursing End-Tidal CO2 End Tidal CO2 (18-54mmHg) 05/23/24 14:25 05/23/24 14:30 05/23/24 14:30 Temperature Temperature Source Pulse Rate Pulse Rate [Apical] Pulse Rate from SpO2 Sensor Pulse Rhythm [Apical] Respiratory Rate Blood Pressure 149/87 H 139/77 139/77 Blood Pressure [Left Arm] Blood Pressure Mean 118 104 104 Blood Pressure Mean [Left Arm] Pulse Oximetry Oxygen Delivery Method Oxygen Flow Rate Sepsis Recent Fever Within 48 Hours Sepsis New/Unexplained Change in Mental Status Sepsis Action Taken by Nursing End-Tidal CO2 End Tidal CO2 (18-54mmHg) 05/23/24 14:36 05/23/24 14:36 05/23/24 14:39 Temperature Temperature Source Pulse Rate 78 Pulse Rate [Apical] Pulse Rate from SpO2 Sensor 77 Pulse Rhythm [Apical] Respiratory Rate Blood Pressure 150/101 H 150/101 H Blood Pressure [Left Arm] Blood Pressure Mean 115 115 Blood Pressure Mean [Left Arm] Pulse Oximetry 95 Oxygen Delivery Method Oxygen Flow Rate Sepsis Recent Fever Within 48 Hours Sepsis New/Unexplained Change in Mental Status Sepsis Action Taken by Nursing End-Tidal CO2 End Tidal CO2 (18-54mmHg) 05/23/24 14:40 05/23/24 14:40 05/23/24 14:40 Temperature Temperature Source Pulse Rate 78 Pulse Rate [Apical] 78 Pulse Rate from SpO2 Sensor Pulse Rhythm [Apical] Respiratory Rate 18 18 Blood Pressure 149/93 H Blood Pressure [Left Arm] Blood Pressure Mean 128 Blood Pressure Mean [Left Arm] Pulse Oximetry 97 Oxygen Delivery Method Nasal Cannula Oxygen Flow Rate 2 Sepsis Recent Fever Within 48 Hours Sepsis New/Unexplained Change in Mental Status Sepsis Action Taken by Nursing End-Tidal CO2 End Tidal CO2 (18-54mmHg) 05/23/24 14:40 05/23/24 14:40 05/23/24 14:50 Temperature Temperature Source Pulse Rate Pulse Rate [Apical] Pulse Rate from SpO2 Sensor Pulse Rhythm [Apical] Respiratory Rate Blood Pressure 149/93 H 149/93 H 138/86 Blood Pressure [Left Arm] Blood Pressure Mean 128 128 115 Blood Pressure Mean [Left Arm] Pulse Oximetry Oxygen Delivery Method Oxygen Flow Rate Sepsis Recent Fever Within 48 Hours Sepsis New/Unexplained Change in Mental Status Sepsis Action Taken by Nursing End-Tidal CO2 End Tidal CO2 (18-54mmHg) 05/23/24 14:50 05/23/24 14:50 05/23/24 14:51 Temperature Temperature Source Pulse Rate 75 Pulse Rate [Apical] Pulse Rate from SpO2 Sensor 76 Pulse Rhythm [Apical] Respiratory Rate Blood Pressure 138/86 138/86 Blood Pressure [Left Arm] Blood Pressure Mean 115 115 Blood Pressure Mean [Left Arm] Pulse Oximetry 97 Oxygen Delivery Method Oxygen Flow Rate Sepsis Recent Fever Within 48 Hours Sepsis New/Unexplained Change in Mental Status Sepsis Action Taken by Nursing End-Tidal CO2 End Tidal CO2 (18-54mmHg) 05/23/24 14:54 05/23/24 14:55 05/23/24 14:55 Temperature Temperature Source Pulse Rate 79 Pulse Rate [Apical] Pulse Rate from SpO2 Sensor 76 Pulse Rhythm [Apical] Respiratory Rate Blood Pressure 140/77 140/77 Blood Pressure [Left Arm] Blood Pressure Mean 116 116 Blood Pressure Mean [Left Arm] Pulse Oximetry 96 Oxygen Delivery Method Oxygen Flow Rate Sepsis Recent Fever Within 48 Hours Sepsis New/Unexplained Change in Mental Status Sepsis Action Taken by Nursing End-Tidal CO2 End Tidal CO2 (18-54mmHg) 05/23/24 15:00 05/23/24 15:00 05/23/24 15:05 Temperature Temperature Source Pulse Rate Pulse Rate [Apical] Pulse Rate from SpO2 Sensor Pulse Rhythm [Apical] Respiratory Rate Blood Pressure 137/83 137/83 136/83 Blood Pressure [Left Arm] Blood Pressure Mean 115 115 103 Blood Pressure Mean [Left Arm] Pulse Oximetry Oxygen Delivery Method Oxygen Flow Rate Sepsis Recent Fever Within 48 Hours Sepsis New/Unexplained Change in Mental Status Sepsis Action Taken by Nursing End-Tidal CO2 End Tidal CO2 (18-54mmHg) 05/23/24 15:05 05/23/24 15:05 05/23/24 15:06 Temperature Temperature Source Pulse Rate 77 Pulse Rate [Apical] Pulse Rate from SpO2 Sensor 77 Pulse Rhythm [Apical] Respiratory Rate Blood Pressure 136/83 136/83 Blood Pressure [Left Arm] Blood Pressure Mean 103 103 Blood Pressure Mean [Left Arm] Pulse Oximetry 96 Oxygen Delivery Method Oxygen Flow Rate Sepsis Recent Fever Within 48 Hours Sepsis New/Unexplained Change in Mental Status Sepsis Action Taken by Nursing End-Tidal CO2 End Tidal CO2 (18-54mmHg) 05/23/24 15:12 Temperature Temperature Source Pulse Rate Pulse Rate [Apical] 79 Pulse Rate from SpO2 Sensor Pulse Rhythm [Apical] Respiratory Rate 20 Blood Pressure Blood Pressure [Left Arm] 133/79 Blood Pressure Mean Blood Pressure Mean [Left Arm] 97 Pulse Oximetry 95 Oxygen Delivery Method Nasal Cannula Oxygen Flow Rate 2 Sepsis Recent Fever Within 48 Hours Sepsis New/Unexplained Change in Mental Status Sepsis Action Taken by Nursing End-Tidal CO2 End Tidal CO2 (18-54mmHg) Laboratory Data 05/23/24 08:15 05/23/24 08:15 Lab Results 05/23/24 Range/Units 08:15 WBC 13.70 H (4.8-10.8) K/ul RBC 4.25 (4.20-5.40) M/uL Hgb 13.4 (12.0-16.0) g/dl Hct 38.4 (37.0-47.0) % MCV 90.4 (80.0-100.0) fL MCH 31.5 (25.0-34.0) pg MCHC 34.9 (32.0-36.0) g/dL RDW Std Deviation 40.4 (36.4-46.3) fL RDW Coeff of Nam 12.2 (11.5-14.5) % Plt Count 255 (130-400) K/uL MPV 9.9 (9.4-12.4) fL Immature Gran % (Auto) 0.2 % Neut % (Auto) 86.0 % Lymph % (Auto) 8.3 % [place] % (Auto) 5.0 % Eos % (Auto) 0.2 % Baso % (Auto) 0.3 % Neut # (Auto) 11.78 H (1.40-6.50) K/uL Lymph # (Auto) 1.14 L (1.20-3.40) K/uL [place] # (Auto) 0.68 H (0.11-0.59) K/uL Eos # (Auto) 0.03 (0.00-0.50) K/uL Baso # (Auto) 0.04 (0.00-0.20) K/uL Immature Gran # (Auto) 0.03 (0.01-0.20) K/uL Sodium 140 (136-145) mmol/L Potassium 4.1 (3.5-5.1) mmol/L Chloride 105 (98-107) mmol/L Carbon Dioxide 25 (21-32) mmol/L Anion Gap 10 (3-11) BUN 17 (6-23) mg/dl Creatinine 0.73 (0.6-1.2) mg/dl Est Cr Clr Drug Dosing 69.0 ml/min eGFR 89.52 BUN/Creatinine Ratio 23.3 H (10-20) Glucose 121 H (70-99(Fasting)) mg/dl Calcium 9.5 (8.6-10.3) mg/dl Magnesium 2.1 (1.7-2.4) mg/dl Total Bilirubin 0.6 (0.2-1.0) mg/dl AST 24 (13-39) U/L ALT 16 (7-52) U/L Alkaline Phosphatase 55 (34-104) U/L Total Creatine Kinase 101 (26-192) U/L Troponin I High Sens 8.3 (0-14) pg/ml Total Protein 7.4 (6.0-8.3) gm/dl Albumin 4.5 (3.4-5.0) gm/dl Globulin 2.9 (2.5-4.0) gm/dl Albumin/Globulin Ratio 1.6 (0.9-2) TSH 3.713 (0.300-4.500) uIu/ml Administered Medications Hydromorphone HCl (Hydromorphone Inj 0.5 Mg/0.5 Ml Syr) 0.5 mg IV Q15M PRN PRN Reason: Pain Stop: 06/06/24 08:18 Last Admin: 05/23/24 13:58 Dose: 0.5 mg Documented By: Admin: 05/23/24 08:57 Dose: 0.5 mg Documented By: Admin: 05/23/24 08:38 Dose: 0.5 mg Documented By: Admin: 05/23/24 08:25 Dose: 0.5 mg Documented By: GANESH Sodium Chloride (Nss) 1,000 mls @ 125 mls/hr IV .Q8H SHYLA Stop: 05/24/24 08:14 Last Admin: 05/23/24 08:17 Dose: 125 mls/hr Documented By: GANESH Propofol (Propofol Iv Emulsion 10 Mg/Ml 20 Ml Vial) 200 mg IV NOW PRN PRN Reason: Sedation Stop: 05/26/24 11:03 Last Admin: 05/23/24 13:34 Dose: 85 mg Documented By: GLORIA Co-signed By: BECCA Discontinued Medications Levetiracetam (Levetiracetam 500 Mg/5 Ml Vial) 1,500 mg IV NOW STA Stop: 05/23/24 09:50 Last Admin: 05/23/24 09:53 Dose: 1,500 mg Documented By: GANESH Ondansetron HCl (Ondansetron Inj 2 Mg/Ml 2 Ml Vial) 4 mg IV NOW STA Stop: 05/23/24 08:20 Last Admin: 05/23/24 08:25 Dose: 4 mg Documented By: GANESH Imaging Data Radiologist's Impression: Chest X-Ray 05/23/24 08:07 XR chest 1V portable CLINICAL HISTORY: weakness COMPARISON STUDY: 01/17/2024. FINDINGS: There is stable mild cardiomegaly without pulmonary vascular congestion. No effusion, consolidation, or pneumothorax. There is a fracture at the proximal right humerus, better seen on the shoulder views today. IMPRESSION: Fracture proximal right humerus. No other acute findings. ACT 112: Negative or not required by law. Electronically signed by: Marlon Reid M.D. 05/23/2024 8:56 AM Shoulder X-Ray 05/23/24 08:19 XR shoulder RT min 2V routine CLINICAL HISTORY: seizure and right shoulder pain COMPARISON: 01/17/2024 FINDINGS: is a fracture of the proximal humerus involving the humeral head and surgical neck. There is lateral rotation of the humeral head fragment with mild medial displacement. No dislocation. IMPRESSION: Acute fracture proximal right humerus. ACT 112: Negative or not required by law. Electronically signed by: Marlon Reid M.D. 05/23/2024 8:[address] 05/23/24 08:20 CT head/brain wo con CLINICAL HISTORY: seizure. TECHNIQUE: Multiple axial CT images of the head were obtained without contrast. A dose lowering technique was utilized adhering to the principles of ALARA. CT DOSE: 703.85 mGy.cm COMPARISON: 01/17/2024 FINDINGS: No intracranial hemorrhage seen. No mass effect, midline shift, or hydrocephalus. No skull fracture seen. Visualized paranasal sinuses are clear. No mastoid effusion. IMPRESSION: No acute findings. ACT 112: Negative or not required by law. The above report was generated using voice recognition software. It may contain grammatical, syntax or spelling errors. Electronically signed by: Marlon Reid M.D. 05/23/2024 9:[address] 05/23/24 08:48 CT shoulder RT wo con HISTORY: 68 years-old Female seizure, abn xray acute right shoulder pain status post trauma COMPARISON: Shoulder radiographs of same day and also 01/17/2024. TECHNIQUE: Multiple axial CT images of the right shoulder were obtained without IV contrast. A dose lowering technique was used consistent with the principals of ALARA. FINDINGS: Mildly demineralized appearance of the bones. Postoperative changes of the humeral head. 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 The imaged ribs appear intact. Acute comminuted multi part displaced proximal humeral fracture involves the greater and lesser tuberosities, humeral head and surgical neck. The humeral head component is displaced posteriorly approximately 2.7 cm with dislocation of the glenohumeral articulation. The glenoid appears intact. There are several small intra-articular fracture fragments. The imaged lung carroll appear clear. Hemarthrosis of the shoulder with deep tissue edema. IMPRESSION: 1. Acute, comminuted and displaced multi part proximal humeral fracture with glenohumeral dislocation. 2. Posttraumatic hemarthrosis. ACT 112: Negative or not required by law. The above report was generated using voice recognition software. It may contain grammatical, syntax or spelling errors. Electronically signed by: Howard Alexander M.D. 05/23/2024 9:15 AM Shoulder X-Ray 05/23/24 13:03 XR shoulder RT 1V CLINICAL HISTORY: pain in shoulder COMPARISON: Exam earlier today FINDINGS: The fracture at the humeral head and surgical neck has grossly stable alignment. IMPRESSION: Grossly stable alignment. ACT 112: Negative or not required by law. Electronically signed by: Marlon Reid M.D. 05/23/2024 1:11 PM Discharge Plan Visit Data Chief Complaint: Seizure Stated Complaint: SEIZURE, POSSIBLE RT SHOULDER DISLOCATION ED Provider: Jose Navarro Discharge Problem: Seizure, Closed fracture dislocation of right shoulder, Generalized weakness Discharge Instructions Krames/Other Patient Handouts: ED Sedation Recovery Adult Forms Stand Alone Forms: [employer] Prescriptions Prescriptions: No Action hydroxyzine HCl 25 mg tablet 25 mg PO HS PRN (Reason: Insomnia) pravastatin 20 mg tablet 20 mg PO QAM ezetimibe [Zetia] 10 mg tablet 10 mg PO HS coenzyme Q10 [CoQ-10] 100 mg Capsule 100 mg PO DAILY multivitamin Tablet 1 tab PO DAILY Referrals Referrals: Julissa Carr DO [Primary Care Provider] -
--- NOTE | 2024-05-23 11:24 | Orthopedic Consultation ---
Date of Consultation May 23, 2024 Assessment & Plan (1) Closed fracture dislocation of right shoulder: I reviewed the x-rays and CT study with the patient and her family. The fracture of the proximal humerus is comminuted in nature with posterior displacement of the humeral head. I advised him that this will need to be reduced. Will try to do so in the emergency department under conscious sedation, however if this is unsuccessful we may need to take the patient to the OR to reduce it under general anesthesia. For the time being patient will be n.p.o. Pain control will be with IV medication. I did speak with the emergency department provider and he recommends that Dr. Barriga should contact the ED before coming up so that they could begin initiating conscious sedation with propofol so that the procedure could be performed soon as possible upon his arrival to the emergency department. As for her seizure, patient will need to be workup to find out what is causing these episodes. This is her second seizure since January. Medicine will be the admitting provider and we will have them consult neurology at their discretion. Plan Patient seen and evaluated. Had a seizure about a month ago and did injure her shoulder but basically returned to normal function. Radiographs from at that time showed normal shoulder. She had a seizure this morning. Her seizure etiology is unknown and is currently being worked up. She developed severe pain in her right shoulder. Came to the ER and was diagnosed with a fracture dislocation. There is no prior history of shoulder injuries. Her radial pulses are 1+. Her median radial and ulnar musculocutaneous motor and sensory's are intact. She can flex and extend her elbow gently against resistance radial pulses 1+ sensation intact. Rings are removed. There is tenderness swelling with slight deformity of the right shoulder. She can feel intact sensation. Skin is closed. Radiographs and CT scan show a locked posterior fracture dislocation of the humeral head. The entire head fragment is fractured off of the shaft at the anatomical neck and dislocated posteriorly. The report is noted. Discussed my findings with the patient and her family. I have recommended an attempted closed reduction. They agreed to proceed. An informed consent was obtained. The site was marked and a timeout was performed. Dr. reddy administered IV sedation. She had not eaten anything today. I attempted a gentle closure duction maneuver with some longitudinal traction and some direct pressure over the posterior head fragment without success. A post reduction radiograph showed that there was a continued posterior dislocation. Placed into a sling and swath. Plan: She will likely need either open reduction internal fixation or a arthroplasty. She will be admitted to the hospital for her seizure. She will need pain control. I will help connect her with either local or other resources to fixate or replace her shoulder. History of Present Illness Reason for Consultation: Right proximal humerus fracture/dislocation Requesting Physician: Huber Barriga MD History of Present Illness This 68 year old Female is seen in the ED after a possible seizure. Patient states that she was in bed this morning and then woke up with discomfort in the right shoulder described as severe. Patient also noted having bit her tongue and was incontinent. Patient did have a seizure recently. She is followed by [facility] neurology. The patient states she is not on any specific medications for seizure. Patient rated the pain as a 10 in the right shoulder and she cannot move the arm. Patient denies any other injury. No recent illness. Patient last saw neurology 2 weeks ago. Pt denies headache, fevers, chills, diaphoresis, visual changes, neck pain, chest pain, breathing difficulties, nausea, vomiting, numbness, weakness, or other complaints. 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 Allergies Allergy/AdvReac Type Severity Reaction Status Date / Time No Known Allergies Allergy Verified 05/23/24 09:35 Home Medications Medication Instructions Recorded Confirmed Type coenzyme Q10 100 mg capsule 100 mg PO DAILY 01/17/24 05/23/24 History (CoQ-10) ezetimibe 10 mg tablet (Zetia) 10 mg PO HS 01/17/24 05/23/24 History pravastatin 20 mg tablet 20 mg PO QAM 01/17/24 05/23/24 History hydroxyzine HCl 25 mg tablet 25 mg PO HS PRN Insomnia 04/11/24 05/23/24 History multivitamin 1 tab PO DAILY 05/23/24 05/23/24 History Patient History Medical History Hx of one miscarriage Surgical History H/O tooth extraction History of oral surgery H/O kidney donation S/P dilatation and curettage x 2 Family History Mother Bipolar disorder Cardiac disorder Depression Diabetes Gallbladder disease Myocardial infarction Hypertension Heart disease Father Cardiac disorder Diabetes Hypertension Myocardial infarction Heart disease Sister Cardiac disorder Myocardial infarction Brother Diabetes Hypertension Stroke Denies family history of Ovarian cancer Prostate cancer Breast cancer Colorectal cancer Social History Smoking Status: Former smoker Tobacco Type: Cigarettes Age Started Using Tobacco: 15; Age Quit Using Tobacco: 22; packs per day: 0.5; Second Hand Exposure: No; Do You Dip or Chew Tobacco: No; Hx Alcohol Use: No Hx Substance Use: No Preferred Language: Danish Communication Ability: Effective Visual Impairment: No Limitations Hearing Ability: Normal Public Affairs Manager Required: No Beliefs That Will Affect Care: None marital status: / Current Living Situation: Alone current occupational status: retired 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 Occasionally eats chicken caffeine: Yes (two cups coffee/day ) during the past year weight has: remained stable Dental Care, Regularly: Yes Physical Activity Frequency: Daily Seatbelt Use: always Sunscreen Use: Yes Assistive Devices: None Review of Systems Review of Systems: All systems reviewed & are unremarkable except as noted in Subjective Physical Exam Physical Exam: Right shoulder: Patient has exquisite tenderness to palpation over the proximal humerus. There is palpable abnormality with posterior subluxation and tenderness over the AC joint. Patient is able to reach terminal extension in her elbow but flexion is limited to 90 degrees. She has full range of motion of her wrist. Appropriate dexterity of her fingers. She is able to detect light sensation to touch over the pads of all digits. Chief Embalmer strength is equal bilaterally. Her peripheral pulses are 2+. She is neurovascularly intact in the right upper extremity. Results & Data Vital Signs (Past 12 Hours) Vital Signs Temp Pulse Pulse Resp BP BP Pulse Ox 05/23/24 09:55 58 L 18 152/70 H 100 05/23/24 08:58 68 05/23/24 08:07 95 05/23/24 07:55 18 05/23/24 07:55 05/23/24 07:55 36.6 C 63 18 154/95 H 99 O2 Del Method O2 Flow Rate 05/23/24 09:55 Nasal Cannula 2 05/23/24 08:58 05/23/24 08:07 05/23/24 07:55 05/23/24 07:55 Room Air 05/23/24 07:55 Diagnostic Findings Laboratory Results WBC 13.70 K/ul (4.8-10.8) H 05/23/24 08:15 RBC 4.25 M/uL (4.20-5.40) 05/23/24 08:15 Hgb 13.4 g/dl (12.0-16.0) 05/23/24 08:15 Hct 38.4 % (37.0-47.0) 05/23/24 08:15 MCV 90.4 fL (80.0-100.0) 05/23/24 08:15 MCH 31.5 pg (25.0-34.0) 05/23/24 08:15 MCHC 34.9 g/dL (32.0-36.0) 05/23/24 08:15 RDW Std Deviation 40.4 fL (36.4-46.3) 05/23/24 08:15 RDW Coeff of Nam 12.2 % (11.5-14.5) 05/23/24 08:15 Plt Count 255 K/uL (130-400) 05/23/24 08:15 MPV 9.9 fL (9.4-12.4) 05/23/24 08:15 Immature Gran % (Auto) 0.2 % 05/23/24 08:15 Neut % (Auto) 86.0 % 05/23/24 08:15 Lymph % (Auto) 8.3 % 05/23/24 08:15 [place] % (Auto) 5.0 % 05/23/24 08:15 Eos % (Auto) 0.2 % 05/23/24 08:15 Baso % (Auto) 0.3 % 05/23/24 08:15 Neut # (Auto) 11.78 K/uL (1.40-6.50) H 05/23/24 08:15 Lymph # (Auto) 1.14 K/uL (1.20-3.40) L 05/23/24 08:15 [place] # (Auto) 0.68 K/uL (0.11-0.59) H 05/23/24 08:15 Eos # (Auto) 0.03 K/uL (0.00-0.50) 05/23/24 08:15 Baso # (Auto) 0.04 K/uL (0.00-0.20) 05/23/24 08:15 Immature Gran # (Auto) 0.03 K/uL (0.01-0.20) 05/23/24 08:15 Sodium 140 mmol/L (136-145) 05/23/24 08:15 Potassium 4.1 mmol/L (3.5-5.1) 05/23/24 08:15 Chloride 105 mmol/L (98-107) 05/23/24 08:15 Carbon Dioxide 25 mmol/L (21-32) 05/23/24 08:15 Anion Gap 10 (3-11) 05/23/24 08:15 BUN 17 mg/dl (6-23) 05/23/24 08:15 Creatinine 0.73 mg/dl (0.6-1.2) 05/23/24 08:15 Est Cr Clr Drug Dosing 69.0 ml/min 05/23/24 08:15 eGFR 89.52 05/23/24 08:15 BUN/Creatinine Ratio 23.3 (10-20) H 05/23/24 08:15 Glucose 121 mg/dl (70-99(Fasting)) H 05/23/24 08:15 Calcium 9.5 mg/dl (8.6-10.3) 05/23/24 08:15 Magnesium 2.1 mg/dl (1.7-2.4) 05/23/24 08:15 Total Bilirubin 0.6 mg/dl (0.2-1.0) 05/23/24 08:15 AST 24 U/L (13-39) 05/23/24 08:15 ALT 16 U/L (7-52) 05/23/24 08:15 Alkaline Phosphatase 55 U/L (34-104) 05/23/24 08:15 Total Creatine Kinase 101 U/L (26-192) 05/23/24 08:15 Troponin I High Sens 8.3 pg/ml (0-14) 05/23/24 08:15 Total Protein 7.4 gm/dl (6.0-8.3) 05/23/24 08:15 Albumin 4.5 gm/dl (3.4-5.0) 05/23/24 08:15 Globulin 2.9 gm/dl (2.5-4.0) 05/23/24 08:15 Albumin/Globulin Ratio 1.6 (0.9-2) 05/23/24 08:15 TSH 3.713 uIu/ml (0.300-4.500) 05/23/24 08:15 Impressions Chest X-Ray 05/23/24 08:07 XR chest 1V portable CLINICAL HISTORY: weakness COMPARISON STUDY: 01/17/2024. FINDINGS: There is stable mild cardiomegaly without pulmonary vascular congestion. No effusion, consolidation, or pneumothorax. There is a fracture at the proximal right humerus, better seen on the shoulder views today. IMPRESSION: Fracture proximal right humerus. No other acute findings. ACT 112: Negative or not required by law. Electronically signed by: Marlon Reid M.D. 05/23/2024 8:56 AM Shoulder X-Ray 05/23/24 08:19 XR shoulder RT min 2V routine CLINICAL HISTORY: seizure and right shoulder pain COMPARISON: 01/17/2024 FINDINGS: is a fracture of the proximal humerus involving the humeral head and surgical neck. There is lateral rotation of the humeral head fragment with mild medial displacement. No dislocation. IMPRESSION: Acute fracture proximal right humerus. ACT 112: Negative or not required by law. Electronically signed by: Marlno Reid M.D. 05/23/2024 8:[address] 05/23/24 08:20 CT head/brain wo con CLINICAL HISTORY: seizure. TECHNIQUE: Multiple axial CT images of the head were obtained without contrast. A dose lowering technique was utilized adhering to the principles of ALARA. CT DOSE: 703.85 mGy.cm COMPARISON: 01/17/2024 FINDINGS: No intracranial hemorrhage seen. No mass effect, midline shift, or hydrocephalus. No skull fracture seen. Visualized paranasal sinuses are clear. No mastoid effusion. IMPRESSION: No acute findings. ACT 112: Negative or not required by law. The above report was generated using voice recognition software. It may contain grammatical, syntax or spelling errors. Electronically signed by: Marlon Reid M.D. 05/23/2024 9:[address] 05/23/24 08:48 CT shoulder RT wo con HISTORY: 68 years-old Female seizure, abn xray acute right shoulder pain status post trauma COMPARISON: Shoulder radiographs of same day and also 01/17/2024. TECHNIQUE: Multiple axial CT images of the right shoulder were obtained without IV contrast. A dose lowering technique was used consistent with the principals of VAIBHAV. FINDINGS: Mildly demineralized appearance of the bones. Postoperative changes of the humeral head. 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 The imaged ribs appear intact. Acute comminuted multi part displaced proximal humeral fracture involves the greater and lesser tuberosities, humeral head and surgical neck. The humeral head component is displaced posteriorly approximately 2.7 cm with dislocation of the glenohumeral articulation. The glenoid appears intact. There are several small intra-articular fracture fragments. The imaged lung carroll appear clear. Hemarthrosis of the shoulder with deep tissue edema. IMPRESSION: 1. Acute, comminuted and displaced multi part proximal humeral fracture with glenohumeral dislocation. 2. Posttraumatic hemarthrosis. ACT 112: Negative or not required by law. The above report was generated using voice recognition software. It may contain grammatical, syntax or spelling errors. Electronically signed by: Howard Alexander M.D. 05/23/2024 9:15 AM
--- NOTE | 2024-05-23 13:12 | XRay Report ---
XR shoulder RT 1V CLINICAL HISTORY: pain in shoulder COMPARISON: Exam earlier today FINDINGS: The fracture at the humeral head and surgical neck has grossly stable alignment. IMPRESSION: Grossly stable alignment. ACT 112: Negative or not required by law. Electronically signed by: Marlon Reid M.D. 05/23/2024 1:11 PM
[2024-05-23] MEDS: PROPOFOL IV EMULSION 10 MG/ML 20 ML VIAL IV PRN (13:33)
[2024-05-23] MEDS ORDERED: ONDANSETRON INJ 2 MG/ML 2 ML VIAL IV PRN (14:10)
--- NOTE | 2024-05-23 14:29 | Electrocardiogram Report ---
Test Reason : Blood Pressure : */* mmHG Vent. Rate : 67 BPM Atrial Rate : 67 BPM P-R Int : 152 ms QRS Dur : 64 ms QT Int : 410 ms P-R-T Axes : 76 17 63 degrees QTcB Int : 433 ms Sinus rhythm with Premature atrial complexes Abnormal ECG When compared with ECG of 17-Jan-2024 09:17, Premature atrial complexes are now Present Confirmed by Warren Smalls [id number] on 05/23/2024 2:28:53 PM Referred By: Confirmed By: Warren Smalls
--- NOTE | 2024-05-23 16:03 | Emergency Department Note ---
Pre Sedation Assessment Vital Signs Temp Pulse Pulse Resp BP BP Pulse Ox 05/23/24 15:12 79 20 133/79 95 05/23/24 15:06 77 96 05/23/24 15:05 136/83 05/23/24 15:05 136/83 05/23/24 15:05 136/83 05/23/24 15:00 137/83 05/23/24 15:00 137/83 05/23/24 14:55 140/77 05/23/24 14:55 140/77 05/23/24 14:54 79 96 05/23/24 14:51 75 97 05/23/24 14:50 138/86 05/23/24 14:50 138/86 05/23/24 14:50 138/86 05/23/24 14:40 149/93 H 05/23/24 14:40 149/93 H 05/23/24 14:40 149/93 H 05/23/24 14:40 78 18 05/23/24 14:40 78 18 97 05/23/24 14:39 78 95 05/23/24 14:36 150/101 H 05/23/24 14:36 150/101 H 05/23/24 14:30 139/77 05/23/24 14:30 139/77 05/23/24 14:25 149/87 H 05/23/24 14:21 79 97 05/23/24 14:20 152/84 H 05/23/24 14:20 152/84 H 05/23/24 14:20 152/84 H 05/23/24 14:18 83 96 05/23/24 14:15 141/80 H 05/23/24 14:15 141/80 H 05/23/24 14:15 141/80 H 05/23/24 14:15 141/80 H 05/23/24 14:12 82 96 05/23/24 14:10 146/79 H 05/23/24 14:10 146/79 H 05/23/24 14:10 146/79 H 05/23/24 13:55 121/92 05/23/24 13:54 83 21 97 05/23/24 13:51 77 10 L 98 05/23/24 13:50 160/88 H 05/23/24 13:50 160/88 H 05/23/24 13:50 160/88 H 05/23/24 13:48 82 21 99 05/23/24 13:46 147/91 H 05/23/24 13:42 171/94 H 05/23/24 13:42 171/94 H 05/23/24 13:39 79 23 98 05/23/24 13:36 167/82 H 05/23/24 13:33 75 28 H 99 05/23/24 13:30 162/93 H 05/23/24 13:30 162/93 H 05/23/24 13:30 77 16 162/93 H 100 05/23/24 13:25 78 16 126/90 100 05/23/24 13:20 79 16 134/90 98 05/23/24 13:15 75 16 128/82 98 05/23/24 13:12 87 16 148/87 H 100 05/23/24 13:07 79 16 163/77 H 100 05/23/24 13:05 78 05/23/24 13:02 80 16 172/90 H 100 05/23/24 13:00 76 18 140/93 95 05/23/24 12:57 77 16 170/136 H 100 05/23/24 12:52 79 20 166/78 H 100 05/23/24 12:00 77 99 05/23/24 11:51 73 98 05/23/24 11:30 80 97 05/23/24 11:30 151/85 H 05/23/24 11:30 151/85 H 05/23/24 11:30 151/85 H 05/23/24 11:12 78 97 05/23/24 11:03 79 97 05/23/24 11:00 146/87 H 05/23/24 11:00 77 18 146/87 H 97 05/23/24 10:45 80 98 05/23/24 10:18 68 97 05/23/24 10:00 77 23 99 05/23/24 10:00 152/81 H 05/23/24 10:00 152/81 H 05/23/24 10:00 152/81 H 05/23/24 09:55 58 L 18 152/70 H 100 05/23/24 09:54 79 20 99 05/23/24 09:33 72 13 98 05/23/24 09:30 152/70 H 05/23/24 09:18 80 14 99 05/23/24 09:09 70 17 99 05/23/24 08:58 68 05/23/24 08:07 95 05/23/24 07:55 18 05/23/24 07:55 05/23/24 07:55 36.6 C 63 18 154/95 H 99 O2 Del Method O2 Flow Rate 05/23/24 15:12 Nasal Cannula 2 05/23/24 15:06 05/23/24 15:05 05/23/24 15:05 05/23/24 15:05 05/23/24 15:00 05/23/24 15:00 05/23/24 14:55 05/23/24 14:55 05/23/24 14:54 05/23/24 14:51 05/23/24 14:50 05/23/24 14:50 05/23/24 14:50 05/23/24 14:40 05/23/24 14:40 05/23/24 14:40 05/23/24 14:40 05/23/24 14:40 Nasal Cannula 2 05/23/24 14:39 05/23/24 14:36 05/23/24 14:36 05/23/24 14:30 05/23/24 14:30 05/23/24 14:25 05/23/24 14:21 05/23/24 14:20 05/23/24 14:20 05/23/24 14:20 05/23/24 14:18 05/23/24 14:15 05/23/24 14:15 05/23/24 14:15 05/23/24 14:15 05/23/24 14:12 05/23/24 14:10 05/23/24 14:10 05/23/24 14:10 05/23/24 13:55 05/23/24 13:54 05/23/24 13:51 05/23/24 13:50 05/23/24 13:50 05/23/24 13:50 05/23/24 13:48 05/23/24 13:46 05/23/24 13:42 05/23/24 13:42 05/23/24 13:39 05/23/24 13:36 05/23/24 13:33 05/23/24 13:30 05/23/24 13:30 05/23/24 13:30 Nasal Cannula 2 05/23/24 13:25 Nasal Cannula 2 05/23/24 13:20 Nasal Cannula 2 05/23/24 13:15 Nasal Cannula 2 05/23/24 13:12 Nasal Cannula 4 05/23/24 13:07 Non-rebreather 15 05/23/24 13:05 05/23/24 13:02 Non-rebreather 15 05/23/24 13:00 Nasal Cannula 2 05/23/24 12:57 Non-rebreather 15 05/23/24 12:52 Non-rebreather 15 05/23/24 12:00 05/23/24 11:51 05/23/24 11:30 05/23/24 11:30 05/23/24 11:30 05/23/24 11:30 05/23/24 11:12 05/23/24 11:03 05/23/24 11:00 05/23/24 11:00 Room Air 05/23/24 10:45 05/23/24 10:18 05/23/24 10:00 05/23/24 10:00 05/23/24 10:00 05/23/24 10:00 05/23/24 09:55 Nasal Cannula 2 05/23/24 09:54 05/23/24 09:33 05/23/24 09:30 05/23/24 09:18 05/23/24 09:09 05/23/24 08:58 05/23/24 08:07 05/23/24 07:55 05/23/24 07:55 Room Air 05/23/24 07:55 Pre-Sedation Airway Assessment Smoking Status: Former smoker Hx Sleep Apnea: No Short, Thick Neck: No Thyromental Distance: > or= 3.5 Finger Breadths Oral Cavity: + WNL Mallampati Class: II ASA: ASA2 NPO Status Date of Last Intake of Fluids: 05/22/24 Time of Last Intake of Fluids: 21:00 Last Oral Intake of Fluids Comment: water Date of Last Intake of Solid Food: 05/22/24 Time of Last Intake of Solid Foods: 16:30 Notes The planned sedation has been discussed with the patient. Informed Consent was obtained. I have identified the patient, determined the appropriateness of sedation and have assessed the patient immediately prior to the procedure. All medicine(s) and interventions are by my order.
--- NOTE | 2024-05-23 16:04 | Emergency Department Note ---
Post Sedation Assessment Vital Signs Temp Pulse Pulse Resp BP BP Pulse Ox 05/23/24 15:12 79 20 133/79 95 05/23/24 15:06 77 96 05/23/24 15:05 136/83 05/23/24 15:05 136/83 05/23/24 15:05 136/83 05/23/24 15:00 137/83 05/23/24 15:00 137/83 05/23/24 14:55 140/77 05/23/24 14:55 140/77 05/23/24 14:54 79 96 05/23/24 14:51 75 97 05/23/24 14:50 138/86 05/23/24 14:50 138/86 05/23/24 14:50 138/86 05/23/24 14:40 149/93 H 05/23/24 14:40 149/93 H 05/23/24 14:40 149/93 H 05/23/24 14:40 78 18 05/23/24 14:40 78 18 97 05/23/24 14:39 78 95 05/23/24 14:36 150/101 H 05/23/24 14:36 150/101 H 05/23/24 14:30 139/77 05/23/24 14:30 139/77 05/23/24 14:25 149/87 H 05/23/24 14:21 79 97 05/23/24 14:20 152/84 H 05/23/24 14:20 152/84 H 05/23/24 14:20 152/84 H 05/23/24 14:18 83 96 05/23/24 14:15 141/80 H 05/23/24 14:15 141/80 H 05/23/24 14:15 141/80 H 05/23/24 14:15 141/80 H 05/23/24 14:12 82 96 05/23/24 14:10 146/79 H 05/23/24 14:10 146/79 H 05/23/24 14:10 146/79 H 05/23/24 13:55 121/92 05/23/24 13:54 83 21 97 05/23/24 13:51 77 10 L 98 05/23/24 13:50 160/88 H 05/23/24 13:50 160/88 H 05/23/24 13:50 160/88 H 05/23/24 13:48 82 21 99 05/23/24 13:46 147/91 H 05/23/24 13:42 171/94 H 05/23/24 13:42 171/94 H 05/23/24 13:39 79 23 98 05/23/24 13:36 167/82 H 05/23/24 13:33 75 28 H 99 05/23/24 13:30 162/93 H 05/23/24 13:30 162/93 H 05/23/24 13:30 77 16 162/93 H 100 05/23/24 13:25 78 16 126/90 100 05/23/24 13:20 79 16 134/90 98 05/23/24 13:15 75 16 128/82 98 05/23/24 13:12 87 16 148/87 H 100 05/23/24 13:07 79 16 163/77 H 100 05/23/24 13:05 78 05/23/24 13:02 80 16 172/90 H 100 05/23/24 13:00 76 18 140/93 95 05/23/24 12:57 77 16 170/136 H 100 05/23/24 12:52 79 20 166/78 H 100 05/23/24 12:00 77 99 05/23/24 11:51 73 98 05/23/24 11:30 80 97 05/23/24 11:30 151/85 H 05/23/24 11:30 151/85 H 05/23/24 11:30 151/85 H 05/23/24 11:12 78 97 05/23/24 11:03 79 97 05/23/24 11:00 146/87 H 05/23/24 11:00 77 18 146/87 H 97 05/23/24 10:45 80 98 05/23/24 10:18 68 97 05/23/24 10:00 77 23 99 05/23/24 10:00 152/81 H 05/23/24 10:00 152/81 H 05/23/24 10:00 152/81 H 05/23/24 09:55 58 L 18 152/70 H 100 05/23/24 09:54 79 20 99 05/23/24 09:33 72 13 98 05/23/24 09:30 152/70 H 05/23/24 09:18 80 14 99 05/23/24 09:09 70 17 99 05/23/24 08:58 68 05/23/24 08:07 95 05/23/24 07:55 18 05/23/24 07:55 05/23/24 07:55 36.6 C 63 18 154/95 H 99 O2 Del Method O2 Flow Rate 05/23/24 15:12 Nasal Cannula 2 05/23/24 15:06 05/23/24 15:05 05/23/24 15:05 05/23/24 15:05 05/23/24 15:00 05/23/24 15:00 05/23/24 14:55 05/23/24 14:55 05/23/24 14:54 05/23/24 14:51 05/23/24 14:50 05/23/24 14:50 05/23/24 14:50 05/23/24 14:40 05/23/24 14:40 05/23/24 14:40 05/23/24 14:40 05/23/24 14:40 Nasal Cannula 2 05/23/24 14:39 05/23/24 14:36 05/23/24 14:36 05/23/24 14:30 05/23/24 14:30 05/23/24 14:25 05/23/24 14:21 05/23/24 14:20 05/23/24 14:20 05/23/24 14:20 05/23/24 14:18 05/23/24 14:15 05/23/24 14:15 05/23/24 14:15 05/23/24 14:15 05/23/24 14:12 05/23/24 14:10 05/23/24 14:10 05/23/24 14:10 05/23/24 13:55 05/23/24 13:54 05/23/24 13:51 05/23/24 13:50 05/23/24 13:50 05/23/24 13:50 05/23/24 13:48 05/23/24 13:46 05/23/24 13:42 05/23/24 13:42 05/23/24 13:39 05/23/24 13:36 05/23/24 13:33 05/23/24 13:30 05/23/24 13:30 05/23/24 13:30 Nasal Cannula 2 05/23/24 13:25 Nasal Cannula 2 05/23/24 13:20 Nasal Cannula 2 05/23/24 13:15 Nasal Cannula 2 05/23/24 13:12 Nasal Cannula 4 05/23/24 13:07 Non-rebreather 15 05/23/24 13:05 05/23/24 13:02 Non-rebreather 15 05/23/24 13:00 Nasal Cannula 2 05/23/24 12:57 Non-rebreather 15 05/23/24 12:52 Non-rebreather 15 05/23/24 12:00 05/23/24 11:51 05/23/24 11:30 05/23/24 11:30 05/23/24 11:30 05/23/24 11:30 05/23/24 11:12 05/23/24 11:03 05/23/24 11:00 05/23/24 11:00 Room Air 05/23/24 10:45 05/23/24 10:18 05/23/24 10:00 05/23/24 10:00 05/23/24 10:00 05/23/24 10:00 05/23/24 09:55 Nasal Cannula 2 05/23/24 09:54 05/23/24 09:33 05/23/24 09:30 05/23/24 09:18 05/23/24 09:09 05/23/24 08:58 05/23/24 08:07 05/23/24 07:55 05/23/24 07:55 Room Air 05/23/24 07:55 Recovery Score Activity: Moves 4 extremities Respiration: Deep Breath/Cough Circulation: +/-20% PreAnes Value Consciousness: Fully Awake Oxygen Saturation: O2 needed for >90% Post Anesthesia Score: 9 Discharge Sedation Level of Care: Fast Track Phase II Unexpected Event: None Post Sedation Plan On clinical assessment, the patient appears to have tolerated the sedation without complications. Patient is recovering as anticipated. Patient will continue to be monitored by nursing and may be discharged when sedation discharge criteria are met per below protocol. Upon Completions of procedure up to 15 minutes continue every 5 minute vital signs and the P.A.R. score; then discharge to a Phase I or Fast Track to Phase II per the following guidelines: * Discharge Patient to appropriate Phase II area if PAR is 8 or greater or return to pre- procedure baseline. The post - procedure orders will be as directed. * If PAR score is less than 8 or not return to pre-procedure baseline then patient will follow Phase I monitoring till PAR is reached for Phase II. The Phase I may be done in procedure room or may call to secure a Phase I area. * If naloxone or flumazenil are used for reversal, hold in Phase I for continued monitoring from when last reversal dose was given for a minimum of 60 minutes or longer pending the nurse and/or physician discretion of patient condition before discharge to Phase II. Please call the Sedation Physician to re-evaluate and complete post-note for discharge to Phase II area. Do NOT discharge from procedure sedation or Phase 1 until post- sedation evaluation note is complete by procedure /sedation MD Sedation Discharge Instructions to be given to the patient at discharge to home. Sedation Data Sedation Times Sedation Start Date: 05/23/24 Sedation Start Time: 12:52 Sedation End Date: 05/23/24 Sedation End Time: 13:30 Total Sedation Time: 38 Procedure Times Procedure Start Time:: 12:54 Procedure End Time: 13:01
[2024-05-23] MEDS: EZETIMIBE 10 MG TAB PO SCH (21:01)
[2024-05-24] MEDS: PRAVASTATIN SOD 20 MG TAB PO SCH (07:31)
[2024-05-24] MEDS: MULTIVITAMIN TAB PO SCH (07:31)
[2024-05-24 07:32] LABS: BUN Creatinine Ratio 19.7 (10-20); C Reactive Protein 3.16 mg/dl (0-0.5); Calcium 7.9 mg/dl (8.6-10.3); Chol HDL Ratio 2.7 (0-5); Potassium 3.9 mmol/L (3.5-5.1)
[2024-05-24 07:34] LABS: Hematocrit (blood only) 29.8 % (37.0-47.0); Mean Corpuscular Hemoglobin 31.2 pg (25.0-34.0); Mean Corpuscular Hgb Conc 33.6 g/dL (32.0-36.0); Mean Corpuscular Volume 92.8 fL (80.0-100.0); Platelet Count 196 K/uL (130-400); RDW Coefficient of Variation 12.4 % (11.5-14.5); RDW Standard Deviation 42.7 fL (36.4-46.3); Red Blood Count 3.21 M/uL (4.20-5.40); White Blood Count 7.22 K/ul (4.8-10.8)
--- NOTE | 2024-05-24 07:41 | Neurology Consultation ---
Date of Consultation May 24, 2024 Assessment & Plan (1) Nocturnal seizure: History of Present Illness Attending Physician: Harris Calixto History of Present Illness S: pt this morning doing well. no further seizure. pt with rt humerus fx. pending surgery. loaded with keppra from ED. chart reviewed. ED note: Patient presented because of seizure. Clinical history and physical findings consistent with the same. X-ray imaging was performed and the patient appears to have a fracture dislocation of the right shoulder. This was confirmed on CT imaging. Head CT was unremarkable. Patient has slight leukocytosis which I suspect is related to the seizure episode. Patient was treated with IV Dilaudid. I did place a consult with neurology, Dr. Baxter. He knows the patient well. He did recommend a Keppra load and 500 mg twice daily. This was done. Discussed with ED pharmacist. I did place consult with on-call orthopedics, Dr. Barriga. Discussed the case. He noted he will present to the ER and help with attempt at reduction. His ROCÍO did evaluate the patient in the emergency department. He did present and I did perform sedation and he did perform an attempted reduction. He noted this was unsuccessful and the patient would need surgical intervention. He is going to discuss this with his orthopedic colleagues for intervention. He did discuss this with the patient and family. Patient will require further evaluation and management in the hospital. Consultation was made with Dr. Calixto, of the [facility] hospitalist service. Case discussed and diagnostics were reviewed. Patient was evaluated in the ER and admitted for further management. Allergies Allergy/AdvReac Type Severity Reaction Status Date / Time No Known Allergies Allergy Verified 05/23/24 09:35 Home Medications Medication Instructions Recorded Confirmed Type coenzyme Q10 100 mg capsule 100 mg PO DAILY 01/17/24 05/23/24 History (CoQ-10) ezetimibe 10 mg tablet (Zetia) 10 mg PO HS 01/17/24 05/23/24 History pravastatin 20 mg tablet 20 mg PO QAM 01/17/24 05/23/24 History hydroxyzine HCl 25 mg tablet 25 mg PO HS PRN Insomnia 04/11/24 05/23/24 History multivitamin 1 tab PO DAILY 05/23/24 05/23/24 History Patient History Medical History Hx of one miscarriage Surgical History H/O tooth extraction History of oral surgery H/O kidney donation S/P dilatation and curettage x 2 Family History Mother Bipolar disorder Cardiac disorder Depression Diabetes Gallbladder disease Myocardial infarction Hypertension Heart disease Father Cardiac disorder Diabetes Hypertension Myocardial infarction Heart disease Sister Cardiac disorder Myocardial infarction Brother Diabetes Hypertension Stroke Denies family history of Ovarian cancer Prostate cancer Breast cancer Colorectal cancer Social History Smoking Status: Former smoker Tobacco Type: Cigarettes Age Started Using Tobacco: 15; Age Quit Using Tobacco: 22; packs per day: 0.5; Smoking End Date: "at 15 years old"; Second Hand Exposure: No; Do You Dip or Chew Tobacco: No; Hx Alcohol Use: No Hx Substance Use: No Preferred Language: Portuguese Communication Ability: Effective Visual Impairment: No Limitations Hearing Ability: Normal Engraving Press Operator Required: No Beliefs That Will Affect Care: None marital status: / Current Living Situation: Alone current occupational status: retired 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 Occasionally eats chicken caffeine: Yes (two cups coffee/day ) during the past year weight has: remained stable Dental Care, Regularly: Yes Physical Activity Frequency: Daily Seatbelt Use: always Sunscreen Use: Yes Assistive Devices: Glasses Exam (Neuro) Physical Exam: HEENT: normocephalic grossly Neuro: Mental: AOx4, fluent speech, normal comprehension, no apraxia, no L/R confusion, no neglect CN: PERRL, Full EOM, symmetric face, Motor: No abnormal movements, normal tone, 5/5 t/o bilaterally except rt arm not tested. Coord: intact Impression: 68 yo female with seizure event and rt humerus fx. clinically stable. Recommendations: ok to have the orthopedic surgery start keppra 500mg po bid f/u as outpt as planned. call again if new question. Chart reviewed I have spent more than 50% educating patient about potential diagnosis and neurological evaluation and coordinating care with patient's treatment team. Total time spent (including chart review and coordination of care): 45 min (this includes chart review). Results & Data Vital Signs (Past 12 Hours) Vital Signs Temp Pulse Pulse Resp BP Pulse Ox O2 Del Method 05/24/24 07:21 63 05/24/24 04:00 36.8 C 75 18 119/65 97 Nasal Cannula 05/24/24 00:00 36.9 C 69 18 119/64 96 Nasal Cannula 05/23/24 21:52 75 05/23/24 20:00 36.9 C 63 17 146/67 H 97 Nasal Cannula 05/23/24 19:40 Nasal Cannula O2 Flow Rate 05/24/24 07:21 05/24/24 04:00 1 05/24/24 00:00 2 05/23/24 21:52 05/23/24 20:00 2 05/23/24 19:40 2 PG Care Time/CCT Total # of Minutes Spent Total Time Spent with Patient: Total time spent is greater than 50% in coordination of care (as documented) at patient's floor/unit and/or counseling patient: Coding Level of Care Code 37334 IN/OBS CONSULT LVL 3,45M Diagnoses Nocturnal seizure R56.9
[2024-05-24] MEDS: levETIRAcetam 500 MG TAB PO SCH (09:00)
[2024-05-24] MEDS ORDERED: NON-FORMULARY MEDICATION (Coenzyme Q10 [Coq-10] 100 mg Capsule) PO SCH (09:00)
--- NOTE | 2024-05-24 09:22 | History & Physical Report ---
Date of Service May 23, 2024 Assessment & Plan (1) Seizure: Plan: Nocturnal seizure in a 68 yo female resulting in a closed acute humeral fracture Admitted to PCU Consulted neuro. will place on keppra: loaing dose placed. will monitor (2) Closed fracture dislocation of right shoulder: Plan: contuled ortho. plan for surgery on Sunday Plan Dyslipidemia: resumed home meds Admission and Anticipated Discharge Date Admission Date: May 23, 2024 History of Present Illness Chief Complaint: seizure Primary Care Provider: Julissa Carr DO 68-year-old female presenting to the ED for seizure like activity.While in bed, patient awoke with severe right shoulder pain. Patient states she bit her tongue and was incontinent. 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 Allergies Allergy/AdvReac Type Severity Reaction Status Date / Time No Known Allergies Allergy Verified 05/23/24 09:35 Home Medications Medication Instructions Recorded Confirmed Type coenzyme Q10 100 mg capsule 100 mg PO DAILY 01/17/24 05/23/24 History (CoQ-10) ezetimibe 10 mg tablet (Zetia) 10 mg PO HS 01/17/24 05/23/24 History pravastatin 20 mg tablet 20 mg PO QAM 01/17/24 05/23/24 History hydroxyzine HCl 25 mg tablet 25 mg PO HS PRN Insomnia 04/11/24 05/23/24 History multivitamin 1 tab PO DAILY 05/23/24 05/23/24 History Past Med/Surg History Problem List Closed fracture dislocation of right shoulder (Acute ~05/23/24) Acute, comminuted and displaced multi part right proximal humeral fracture with glenohumeral dislocation. Generalized weakness (Acute) Closed fracture dislocation of right shoulder (Acute 05/23/24) Acute, comminuted and displaced multi part right proximal humeral fracture with glenohumeral dislocation after potential seizure per orthopedic note. Seizure (Acute) Leg weakness Hypertension Nocturnal seizure (01/2024) Acquired solitary kidney Allen's paralysis Insomnia OAB (overactive bladder) Sensorineural hearing loss (SNHL) of left ear Tinnitus of left ear Dyslipidemia Seborrheic keratoses Vitamin D deficiency Medical History Hx of one miscarriage Surgical History H/O tooth extraction History of oral surgery H/O kidney donation S/P dilatation and curettage x 2 Family History Mother Bipolar disorder Cardiac disorder Depression Diabetes Gallbladder disease Myocardial infarction Hypertension Heart disease Father Cardiac disorder Diabetes Hypertension Myocardial infarction Heart disease Sister Cardiac disorder Myocardial infarction Brother Diabetes Hypertension Stroke Denies family history of Ovarian cancer Prostate cancer Breast cancer Colorectal cancer Social History Smoking Status: Former smoker Tobacco Type: Cigarettes Age Started Using Tobacco: 15; Age Quit Using Tobacco: 22; packs per day: 0.5; Smoking End Date: "at 15 years old"; Second Hand Exposure: No; Do You Dip or Chew Tobacco: No; Hx Alcohol Use: No Hx Substance Use: No Preferred Language: Kyrgyz Communication Ability: Effective Visual Impairment: No Limitations Hearing Ability: Normal Teacher Adventure Education Required: No Beliefs That Will Affect Care: None marital status: / Current Living Situation: Alone current occupational status: retired 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 Occasionally eats chicken caffeine: Yes (two cups coffee/day ) during the past year weight has: remained stable Dental Care, Regularly: Yes Physical Activity Frequency: Daily Seatbelt Use: always Sunscreen Use: Yes Assistive Devices: Glasses Review of Systems Review of Systems: All systems reviewed & are unremarkable except as noted in HPI & below Physical Exam Physical Exam: General: NAD, right arm in sling Skin: Warm and dry, without rashes or lesions Head: Normocephalic, atraumatic Eyes: PERRL, ENT: External ear and ear canal without swelling; nose atraumatic; good dentition, tongue normal appearance Neck: Supple, no LAD; no meningeal signs Cardio: RRR, no M/G/R, S1 and S2 normal Resp: No respiratory distress, Lungs CTA in all lobes bilaterally, no wheezes, rales, or rhonchi Abdomen: Soft, symmetric, nontender; No masses or hepatosplenomegaly; Bowel sounds normoactive MSK: No deformities, full ROM throughout; pulses palpable and equal; no edema. Neuro: CN II-XII normal. Results & Data Results & Data Vital Signs (Past 12 Hours) Vital Signs Temp Pulse Pulse Resp BP Pulse Ox O2 Del Method 05/24/24 07:39 37.1 C 65 18 124/75 94 Room Air 05/24/24 07:21 63 05/24/24 04:00 36.8 C 75 18 119/65 97 Nasal Cannula 05/24/24 00:00 36.9 C 69 18 119/64 96 Nasal Cannula 05/23/24 21:52 75 O2 Flow Rate 05/24/24 07:39 05/24/24 07:21 05/24/24 04:00 1 05/24/24 00:00 2 05/23/24 21:52 PG Care Time/CCT Total # of Minutes Spent Total Time Spent with Patient: Total time spent is greater than 50% in coordination of care (as documented) at patient's floor/unit and/or counseling patient: Coding Level of Care Code 57736 INT INP/OBS CARE 3/75MIN Diagnoses Seizure R56.9 Closed fracture dislocation of right shoulder S42.91XA Time Spent (min) 75 Comment discussed with ER provider/ chart round, interview with patient/ discuss with specialist
[2024-05-24] MEDS: ENOXAPARIN INJ 30 MG/0.3 ML SYR SQ SCH (10:53)
[2024-05-24 16:35] LABS: Appearance Urine Clear (Clear); Bacteria Urine Automated None Seen (None Seen); Bilirubin Urine Negative (Negative); Blood Urine Negative (Negative); Cast Urine Automated 0-2 /lpf (0-2); Color Urine Yellow; Epithelial Cell Urine Auto 0-2 /hpf (0-2); Glucose Urine UA Negative (Negative); Ketones Urine 1+ (Negative); Leukocyte Esterase Urine 1+ (Negative); Nitrite Urine Negative (Negative); Protein Urine Trace (Negative); RBC Urine Automated 0-2 /hpf (0-2); Specific Gravity Urine 1.024 (1.000-1.030); Urobilinogen Urine Negative (Negative); WBC Urine Automated 21-50 /hpf (0-5); pH Urine 5.5 (4.5-7.5)
[2024-05-24] MEDS: HYDROmorphone INJ 1 MG/ML SYRINGE IV PRN (17:04)
[2024-05-24] MEDS: ACETAMINOPHEN 325 MG TAB PO SCH (17:04)
[2024-05-24] MEDS: HYDROmorphone INJ 0.5 MG/0.5 ML SYR IV PRN (19:44)
--- NOTE | 2024-05-24 22:30 | Hospitalist Progress Note ---
Date of Service May 24, 2024 Assessment & Plan (1) Seizure: Plan: Nocturnal seizure in a 68 yo female resulting in a closed acute humeral fracture Admitted to PCU Consulted neuro. Now on Keppra BID reviewed renal funtion: normal (2) Closed fracture dislocation of right shoulder: Plan: consulted ortho. plan for surgery on Sunday Increased pain medicine: dilaudid 1 mg for severe pain and 0.5 mg for moderate pain Added tylenol QID. On dvt Propylaxis Plan Dyslipidemia: resumed home meds Admission and Anticipated Discharge Date Admission Date: May 23, 2024 Subjective 68 yo female reports no new symptoms. She continues to have pain in her right shoulder. Review of Systems Review of Systems: All systems reviewed & are unremarkable except as noted in HPI & below Physical Exam Physical Exam: General: NAD, right arm in sling Cardio: RRR, no M/G/R, S1 and S2 normal Resp: Lungs CTA B/L Abdomen: Soft, Neuro: CN II-XII normal. Results & Data Results & Data Vital Signs (Past 12 Hours) Vital Signs Temp Pulse Pulse Resp BP Pulse Ox O2 Del Method 05/24/24 20:00 37.4 C 74 86 H 136/63 Nasal Cannula 05/24/24 15:43 37.5 C 71 18 147/75 H 92 Room Air 05/24/24 15:15 69 05/24/24 11:03 36.8 C 66 18 116/67 90 Room Air O2 Flow Rate 05/24/24 20:00 2 05/24/24 15:43 05/24/24 15:15 05/24/24 11:03 PG Care Time/CCT Total # of Minutes Spent Total Time Spent with Patient: Total time spent is greater than 50% in coordination of care (as documented) at patient's floor/unit and/or counseling patient: Coding Level of Care Code 09981 SUB INP/OBS CARE 3/50MIN Diagnoses Seizure R56.9 Closed fracture dislocation of right shoulder S42.91XA
[2024-05-25 06:57] LABS: Hematocrit (blood only) 30.5 % (37.0-47.0); Hemoglobin 10.3 g/dl (12.0-16.0); Mean Corpuscular Hemoglobin 31.2 pg (25.0-34.0); Mean Corpuscular Hgb Conc 33.8 g/dL (32.0-36.0); Mean Corpuscular Volume 92.4 fL (80.0-100.0); Mean Platelet Volume 10.1 fL (9.4-12.4); Platelet Count 191 K/uL (130-400); RDW Coefficient of Variation 12.2 % (11.5-14.5); RDW Standard Deviation 41.2 fL (36.4-46.3); White Blood Count 7.29 K/ul (4.8-10.8)
[2024-05-25 07:24] LABS: BUN Creatinine Ratio 20.3 (10-20); Calcium 8.4 mg/dl (8.6-10.3); Creatinine Clr Calc Pharmacy 78.8 ml/min; Potassium 3.5 mmol/L (3.5-5.1)
[2024-05-25] MEDS: POLYETHYLENE (MIRALAX) 17 GM PACK PO SCH ×2 (09:58→20:35)
[2024-05-25] MEDS: oxyCODONE HCL 15 MG TABCR (OxyCONTIN) PO SCH (20:34)
--- NOTE | 2024-05-25 22:29 | Hospitalist Progress Note ---
Date of Service May 25, 2024 Assessment & Plan (1) Seizure: Plan: Nocturnal seizure in a 68 yo female resulting in a closed acute humeral fracture Admitted to PCU Consulted neuro. Now on Keppra BID reviewed renal funtion on 05/25: normal vitals stable (2) Closed fracture dislocation of right shoulder: Plan: consulted ortho. plan for surgery on Sunday Increased pain medicine: dilaudid 1 mg for severe pain and 0.5 mg for moderate pain Added tylenol QID. will add oxycontin extrended release for pain control especially when patient is resting. On dvt Propylaxis Plan Dyslipidemia: resumed home meds Admission and Anticipated Discharge Date Admission Date: May 23, 2024 Subjective Patient reports no new symptoms. Patient continues to have pain in her shoulder. Physical Exam Physical Exam: General: NAD, right arm in sling Cardio: RRR, no M/G/R, S1 and S2 normal Resp: Lungs CTA B/L Abdomen: Soft, Neuro: CN II-XII normal. Results & Data Results & Data Vital Signs (Past 12 Hours) Vital Signs Temp Pulse Pulse Resp BP Pulse Ox O2 Del Method 05/25/24 20:00 37.1 C 68 17 136/78 90 Room Air 05/25/24 16:00 36.8 C 74 18 137/66 91 Room Air 05/25/24 15:04 74 05/25/24 11:23 36.8 C 68 18 146/79 H 92 Nasal Cannula O2 Flow Rate 05/25/24 20:00 05/25/24 16:00 05/25/24 15:04 05/25/24 11:23 1 PG Care Time/CCT Total # of Minutes Spent Total Time Spent with Patient: Total time spent is greater than 50% in coordination of care (as documented) at patient's floor/unit and/or counseling patient: Coding Level of Care Code 33742 SUB INP/OBS CARE 3/50MIN Diagnoses Seizure R56.9 Closed fracture dislocation of right shoulder S42.91XA
--- NOTE | 2024-05-26 07:55 | Orthopedic Progress Note ---
Date of Service May 26, 2024 Assessment & Plan (1) Closed fracture dislocation of right shoulder: She is npo and wants to proceed with surgery today, specifically right shoulder arthroplasty today with Dr. Anaya. Continue sling RUE and pain control. Subjective .68 year old patient admitted 05/23 s/p seizure and left proximal humerus fracture/dislocation. She said this happened in bed and she was in bed when she woke up. So she is not sure how she injured the shoulder. Starting to feel some paraesthesias in the right hand, and complaining of right shoulder pain. Review of Systems All systems reviewed & are unremarkable except as noted in HPI & below. Physical Exam . alert, NAD. VSS Right arm: sling in place. +swelling and tenderness around the shoulder. Able to flex and extend her wrist, fingers appropriately. Palpable radial pulse. Sensation intact to touch at this time. Results & Data Results & Data Laboratory Results . Diagnostic Findings . PG Care Time/CCT Total # of Minutes Spent Total Time Spent with Patient: Total time spent is greater than 50% in coordination of care (as documented) at patient's floor/unit and/or counseling patient: Coding Level of Care Code 16521 SUB INP/OBS CARE 2/35MIN Diagnoses Closed fracture dislocation of right shoulder S42.91XA
--- NOTE | 2024-05-26 07:58 | Anesthesiology Consultation ---
Date of Service May 26, 2024 Assessment & Plan Chart Review Chart Review: Acceptable Risk for Surgery and Patient NOT seen in Pre Admission Testing History Surgery Operation Date: 05/26/24 08:20 Proposed Procedures p Right Reverse Total Shoulder Arthroplasty - Pee Anaya, Height/Weight Height: 5 ft 6 in Weight: 65.3 kg Allergies Allergy/AdvReac Type Severity Reaction Status Date / Time No Known Allergies Allergy Verified 05/23/24 09:35 Medications Home Medications Medication Instructions Recorded Confirmed Last Taken coenzyme Q10 100 mg capsule 100 mg PO DAILY 01/17/24 05/23/24 05/22/24 (CoQ-10) ezetimibe 10 mg tablet (Zetia) 10 mg PO HS 01/17/24 05/23/24 05/22/24 pravastatin 20 mg tablet 20 mg PO QAM 01/17/24 05/23/24 05/22/24 hydroxyzine HCl 25 mg tablet 25 mg PO HS PRN Insomnia 04/11/24 05/23/24 Unknown multivitamin 1 tab PO DAILY 05/23/24 05/23/24 05/22/24 Active Medications Generic Name Dose Route Start Last Admin Trade Name Freq PRN Reason Stop Dose Admin Acetaminophen 650 mg 05/24/24 17:00 05/25/24 20:34 Acetaminophen 325 Mg Tab PO 06/23/24 16:59 650 mg QID SHYLA Administration Ezetimibe 10 mg 05/23/24 21:00 05/25/24 20:36 Ezetimibe 10 Mg Tab PO 06/22/24 20:59 10 mg HS SHYLA Administration Hydromorphone HCl 1 mg 05/24/24 16:07 05/26/24 05:53 Hydromorphone Inj 1 Mg/Ml Syringe IV 06/07/24 16:06 1 mg Q6H PRN Administration Severe Pain (Scale 7, 8, 9,10) Hydromorphone HCl 0.5 mg 05/24/24 16:07 05/24/24 19:44 Hydromorphone Inj 0.5 Mg/0.5 Ml Syr IV 06/07/24 16:06 0.5 mg Q6H PRN Administration Pain Levetiracetam 500 mg 05/24/24 09:00 05/25/24 20:36 Levetiracetam 500 Mg Tab PO 06/23/24 08:59 500 mg BID SHYLA Administration Multivitamins 1 tab 05/24/24 09:00 05/25/24 07:43 Multivitamin Tab PO 06/23/24 08:59 1 tab DAILY SHYLA Administration Oxycodone HCl 15 mg 05/25/24 19:45 05/26/24 07:50 Oxycodone Hcl 15 Mg Tabcr (Oxycontin) PO 06/08/24 19:44 15 mg Q12H SHYLA Administration Polyethylene Glycol 17 gm 05/25/24 21:00 05/25/24 20:35 Polyethylene (Miralax) 17 Gm Pack PO 06/24/24 20:59 17 gm BID SHYLA Administration Pravastatin Sodium 20 mg 05/24/24 09:00 05/25/24 07:44 Pravastatin Sod 20 Mg Tab PO 06/23/24 08:59 20 mg QAM SHYLA Administration NPO Date Last Intake of Fluids: 05/22/24 Time Last Intake of Fluids: 21:00 Last Intake of Fluids Comment: WATER Date Last Intake of Solids: 05/22/24 Time Last Intake of Solids: 16:30 Past Medical History Medical History Hx of one miscarriage Past Family History Family History Mother Bipolar disorder Cardiac disorder Depression Diabetes Gallbladder disease Myocardial infarction Hypertension Heart disease Father Cardiac disorder Diabetes Hypertension Myocardial infarction Heart disease Sister Cardiac disorder Myocardial infarction Brother Diabetes Hypertension Stroke Denies family history of Ovarian cancer Prostate cancer Breast cancer Colorectal cancer Past Surgical History Surgical History H/O tooth extraction History of oral surgery H/O kidney donation S/P dilatation and curettage x 2 Social History Smoking Status: Former smoker tobacco type: cigarettes Do You Dip or Chew Tobacco: No Smoking End Date: "at 15 years old" Hx Alcohol Use: No Hx Substance Use: No substance use type: does not use Physical Exam Vital Signs Last Vital Signs Temp 36.7 C 05/26/24 07:33 Pulse 70 05/26/24 07:33 Resp 18 05/26/24 07:33 BP 140/86 05/26/24 07:33 Pulse Ox 95 05/26/24 07:33 O2 Del Method Room Air 05/26/24 07:33 O2 Flow Rate 1 05/25/24 11:23 Testing Laboratory Results 05/25/24 06:18 05/25/24 06:18 Urine Color Yellow 05/24/24 16:00 Urine Appearance Clear (Clear) 05/24/24 16:00 Urine pH 5.5 (4.5-7.5) 05/24/24 16:00 Ur Specific [place] 1.024 (1.000-1.030) 05/24/24 16:00 Urine Protein Trace (Negative) H 05/24/24 16:00 Urine Glucose (UA) Negative (Negative) 05/24/24 16:00 Urine Ketones 1+ (Negative) H 05/24/24 16:00 Urine Nitrite Negative (Negative) 05/24/24 16:00 Ur Leukocyte Esterase 1+ (Negative) H 05/24/24 16:00 Urine WBC (Auto) 21-50 /hpf (0-5) H 05/24/24 16:00 Urine RBC (Auto) 0-2 /hpf (0-2) 05/24/24 16:00 U Hyaline Cast (Auto) 0-2 /lpf (0-2) 05/24/24 16:00 U Epithel Cells (Auto) 0-2 /hpf (0-2) 05/24/24 16:00 Urine Bacteria (Auto) None Seen (None Seen) 05/24/24 16:00 Blood Type O Negative 05/25/24 09:28 Antibody Screen NEGATIVE 05/25/24 09:28 05/24/24 16:00 Urine Culture - Preliminary Urine,Clean Catch Staphylococcus epidermidis
[2024-05-26] MEDS ORDERED: BUPIVACAINE 0.5 % 5 MG/1 ML PF 10ML VIAL ONE (09:10)
[2024-05-26] MEDS ORDERED: Nursing to Pharmacy Communication STA (11:42)
--- NOTE | 2024-05-26 11:50 | History & Physical Bridge Note ---
Date of Service May 26, 2024 History & Physical Bridge Note I have examined the patient, reviewed the History & Physical and in the interval since the performance of the History & Physical I have noted the following changes of clinical significance: no changes noted
[2024-05-26] MEDS ORDERED: ePHEDrine sulfate 50 MG/ML AMP IV PRN (12:13)
[2024-05-26] MEDS ORDERED: ATROPINE SULFATE 0.1 MG/ML 10ML SYR IV PRN (12:13)
[2024-05-26] MEDS ORDERED: fentaNYL citrate PF 100 MCG/2 ML VIAL IV PRN (12:13)
[2024-05-26] MEDS ORDERED: DEXAMETHASONE SOD INJ 4 MG/ML VIAL ONE (12:26)
[2024-05-26] MEDS ORDERED: fentaNYL citrate PF 100 MCG/2 ML VIAL ONE (12:26)
[2024-05-26] MEDS ORDERED: PROPOFOL IV EMULSION 10 MG/ML 20 ML VIAL IV ONE (12:26)
[2024-05-26] MEDS ORDERED: MIDAZOLAM HCL 1 MG/ML 2ML VIAL ONE (12:26)
[2024-05-26] MEDS ORDERED: ONDANSETRON INJ 2 MG/ML 2 ML VIAL ONE (12:26)
[2024-05-26] MEDS ORDERED: LIDOCAINE 2% 2 ML VIAL/AMP(20MG/ML) INFIL ONE (12:26)
[2024-05-26] MEDS: LACTATED RINGER'S 1,000 ML IV SCH (12:33)
[2024-05-26] MEDS: ceFAZolin 2000MG 2,000 MG/15 ML SYR IV ONE (13:12)
[2024-05-26] MEDS ORDERED: GLYCOPYRROLATE 0.2 MG/ML VIAL ONE (13:27)
[2024-05-26] MEDS ORDERED: PHENYLEPHRINE 100MCG/ML 5ML SYR ONE ×2 (13:27→14:11)
[2024-05-26] MEDS ORDERED: SODIUM CHLORIDE 0.9% PF INJ 10 ML VIAL ONE (13:46)
[2024-05-26] MEDS ORDERED: ePHEDrine sulfate 50 MG/ML AMP ONE (13:46)
[2024-05-26] MEDS: ROPIVACAINE 0.5% HCL/PF 246 MG, Ketorolac (*for OR use only*) 30 MG, EPINEPHrine 30MG/3... INFIL ONE (14:06)
--- NOTE | 2024-05-26 14:36 | Operative Report ---
PG Post Operative Report Pre & Post Diagnosis Operation Date: 05/26/24 08:20 Pre-Op Diagnosis: Four-part fracture dislocation of the right shoulder Post-Op Diagnosis: Four-part fracture dislocation of the right shoulder I identified the patient and participated in the time-out.: Yes Procedure Operation Date: 05/26/24 08:20 Actual Procedures p Right Reverse Total Shoulder Arthroplasty(Right)With open biceps tenodesis as a distinct and separate procedure (modifier 59) - Pee Anaya DO Surgeon Pee Anaya DO Shipping/Receiving Clerk Leandro Velasquez PA-C Estimated Blood Loss 200 Findings Consistent with Post-Op Diagnosis Specimens Right humeral head Description of Procedure A CPT code modifier 59: The long head of the biceps tendon was frayed and damaged secondary to the fracture. A tenodesis was opted. This was a separate and distinct portion of the procedure. For these reasons, a CPT code modifier 59 will be added to this case. Implants used: I used a [employer] Comprehensive fracture reverse total shoulder arthroplasty system with a size 8 press fit standard fracture humeral stem, a +6 offset humeral tray and a Standard humeral bearing, a 25 mm small augment baseplate with a 6.5 mm central screw and superior and inferior locking screws, and a size 36 mm eccentric glenosphere. Imelda arrived at [facility] for the above procedure. She was seen in the preoperative holding area and the operative extremity was identified and signed. She was given a preoperative antibiotic, TXA, and an interscalene nerve block. She was taken back to the operating room, laid on table in supine position, and put under general anesthesia. She was then put into the beachchair position. The shoulder was then prepped and draped in sterile fashion. A timeout was done and the patient and the operative extremity was properly identified. A deltopectoral approach was used. Dissection was taken down through the fascia and the deltoid was retracted laterally and the conjoined tendon was retracted medially. The fracture was easily exposed. The biceps groove was opened up and the biceps tendon was examined extensively. The biceps tendon demonstrated fraying and damage secondary to the trauma and fracture. The long head of the biceps tendon was then tenodesed to the upper border of the pectoralis major. This was a separate and distinct portion of the procedure. An oscillating saw and osteotome were then used to separate the lesser tuberosity fragment and the greater tuberosity fragment from the humeral head. The humeral head was then removed. Time was then spent shaping the greater and lesser tuberosities. Four #5 FiberWire sutures were passed through the infraspinatus at its articular junction. These would later be used for a repair of the rotator cuff around the prosthesis. The glenoid was then easily exposed. Time was spent doing a complete circumfere ntial capsular release. The glenoid guide was then placed in the inferior aspect of the glenoid. A 3.2 mm Steinmann pin was then placed into the glenoid vault at 10 of inclination. The glenoid baseplate was then reamed. The final size 25 mm small augment baseplate was then impacted in the place. A 6.5 mm central screw was then placed followed by superior and inferior locking screws. A 36 mm eccentric glenosphere was then impacted into place. Surrounding soft tissues were then injected with 100 cc an orthopedic pain control cocktail. The proximal humerus was then exposed. A canal finding reamer was sent down the center of the humeral canal. Sequential reaming up to a size 8 reamer was done. A size 8 trial humeral stem was then impacted into place at 25 degrees of retroversion. A Plastics office at humeral tray was then placed on the humeral trial stem and the shoulder was reduced. The shoulder was brought through a full range of motion and felt to be stable. Two #5 FiberWire sutures were passed through the humeral shaft for later rotator cuff and tuberosity fixation. The final size 8 standard fracture humeral stem was then impacted into place. A Standard humeral bearing was snapped onto a +6 offset humeral tray. The humeral tray was then impacted on the humeral stem. The shoulder was then reduced. The shoulder was brought through a full range of motion and felt to be stable. 2 of the FiberWire sutures were passed through the holes of the fracture stem and passed around the stem to reduce the greater tuberosity. 2 additional sutures were passed through holes of the fracture stem and passed around the stem to reduce the lesser tuberosity. The 2 humeral shaft sutures were used to pull down the lesser tuberosity and the greater tuberosity to keep them from migrating medially. The shoulder was brought through a full range of motion. I was happy with the overall reduction of the tuberosities and the motion of the shoulder. A dilute betadyne lavage was then done for 3 minutes. The joint was then irrigated with normal saline solution. Hemostasis was obtained. The interval was closed with 2-0 Vicryl suture. The skin was then closed with 2-0 Vicryl and nita. A Silverlon dressing was placed and the arm was rested in a regular arm sling. She was then extubated and transferred to a hospital bed. She taken to the postanesthesia care unit in stable condition. She tolerated the procedure well. Leandro Velasquez PA-C, was present for the entire procedure. He was critical for patient positioning, prepping, draping, retraction exposure, wound closure and application of sterile dressing. I attest to the content of the Intraoperative Record and any orders documented therein. Any exceptions are noted below.
--- NOTE | 2024-05-26 14:58 | Anesthesiology Progress Note ---
Date of Service May 26, 2024 Anesthesia Post Procedure Vital Signs Vital Signs: Temp Pulse Pulse Resp BP Pulse Ox O2 Del Method 05/26/24 14:50 83 17 141/72 H 99 Oxymask 05/26/24 14:43 36.2 C L 91 H 18 132/80 97 Oxymask 05/26/24 11:09 36.8 C 62 18 147/73 H 92 Room Air 05/26/24 08:14 71 05/26/24 07:33 36.7 C 70 18 140/86 95 Room Air 05/26/24 02:48 36.7 C 66 18 131/82 91 Room Air 05/26/24 00:00 36.9 C 69 18 144/73 H 90 Room Air 05/25/24 21:42 66 05/25/24 20:00 37.1 C 68 17 136/78 90 Room Air 05/25/24 16:00 36.8 C 74 18 137/66 91 Room Air 05/25/24 15:04 74 O2 Flow Rate 05/26/24 14:50 8 05/26/24 14:43 8 05/26/24 11:09 05/26/24 08:14 05/26/24 07:33 05/26/24 02:48 05/26/24 00:00 05/25/24 21:42 05/25/24 20:00 05/25/24 16:00 05/25/24 15:04 Pain Intensity Right Shoulder: Pain Intensity: 5 Transfer of Care Handoff Completed per policy Notes Mental Status: alert / awake / arousable Patient Amnestic to Procedure: Yes Nausea / Vomiting: adequately controlled Pain: adequately controlled Airway Patency, RR, SpO2: stable & adequate BP & HR: stable & adequate Hydration State: stable & adequate Anesthetic Complications: no major complications apparent and Pt Satisfied with anesthetic care
--- NOTE | 2024-05-26 15:06 | Anesthesiology Progress Note ---
Date of Service May 26, 2024 Anesthesia Post Procedure Vital Signs Vital Signs: Temp Pulse Pulse Resp BP Pulse Ox O2 Del Method 05/26/24 15:00 81 17 116/65 96 Oxymask 05/26/24 14:50 83 17 141/72 H 99 Oxymask 05/26/24 14:43 36.2 C L 91 H 18 132/80 97 Oxymask 05/26/24 11:09 36.8 C 62 18 147/73 H 92 Room Air 05/26/24 08:14 71 05/26/24 07:33 36.7 C 70 18 140/86 95 Room Air 05/26/24 02:48 36.7 C 66 18 131/82 91 Room Air 05/26/24 00:00 36.9 C 69 18 144/73 H 90 Room Air 05/25/24 21:42 66 05/25/24 20:00 37.1 C 68 17 136/78 90 Room Air 05/25/24 16:00 36.8 C 74 18 137/66 91 Room Air O2 Flow Rate 05/26/24 15:00 4 05/26/24 14:50 8 05/26/24 14:43 8 05/26/24 11:09 05/26/24 08:14 05/26/24 07:33 05/26/24 02:48 05/26/24 00:00 05/25/24 21:42 05/25/24 20:00 05/25/24 16:00 Pain Intensity Right Shoulder: Pain Intensity: 5 Transfer of Care Handoff Completed per policy Notes Mental Status: alert / awake / arousable Patient Amnestic to Procedure: Yes Nausea / Vomiting: adequately controlled Pain: adequately controlled Airway Patency, RR, SpO2: stable & adequate BP & HR: stable & adequate Hydration State: stable & adequate Anesthetic Complications: no major complications apparent and Pt Satisfied with anesthetic care
[2024-05-26] MEDS: ONDANSETRON INJ 2 MG/ML 2 ML VIAL IV PRN (15:23)
--- NOTE | 2024-05-26 15:51 | XRay Report ---
XR shoulder RT min 2V routine CLINICAL HISTORY: Post shoulder surgery COMPARISON: 05/23/2024 FINDINGS: Interval right shoulder prosthesis shows no hardware complication. There is expected soft tissue gas. Skin nita are present. IMPRESSION: Unremarkable postoperative exam. ACT 112: Negative or not required by law. Electronically signed by: Marlon Reid M.D. 05/26/2024 3:49 PM
[2024-05-26] MEDS ORDERED: METOCLOPRAMIDE HCL INJ 5 MG/ML 2 ML VIAL IV PRN (16:18)
[2024-05-26] MEDS ORDERED: bisacodyL 10 MG SUPP PR PRN (16:18)
[2024-05-26] MEDS ORDERED: NALOXONE HCL 0.4 MG/1 ML VIAL/CARP IV PRN (16:18)
[2024-05-26] MEDS ORDERED: MAGNESIUM HYDROXIDE SUSP 30 ML UDC PO PRN (16:18)
[2024-05-26] MEDS ORDERED: ONDANSETRON INJ 2 MG/ML 2 ML VIAL IV PRN (16:18)
[2024-05-26] MEDS: KETOROLAC TROMETHAMINE 15 MG/ML VIAL IV SCH (16:55)
[2024-05-26] MEDS: ceFAZolin 1000MG 1,000 MG/7.5 ML SYR IV SCH (20:53)
[2024-05-26] MEDS: DOCUSATE SODIUM 100 MG CAP PO SCH (20:53)
[2024-05-26] MEDS: SENNA 8.6 MG TAB PO SCH (20:53)
--- NOTE | 2024-05-26 22:37 | Hospitalist Progress Note ---
Date of Service May 26, 2024 Assessment & Plan (1) Seizure: Plan: Nocturnal seizure in a 68 yo female resulting in a closed acute humeral fracture Admitted to PCU Consulted neuro. Now on Keppra BID reviewed renal funtion on 05/26: normal vitals stable (2) Closed fracture dislocation of right shoulder: Plan: consulted ortho. S/P surgery repair. Increased pain medicine: dilaudid 1 mg for severe pain and 0.5 mg for moderate pain Added tylenol QID. will add oxycontin extrended release for pain control especially when patient is resting. dvt prohylaxis on hold due to surgery. Pain appears better controlled. Plan Dyslipidemia: resumed home meds Admission and Anticipated Discharge Date Admission Date: May 23, 2024 Subjective PAtient reports feeling somewhat loopy after the surgery. She has no new complaints. Physical Exam Physical Exam: General: NAD, right arm in sling Cardio: RRR, no M/G/R, S1 and S2 normal Resp: Lungs CTA B/L Abdomen: Soft, Neuro: CN II-XII normal. Results & Data Results & Data Vital Signs (Past 12 Hours) Vital Signs Temp Pulse Pulse Resp BP Pulse Ox O2 Del Method 05/26/24 20:22 36.9 C 70 18 137/63 94 Nasal Cannula 05/26/24 17:58 37.0 C 75 18 119/69 94 Nasal Cannula 05/26/24 17:12 72 05/26/24 16:48 36.4 C 18 142/72 H 93 Nasal Cannula 05/26/24 16:34 36.7 C 72 18 142/72 H 90 Nasal Cannula 05/26/24 16:00 36.4 C L 76 16 129/80 93 Nasal Cannula 05/26/24 15:35 80 19 125/75 92 Room Air 05/26/24 15:25 80 20 136/70 92 Room Air 05/26/24 15:20 36.6 C 79 19 138/61 92 Room Air 05/26/24 15:10 86 16 133/67 92 Room Air 05/26/24 15:00 81 17 116/65 96 Oxymask 05/26/24 14:50 83 17 141/72 H 99 Oxymask 05/26/24 14:43 36.2 C L 91 H 18 132/80 97 Oxymask 05/26/24 11:09 36.8 C 62 18 147/73 H 92 Room Air O2 Flow Rate 05/26/24 20:22 1 05/26/24 17:58 1.0 05/26/24 17:12 05/26/24 16:48 2 05/26/24 16:34 2.0 05/26/24 16:00 2 05/26/24 15:35 0 05/26/24 15:25 0 05/26/24 15:20 0 05/26/24 15:10 0 05/26/24 15:00 4 05/26/24 14:50 8 05/26/24 14:43 8 05/26/24 11:09 PG Care Time/CCT Total # of Minutes Spent Total Time Spent with Patient: Total time spent is greater than 50% in coordination of care (as documented) at patient's floor/unit and/or counseling patient: Coding Level of Care Code 23099 SUB INP/OBS CARE 3/50MIN Diagnoses Seizure R56.9 Closed fracture dislocation of right shoulder S42.91XA
[2024-05-27 07:37] LABS: Hemoglobin 10.3 g/dl (12.0-16.0); Mean Corpuscular Hemoglobin 30.9 pg (25.0-34.0); Mean Corpuscular Hgb Conc 34.3 g/dL (32.0-36.0); Mean Corpuscular Volume 90.1 fL (80.0-100.0); Platelet Count 225 K/uL (130-400); RDW Coefficient of Variation 12.2 % (11.5-14.5); RDW Standard Deviation 40.1 fL (36.4-46.3); Red Blood Count 3.33 M/uL (4.20-5.40); White Blood Count 7.36 K/ul (4.8-10.8)
[2024-05-27 07:52] LABS: BUN Creatinine Ratio 21.9 (10-20); Calcium 8.6 mg/dl (8.6-10.3); Creatinine Clr Calc Pharmacy 75.7 ml/min
[2024-05-27] MEDS: dexAMETHasone 4 MG TAB PO SCH (08:54)
[2024-05-27] MEDS ORDERED: MULTIVITAMIN TAB PO SCH (09:00)
--- NOTE | 2024-05-27 09:34 | Orthopedic Progress Note ---
Date of Service May 27, 2024 Assessment & Plan (1) Status post reverse arthroplasty of right shoulder: Assessment: Status post right reverse total shoulder arthroplasty. Plan: 1. DVT prophylaxis SCDs and OUSMANE fowler. Primary management. 2. Awaiting PT/OT evaluation and recommendations. Nonweightbearing to the right upper extremity. Must maintain sling. 3. Pain well-controlled continue current regimen. 4. Medical management as per the primary medicine service. 5. Continue rest, ice and elevation. Keep splint/dressing clean and dry. Silverlon dressing will remain in place for 7 days. May discontinue after 7 days. 6. Patient okay for discharge from orthopedic standpoint following evaluation and recommendations from PT/OT. 7. Follow-up outpatient in orthopedic office within 2-3 weeks. 8. Recommendation of discharge on cefadroxil 500 mg twice a day for 10 days. Pain control per primary. Subjective . Imelda was seen this morning resting comfortably no apparent distress. She notes that her pain is well-controlled to the right shoulder. She is wearing her sling as directed. She has been off and out of bed without significant issues. She denies any concerns for surgical incision sites. She denies any active bleeding, discharge, or signs of infection. She denies any other concerns today. Review of Systems All systems reviewed & are unremarkable except as noted in HPI & below. Physical Exam . On physical examination of the right shoulder, the dressing is in place, clean, dry, and intact with no signs of active bleeding, discharge, or signs of infection. Arm is in the sling as directed. Limited range of motion secondary to postoperative stiffness soreness. Normal range of motion and strength at the elbow, wrist, all 5 digits. +2 radial pulse. Less than 2-second capillary refill. Normal sensation. Neurovascular intact. Results & Data Results & Data Laboratory Results . Diagnostic Findings Shoulder X-Ray 05/26/24 14:57 XR shoulder RT min 2V routine CLINICAL HISTORY: Post shoulder surgery COMPARISON: 05/23/2024 FINDINGS: Interval right shoulder prosthesis shows no hardware complication. There is expected soft tissue gas. Skin nita are present. IMPRESSION: Unremarkable postoperative exam. ACT 112: Negative or not required by law. Electronically signed by: Marlon Reid M.D. 05/26/2024 3:49 PM PG Care Time/CCT Total # of Minutes Spent Total Time Spent with Patient: Total time spent is greater than 50% in coordination of care (as documented) at patient's floor/unit and/or counseling patient: Coding Level of Care Code 27477 Post Operative Follow-Up Diagnoses Status post reverse arthroplasty of right shoulder Z96.611
[2024-05-27] MEDS: ENOXAPARIN INJ 40 MG/0.4 ML SYR SQ SCH (09:59)
--- NOTE | 2024-05-27 21:59 | Hospitalist Progress Note ---
Date of Service May 27, 2024 Assessment & Plan (1) Seizure: Plan: Nocturnal seizure in a 68 yo female resulting in a closed acute humeral fracture Admitted to PCU Consulted neuro. Now on Keppra BID reviewed renal funtion on 05/27: normal vitals stable (2) Closed fracture dislocation of right shoulder: Plan: consulted ortho. S/P surgery repair. Increased pain medicine: dilaudid 1 mg for severe pain and 0.5 mg for moderate pain Added tylenol QID. will add oxycontin extended release for pain control especially when patient is resting. dvt prophylaxis on hold due to surgery. Pain appears better controlled. Discharge held due to orthostatic hypotension. Plan Dyslipidemia: resumed home meds Admission and Anticipated Discharge Date Admission Date: May 23, 2024 Subjective 68 yo female reports no new symptoms. Physical Exam Physical Exam: General: NAD, right arm in sling Cardio: RRR, no M/G/R, S1 and S2 normal Resp: Lungs CTA B/L Abdomen: Soft, Neuro: CN II-XII normal. Results & Data Results & Data Vital Signs (Past 12 Hours) Vital Signs Temp Pulse Pulse Resp BP Pulse Ox O2 Del Method 05/27/24 19:27 36.8 C 65 18 127/84 92 Room Air 05/27/24 15:07 77 05/27/24 15:00 36.7 C 89 18 125/66 92 Room Air 05/27/24 10:56 71 18 140/68 PG Care Time/CCT Total # of Minutes Spent Total Time Spent with Patient: Total time spent is greater than 50% in coordination of care (as documented) at patient's floor/unit and/or counseling patient: Coding Level of Care Code 90573 SUB INP/OBS CARE 3/50MIN Diagnoses Seizure R56.9 Closed fracture dislocation of right shoulder S42.91XA
[2024-05-28 06:07] LABS: Hematocrit (blood only) 28.5 % (37.0-47.0); Hemoglobin 9.8 g/dl (12.0-16.0); Mean Corpuscular Hemoglobin 31.4 pg (25.0-34.0); Mean Corpuscular Hgb Conc 34.4 g/dL (32.0-36.0); Mean Corpuscular Volume 91.3 fL (80.0-100.0); Mean Platelet Volume 10.1 fL (9.4-12.4); Platelet Count 243 K/uL (130-400); RDW Coefficient of Variation 12.3 % (11.5-14.5); RDW Standard Deviation 40.7 fL (36.4-46.3); Red Blood Count 3.12 M/uL (4.20-5.40); White Blood Count 8.31 K/ul (4.8-10.8)
[2024-05-28 06:30] LABS: BUN Creatinine Ratio 22.2 (10-20); C Reactive Protein 9.49 mg/dl (0-0.5); Calcium 8.7 mg/dl (8.6-10.3); Creatinine Clr Calc Pharmacy 76.7 ml/min; Potassium 4.2 mmol/L (3.5-5.1)
[2024-05-28 08:35] VITALS: RESP 17; TEMP 97.5; O2SAT 95
--- NOTE | 2024-05-28 10:15 | Orthopedic Progress Note ---
Date of Service May 28, 2024 Assessment & Plan (1) Status post reverse arthroplasty of right shoulder: 68-year-old woman POD# 2 s/p right reverse total shoulder replacement, doing well overall. Pain is relatively well-controlled. Patient is neurologically intact. Plan: 1. DVT prophylaxis w/ early ambulation, SCDs, and OUSMANE hose. Encourage elbow, wrist, digit AROM. On Lovenox per primary service. 2. Continue PT/OT as tolerated. Sling on at all times, including while sleeping, but may come off to shower and dress. Non-WB RUE. Apply ice to right shoulder. 3. Pain control doing well with current pain regimen. 4. Silverlon dressing will remain in place for 7 days. May discontinue after 7 days. 5. Disposition - D/C per primary service. Patient okay for discharge from orthopedic standpoint once cleared by PT/OT. 6. F/u 2-3 weeks post-op w/ orthopedics (Dr. Anaya's team) for first post-op visit. 7. Recommendation of discharge on cefadroxil 500 mg twice a day for 10 days. Pain control per primary. Subjective Patient is POD# 2 s/p right reverse total shoulder arthroplasty by Dr. Anaya on 05/26/2024; procedure done secondary to fracture sustained during a seizure. Patient says her pain is relatively well-controlled this morning. She notes some axillary region pain. Denies CP, SOB, N/V, RUE paresthesia. She says that her right hand seems to be functioning better today. She performed better with therapy today, so her preference is to return home if possible. Ultimately, if PT/OT feels patient is safe to return home with assistance of her granddaughter in the short-term, who is a nurse, as well as home health care, then she will likely be able to do this. Review of Systems All systems reviewed & are unremarkable except as noted in HPI & below. Physical Exam GENERAL: AA&Ox3, NAD. Pleasant, affect is calm. Sitting in bedside chair with sling donned to RUE, well-fitting. RESPIRATORY: Normal respiratory effort with no signs of distress. CHEST/AXILLA: Chest movement symmetrical. No deformities noted. CARDIOVASCULAR: No edema noted. SKIN: Linda, warm and dry. MS/EXTREMITY: Shoulder Silverlon dressing c/d/i. + wrist/elbow/digit AROM. Median/Ulnar/Radial nerve distributions intact to sensory/motor. Radial pulse intact, 2+. Some residual ecchymosis and edema is noted to the axillary region. Results & Data Results & Data Laboratory Results . Diagnostic Findings . PG Care Time/CCT Total # of Minutes Spent Total Time Spent with Patient: Total time spent is greater than 50% in coordination of care (as documented) at patient's floor/unit and/or counseling patient: [place] [address] Post Operative Follow-Up Patient Type Established History Problem Focused Exam Problem Focused Medical Decision Making Straight Forward Diagnoses Status post reverse arthroplasty of right shoulder Z96.611
[2024-05-28 11:09] VITALS: BP 130/68; PULSE 55
--- NOTE | 2024-05-28 23:10 | Discharge Summary ---
Discharge Summary Date of Service May 28, 2024 Principal Dx & Hospital Course #1 = Principal Diagnosis (1) Seizure: Nocturnal seizure in a 68 yo female resulting in a closed acute humeral fracture Admitted to PCU Consulted neuro. Now on Keppra BID reviewed renal funtion on 05/27: normal vitals stable will recommend neuro followup. (2) Closed fracture dislocation of right shoulder: consulted ortho. S/P surgery repair. Pain appears better controlled. will discharge on oxycodone and tylenol. Discharge instructions noted below. DIscharged on antibiotics to prevent infection as per Ortho Acute blood loss anemia 68-year-old female who was undergone right reverse total shoulder arthroplasty secondary to a nocturnal seizure. : Hemoglobin has fallen from 13.4 to 10.0 Risk Factor(s): Age, humeral fracture, surgery Treatment: Intraoperative postoperative nodes, surgical vital signs per protocol, daily CBCs, type and crossmatch Plan Dyslipidemia: resumed home meds Admission HPI Per Admitting Provider 68-year-old female presenting to the ED for seizure like activity.While in bed, patient awoke with severe right shoulder pain. Patient states she bit her tongue and was incontinent. Due to severe pain and inability to steeping press tender her affected arm, patient came to the ED. Discharge Exam General: NAD, right arm in sling Cardio: RRR, no M/G/R, S1 and S2 normal Resp: Lungs CTA B/L Abdomen: Soft, Neuro: CN II-XII normal. Discharge Plan Discharge Items Patient Disposition: Home - Self-Care Reason For Visit: SEIZURE/ SHOULDER DISLOCATION Discharge Diagnosis: Shoulder dislocation Activity: Resume your previous activity Non-emergency contact: Primary Care Provider Call non-emergency contact if: you have any medication questions Follow-up/Referrals: Julissa Carr DO [Primary Care Provider] - 06/04/24 10:20 am (Hospital follow up on June 04 at 10:20 am.) Diet: Regular Addtl Attending Provider Instructions: Recommend followup with Neurology as planned. Continue Keppra twice a day. No driving for 6 months until cleared by Neurology. Followup with PCP in 1-2 weeks. Addtl Clinical Program Manager Provider Instructions: Activity and Therapy Recommendations: * If you are using [facility] then therapy will be provided at your home until they feel you have accomplished all of your goals. * If you are using [facility] then Physical Therapy will be provided until they feel you are ready to start Outpatient Physical Therapy. * If you are not using home therapy then Outpatient Physical Therapy should start about 3-5 days from your day of surgery. Therapy will last about 8-12 weeks * Wear your sling for 3 weeks, unless otherwise instructed. You may remove your sling to shower and to dress, but otherwise, you should be in your sling at all times, including while sleeping * The shoulder replacement is very stable and you can use your hand while in the sling * You were shown a series of exercises in the hospital. Do these exercises daily including the exercises you were shown in physical therapy. Medications: * Narcotic You will likely be sent home from the hospital with a prescription for the narcotic pain medication that worked best throughout your stay. * Cefadroxil -take the antibiotic twice a day for 10 days to help prevent infection. * Other medications may be prescribed for specific circumstances. If you have any questions, please call the office at . * Resume previous home medications unless otherwise instructed Dressing Care: Leave the Silverlon dressing in place for 7 days. After 7 days you may remove the dressing. If the incision is not draining then you may leave the nita open to air. If there is a little bit of drainage or if the nita are getting stuck on your clothing then cover the incision with a dry dressing. The nita will be removed at your 2 week follow-up appointment. Showering: You may shower with the Silverlon dressing in place. Do not let the shower spray hit the dressing directly. Pat the Silverlon dressing dry. If the dressing becomes wet underneath, then simply remove the dressing. Keep the incision dry until you are 7 days out from the day of surgery. After 7 days you may remove the Silverlon dressing and shower with the nita exposed. Let soapy water run over the nita and pat them dry. Do not scrub or soak the incision. Diet: You may resume your previous diet. Things To Watch For: * Drainage from the incision site that occurs more than one week after your surgery. * Increased redness at the incision site. * Fever above 102 degrees Fahrenheit. * Unusual chest pain or shortness of breath. * Call [facility] at with any of the above problems Follow-Up Visit: Follow-up with Dr. Anaya's office 2-3 weeks after your day of surgery. We will remove your nita and answer any questions. If you have any additional questions or concerns, Dr Anaya is usually in the office at the same time and will be available An appointment was probably scheduled when you signed-up for surgery in the office. If you have any questions call More detailed instructions as well as Frequently Asked Questions were provided in a folder by our office when you signed-up for surgery. Please review these instructions when you get home. If you have any further questions or concerns, please feel free to call the office at [phone] Pending Studies at Discharge: No Stand-Alone Forms: [facility], Sm[facility] C[facility] Medications and DC Order Prescriptions: New levetiracetam 500 mg tablet 500 mg PO BID Qty: 60 0RF docusate sodium 100 mg Capsule 100 mg PO BID Qty: 60 0RF oxycodone 10 mg tablet 10 mg PO Q6H PRN (Reason: severe pain (scale score 7-10)) Qty: 20 0RF acetaminophen [Aminofen] 325 mg tablet 650 mg PO Q6H Qty: 120 0RF sennosides [Senokot] 8.6 mg Tablet 17.2 mg PO HS Qty: 30 0RF polyethylene glycol 3350 [Miralax] 17 gram Powder In Packet 17 g PO BID PRN (Reason: constipation) Qty: 30 0RF cefadroxil 500 mg capsule 500 mg PO BID Qty: 20 0RF Continued hydroxyzine HCl 25 mg tablet 25 mg PO HS PRN (Reason: Insomnia) pravastatin 20 mg tablet 20 mg PO QAM ezetimibe [Zetia] 10 mg tablet 10 mg PO HS coenzyme Q10 [CoQ-10] 100 mg Capsule 100 mg PO DAILY multivitamin Tablet 1 tab PO DAILY Discharge Orders: Discharge Order (Routine); Ordered 05/28/24 Ordered By: Harris Garcia/Other Patient Handouts: How Seizures Affect the Body, Treating Epilepsy: Medicines, Self-Care for Seizures, Safety During a Seizure Admission Data Admit Date/Time: 05/23/24 14:10 Attending Provider: Harris Calixto Admit Provider: Harris Calixto Primary Care Provider: Julissa Carr Other Providers: [facility]; Harris Calixto; Huber Barriga; Jose Baxter; Cody Esteves; Elizabeth Camargo; Kait Perez; Em Tompkins; Shruthi Kamara; Kevon Spence; Afsaneh Putnam; Gonzales Rosa; Ann Vallejo; Damian Amaro; Flaco Wilkins; Ginger Kovacs; Malcolm Rawls; Michelle Carter; Pee Anaya; Howard Velasquez; Raissa Gomes; Florence Romero; Chilango Acuña; Elaine Frederick Other Interventions: Discharge Summary Assessment (RN) Last Done: 05/28/24 13:03 Hospital Stay Data Consultations 05/23/24 13:48 ED Decision to Admit Stat 05/23/24 14:12 Consult Orthopedic Surgery Routine 05/23/24 14:18 Consult Neurology Routine 05/26/24 07:03 Consult Orthopedic Surgery Routine Procedures Performed Operation Date: 05/26/24 08:20 Actual Procedures p Right Reverse Total Shoulder Arthroplasty(Right) - Pee Anaya DO Diagnostic Imagining Performed 05/23/24 08:20 CT head/brain wo con Stat 05/23/24 08:48 CT shoulder RT wo con Stat 05/26/24 12:13 US - OR guided needle placemen Routine Pending Results Patient Have Any Pending Studies at Discharge: No Discharge Instructions Given to Patient (Per Discharging Provider) Recommend followup with Neurology as planned. Continue Keppra twice a day. No driving for 6 months until cleared by Neurology. Followup with PCP in 1-2 weeks. Total Time Total Time Spent Total Time Spent (In Minutes): 32 Coding Level of Care Code 78388 INP/OBS DISCH >30 MIN Diagnoses Seizure R56.9 Closed fracture dislocation of right shoulder S42.91XA
== END 2024-05-28 15:08 | disposition home health service (06) | DRG 483 ==
LOC: ED 07:55 → 2E 14:10